=== PATIENT | male | born 1955 | race Caucasian/White ===

== ENCOUNTER 2018-01-17 13:40 | Day surgery (SDC) | payer OTHER, SELFPAY ==
[2018-01-17] VITALS (7 sets, daily range): BP systolic 91–174; BP diastolic 52–101; PULSE 45–64; RESP 14–18; TEMP 35.9–37; O2SAT 98–100
[2018-01-17] MEDS: Lactated Ringers 1,000 ML 80 ML IV (14:21)
[2018-01-17] MEDS: MetroNIDAZOLE 500 MG/100 ML BAG 100 MG IVPB (14:30)
[2018-01-17] MEDS: Bupivacaine 0.5% Pres-Free 30 ML VIAL (15:23)
--- NOTE | 2018-01-17 16:06 | ROE_ITS ---
Date of service: 01/17/18 Operative Note DATE OF PROCEDURE: 01/17/18 PRE-OP DIAGNOSIS: Internal strangulated hermorrhoids and external hemorrhoids POST-OP DIAGNOSIS: same PROCEDURE: Circumferential internal and external hemorrhoidectomy SURGEON: Huong Holcomb ANESTHESIA: GETA (jc Manuel CRNA) and local (Exparel mixed 50/50 with 0.5% marcaine) ESTIMATED BLOOD LOSS: 10 PATHOLOGY: none sent COMPLICATIONS: None Patient was transported to: PACU Patient's condition: stable Indications: Mr. Dumont is a pleasant 62 year old male with a history of Grade 4 internal hemorrhoids who was seen in the office today for increased pain and inability to reduce the hemorrhoids. Risks, benefits and complications of the procedure were reviewed. Complications include but are not limited to bleeding, pain, infection, recurrance and adverse reaction to the medications. Findings: Grade 4 strangulated internal hemorrhoids as well as grade 4 thrombosed external hemorrhoids. Procedure Description: After informed consent was obtained the patient was taken to the operating room and placed in a supine position on the gurney. Monitors were applied and he was then placed under general anesthesia and intubated. Once the tube was secured the patient was placed in a prone position on the operating room table making sure that he had padding under his arms hips and knees. A timeout was then done and the patient's name, date of , allergies to medications, antibiotic given, procedure type were all reviewed. Next the patient's buttocks were using tape on either side pulling them laterally. His anal area was then prepped and draped in a sterile surgical fashion using iodine. Next a rectal examination was done with my finger and I could not feel any masses internally. The large grade 4 strangulated internal hemorrhoid on the left side was grasped with a [place] and excised using a LigaSure instrument. And make sure that the thrombosed vessels underneath were cut and coagulated. Next the large grade 4 external hemorrhoid on that same side was grasped with [place] and again resected using a LigaSure instrument. There were a few areas that pulled apart and these were closed using 2-0 chromic suture. The same thing was done on the grade 4 internal hemorrhoids on the right side as well as the external grade 4 hemorrhoids on the right side. Once all the edematous tissue and the underlying vessels were removed and anal scope was gently introduced. No other internal hemorrhoids were identified at this time. Next the Exparel and Marcaine mixture was injected circumferentially around the anus for postoperative pain. Skin was cleaned with normal saline and a pad and panties were placed on the patient. The drapes were removed and the patient was placed back on the [place] in a supine. Patient was then woken up and extubated and taken back to recovery in stable condition. Instrument needle and sponge counts were correct at the end of the case x2. This operative report was dictated with Jay.
--- NOTE | 2018-01-17 16:08 | W.PM.DSUDISC ---
Discharge Plan Disposition Patient Disposition: HOME Condition: Fair Discharge Details Reason For Visit: Strangulated internal and external hemorrhoids Attending Provider: Huong Holcomb Primary Care Provider: Caro Paredes V Home Meds and New Rx's Prescriptions: New hydrocodone-acetaminophen 5-325 mg tablet 1 tab PO Q6H PRN (Reason: pain) Qty: 14 RF: 0 ibuprofen 600 mg tablet 600 mg PO QID PRN (Reason: pain) Qty: 90 RF: 0 metronidazole 500 mg tablet 500 mg PO TID Qty: 6 RF: 0 lidocaine HCl 2 % jelly 1 applic TP TID PRN (Reason: pain) Qty: 50 RF: 0 Continue docusate sodium [Colace] 100 MG capsule 100 mg PO BID Qty: 30 RF: 1 Discontinued ibuprofen 200 MG capsule 400 mg PO PRN PRNRF: 0 Discharge Instructions Instructions: Hemorrhoidectomy (DC) Additional Instructions: Follow up: January 28. Please call my office on Saturday to get a time. Medications: Tylenol 650 mg every 6 hours as needed Ibuprofen 600 mg every 6 hours as needed You may alternate between tylenol and Ibuprofen every 3 hours Hydrocodon/tylenol, 1 tab every 6 hours as needed for severe pain only. Please try to avoid this as it may cause constipation Miralax stool softner as needed daily to avoid constipation Other: Sitz baths at least 4 times a day but may do more often as needed for pain Do not sit for long periods of time Do not strain when going to the bathroom. You may bleed for a while. If it is more then 3-4 tbsp at a time then please call or go to the Emergency department. 1. Because there will be medication in your system for the next 24 hours, you may feel a little sleepy. Your coordination will be affected. Therefore: a. Do not drive or operate dangerous equipment for 24 hours. b. Do not drink alcohol beverages for 24 hours (not even beer). c. Plan to go home and rest for the day. 2. Generally the only restriction on your activity is no lifting, pulling or pushing more then 20 lb for 4 weeks. You may feel fatigued for 2-4 weeks. 3 After you arrive home you may have a light meal and return to a normal diet as you can tolerate it without feeling sick to your stomach. 4. After surgery, you may feel pain or discomfort. Take the medications as prescribed. 5. If there are any questions regarding the findings of your procedure, please feel free to contact your doctor. 6. If you are unable to contact your doctor with a problem, contact the hospital at [phone]. 7. Continue all your regular medications unless directed otherwise. 8. You are being prescribed a Narcotic pain medication. Narcotic pain medications have an addiction potential for everyone. It is important that you take the medication as prescribed There is a limit on how many tablets we can prescribed, this has been decided by the state Please keep the medications in a secure place and do not let anyone know you have them at home If you have medication left over please discard them by crushing them in a little water and mixing in used coffee grounds or cat litter and putting in the trash. I understand the above instructions and have no questions. Signature of Patient or Responsible Adult Escort Date/Time Name of Responsible Adult Escort Signature of Nurse Date/Time Activity:: Activity as Tolerated Diet:: high fiber diet Discharge Orders Discharge Orders: Discharge Order (Routine); Ordered 01/17/18 Ordered By: Huong Holcomb DS: Diagnosis Discharge Diagnosis (1) Strangulated internal hemorrhoids: Status: Acute (2) Strangulated external hemorrhoids: Status: Acute
== END 2018-01-17 17:25 | disposition home or self-care (01) ==
PROVIDERS: PCP Family Medicine; Visit Provider Surgery
PROC: (CPT 46260; principal; 2018-01-17 14:00)
DX: K64.3 Fourth degree hemorrhoids (principal); K64.5 Perianal venous thrombosis; F17.210 Nicotine dependence, cigarettes, uncomplicated
CPT/HCPCS: 46260; J0131; J2250; J2405; J3010

== ENCOUNTER 2018-01-20 10:14 | Emergency (ER) | payer OTHER, SELFPAY ==
[2018-01-20 10:24] VITALS: BP 170/109; PULSE 81; RESP 22; TEMP 36.9; O2SAT 100
--- NOTE | 2018-01-20 10:42 | DI.CT_ITS ---
SYMPTOM/DIAGNOSIS: ABD PAIN AFTER HEMORRHOIDECTOMY, CONSTIPATION ABDOMEN AND PELVIC CT: CT examination of the abdomen and pelvis was performed without contrast administration. There is a bi-lobed right middle lobe intrapulmonary nodule measuring between 6 and 7 mm. in diameter. This appears stable in comparison with previous chest CT of 12/13/16. No additional findings in the lung bases. Liver, spleen and pancreas appear unremarkable by noncontrast criteria. Gallbladder and bile ducts are CT normal. Adrenals and kidneys appear normal. No urinary tract calcification or obstruction. Abdominal aorta is of normal diameter. No abdominal or pelvic adenopathy. No significant abdominal wall hernia. Colonic diverticulosis noted without diverticulitis. Normal appearance of the appendix. Moderate quantity of fecal material throughout the colon consistent with mild constipation. CONCLUSION: No evidence of acute intra-abdominal process. Stable bi-lobed right middle lobe, well circumscribed intrapulmonary nodule, low dose chest CT recommended for follow up in 12 months.
--- NOTE | 2018-01-20 10:44 | W.ED.GENAD ---
Discharge Plan Disposition Patient Disposition: HOME Condition: Improving Discharge Details Chief Complaint: Abd Prob Clinical Impression: Constipation Primary Care Provider: Caro Paredes V ED Provider: Joe Parisi Home Meds and New Rx's Prescriptions: Continue docusate sodium [Colace] 100 MG capsule 100 mg PO BID Qty: 30 RF: 1 hydrocodone-acetaminophen 5-325 mg tablet 1 tab PO Q6H PRN (Reason: pain) Qty: 14 RF: 0 metronidazole 500 mg tablet 500 mg PO TID Qty: 6 RF: 0 Discharge Instructions Instructions: Constipation (ED) Additional Instructions: Home to rest today. Continue your medications as prescribed including lidocaine ointment topically on rectum Begin MiraLAX as prescribed by . Return to the emergency department for any acute concerns Medical Decision Making 62-year-old male who presents with abdominal pain postop day #3 status post hemorrhoidectomy. He is mildly tender in his abdomen but does not of the fever and his vital signs are stable. He is describing constipation. Differential diagnosis would include ileus, bowel obstruction, perforation. Patient was given small aliquots of analgesic. He is referred for CT scan and laboratory testing. The patient's diagnostic studies are reassuring without evidence of infection, perforation, obstruction. Does have a moderate fecal load. Patient's pain is improved. He did not been taking his prescribed MiraLAX which I have him initiate. He is stable for outpatient management and will return to the ER for any acute concerns. Lab Data Lab results reviewed: Yes I reviewed the patient's lab results. Laboratory Tests Range/Units 01/20/18 01/20/18 10:20 10:20 WBC (4.4-10.8) k/cumm 5.72 RBC (4.50-6.00) m/cumm 4.88 Hgb (13.5-17.5) g/dL 15.2 Hct (40.0-50.0) % 43.6 MCV (80-95) fL 89.3 MCH (27.0-33.0) pg 31.1 MCHC (32.0-36.0) g/dL 34.9 RDW (11.8-14.1) % 13.7 Plt Count (130-400) x1000/uL 174 MPV (8.0-11.0) fL 10.4 Immature Gran % 0.2 Neutrophils % 72.7 Lymphocytes % 18.9 Monocytes % 7.2 Eosinophils % 0.5 Basophils % 0.5 Absolute Neutrophils (1.2-6.7) k/cumm 4.16 Absolute Lymphocytes (1.2-3.4) k/cumm 1.08 L Absolute Monocytes (0.11-0.7) k/cumm 0.41 Absolute Eosinophils (0.0-0.7) k/cumm 0.03 Absolute Basophils (0.0-0.2) k/cumm 0.03 Sodium (136-145) mmol/L 140 Potassium (3.5-5.1) mmol/L 4.0 Chloride (98-107) mmol/L 103 Carbon Dioxide (21.0-32.0) mmol/L 19.7 L Anion Gap (3-11) mmol/L 17.3 H BUN (7-18) mg/dL 21 H Creatinine (0.70-1.30) mg/dL 0.95 Estimated GFR/1.73 m2 (mL/min/1.73m2) >= 60.00 Glucose (70-100) mg/dL 82 Calcium (8.5-10.1) mg/dL 9.0 Total Bilirubin (0.2-1.0) mg/dL 0.8 AST (15-37) U/L 18 ALT (12-78) U/L 21 Alkaline Phosphatase (46-116) U/L 71 Total Protein (6.4-8.2) g/dL 7.8 Albumin (3.4-5.0) g/dL 3.8 HPI General Mode of arrival: ambulatory. Date/Time Provider Initiated Documentation: 01/20/18 10:32. Limitations to Documentation: no limitations. Information obtained by: patient. History of Present Illness 62 year old M presents to the emergency department with the chief complaint of Abdominal pain, described as moderate, Quality is described as aching, and is localized to the abdomen. Patient started experiencing this day(s) and it has been constant. No relieving factors improve symptom(s), No exacerbating factors reported . Patient notes headaches, loss of appetite, malaise and nausea/vomiting. HPI Narrative: Abdominal pain: 62-year-old male who underwent successful hemorrhoidectomy on Saturday. Now presents postop day #3 with 3 days of constant lower abdominal pain, nausea, mild bloating, associated constipation. He had subjective fevers. Minimal exacerbating or ameliorating factors. Related Data Home Medications Medication Instructions Recorded Confirmed docusate sodium [Colace] 100 mg PO BID #30 cap 04/01/13 01/20/18 hydrocodone-acetaminophen 1 tab PO Q6H PRN #14 tab 01/17/18 01/20/18 metronidazole 500 mg PO TID #6 tab 01/17/18 01/20/18 Previous Rx's Medication Instructions Recorded docusate sodium [Colace] 100 mg PO BID #30 cap 04/01/13 hydrocodone-acetaminophen 1 tab PO Q6H PRN #14 tab 01/17/18 metronidazole 500 mg PO TID #6 tab 01/17/18 Allergies Allergy/AdvReac Type Severity Reaction Status Date / Time ct scan dye Allergy Mild Hives Uncoded 03/19/17 08:10 General Stated Complaint: Abd Prob PURA: 3 Review of Systems Review of Systems 8 systems reviewed and otherwise negative [facility] Medical History Internal hemorrhoids with complication (Acute) Smoker TIA (transient ischemic attack) Social History Smoking/Tobacco Use Status: Current every day Surgical History Colonoscopy - MAC (03/19/17) Hemorrhoidectomy Exam Narrative Exam Narrative: GEN: awake, alert, oriented 3. Pleasant, well groomed, interactive. HEAD: Normocephalic, atraumatic ENT: Mucous membranes moist, oropharynx unremarkable, External ear exam unremarkable EYES: PERRL, EOMI NECK: Full ROM, no FRITZ, no menigismus CHEST/RESP: Nontender, clear to auscultation bilateral, no wheeze/rhonchi/rales CARDIOVASCULAR: RRR, no murmur, rub arcelia. 2+ Rad pulse bilateral ABDOMEN: Soft, tender in the left lower quadrant without rebound or guard, no mass. +Bowel sounds. He has perirectal ecchymosis and tenderness. Digital rectal exam deferred EXT: Full ROM, no edema, no rash Neuro: Grossly normal neurologic exam, conversant, interactive. Psych: Speech fluent, thoughts congruent, affect normal Course Vital Signs Temperature 36.9 C 01/20/18 10:24 Pulse 81 01/20/18 10:24 Respiratory Rate 22 01/20/18 10:24 Blood Pressure 170/109 H 01/20/18 10:24 Pulse Oximetry 100 01/20/18 10:24 Temperature 36.9 C 01/20/18 10:24 Temperature Source Temporal Artery Scan 01/20/18 10:24 Pulse 81 01/20/18 10:24 Respiratory Rate 22 01/20/18 10:24 Respiratory Effort 01/20/18 10:28 Blood Pressure 170/109 H 01/20/18 10:24 Pulse Oximetry 100 01/20/18 10:24 Oxygen Delivery Method Room Air 01/20/18 10:24 Oxygen Flow Rate 0 01/20/18 10:24 Pain Level 4 01/20/18 10:24
--- NOTE | 2018-01-20 10:47 | ED.GENADUL_ITS ---
Discharge Plan Disposition Patient Disposition: HOME Condition: Improving Discharge Details Chief Complaint: Abd Prob Clinical Impression: Constipation Primary Care Provider: Caro Paredes V ED Provider: Joe Parisi Home Meds and New Rx's Prescriptions: Continue docusate sodium [Colace] 100 MG capsule 100 mg PO BID Qty: 30 RF: 1 hydrocodone-acetaminophen 5-325 mg tablet 1 tab PO Q6H PRN (Reason: pain) Qty: 14 RF: 0 metronidazole 500 mg tablet 500 mg PO TID Qty: 6 RF: 0 Discharge Instructions Instructions: Constipation (ED) Additional Instructions: Home to rest today. Continue your medications as prescribed including lidocaine ointment topically on rectum Begin MiraLAX as prescribed by . Return to the emergency department for any acute concerns Medical Decision Making 62-year-old male who presents with abdominal pain postop day #3 status post hemorrhoidectomy. He is mildly tender in his abdomen but does not of the fever and his vital signs are stable. He is describing constipation. Differential diagnosis would include ileus, bowel obstruction, perforation. Patient was given small aliquots of analgesic. He is referred for CT scan and laboratory testing. The patient's diagnostic studies are reassuring without evidence of infection, perforation, obstruction. Does have a moderate fecal load. Patient's pain is improved. He did not been taking his prescribed MiraLAX which I have him initiate. He is stable for outpatient management and will return to the ER for any acute concerns. Lab Data Lab results reviewed: Yes I reviewed the patient's lab results. Laboratory Tests Range/Units 01/20/18 01/20/18 10:20 10:20 WBC (4.4-10.8) k/cumm 5.72 RBC (4.50-6.00) m/cumm 4.88 Hgb (13.5-17.5) g/dL 15.2 Hct (40.0-50.0) % 43.6 MCV (80-95) fL 89.3 MCH (27.0-33.0) pg 31.1 MCHC (32.0-36.0) g/dL 34.9 RDW (11.8-14.1) % 13.7 Plt Count (130-400) x1000/uL 174 MPV (8.0-11.0) fL 10.4 Immature Gran % 0.2 Neutrophils % 72.7 Lymphocytes % 18.9 Monocytes % 7.2 Eosinophils % 0.5 Basophils % 0.5 Absolute Neutrophils (1.2-6.7) k/cumm 4.16 Absolute Lymphocytes (1.2-3.4) k/cumm 1.08 L Absolute Monocytes (0.11-0.7) k/cumm 0.41 Absolute Eosinophils (0.0-0.7) k/cumm 0.03 Absolute Basophils (0.0-0.2) k/cumm 0.03 Sodium (136-145) mmol/L 140 Potassium (3.5-5.1) mmol/L 4.0 Chloride (98-107) mmol/L 103 Carbon Dioxide (21.0-32.0) mmol/L 19.7 L Anion Gap (3-11) mmol/L 17.3 H BUN (7-18) mg/dL 21 H Creatinine (0.70-1.30) mg/dL 0.95 Estimated GFR/1.73 m2 (mL/min/1.73m2) >= 60.00 Glucose (70-100) mg/dL 82 Calcium (8.5-10.1) mg/dL 9.0 Total Bilirubin (0.2-1.0) mg/dL 0.8 AST (15-37) U/L 18 ALT (12-78) U/L 21 Alkaline Phosphatase (46-116) U/L 71 Total Protein (6.4-8.2) g/dL 7.8 Albumin (3.4-5.0) g/dL 3.8 HPI General Mode of arrival: ambulatory . Date/Time Provider Initiated Documentation: 01/20/18 10:32 . Limitations to Documentation: no limitations . Information obtained by: patient . History of Present Illness 62 year old M presents to the emergency department with the chief complaint of Abdominal pain, described as moderate, Quality is described as aching, and is localized to the abdomen. Patient started experiencing this day(s) and it has been constant. No relieving factors improve symptom(s), No exacerbating factors reported . Patient notes headaches, loss of appetite, malaise and nausea/vomiting. HPI Narrative: Abdominal pain: 62-year-old male who underwent successful hemorrhoidectomy on Saturday. Now presents postop day #3 with 3 days of constant lower abdominal pain, nausea, mild bloating, associated constipation. He had subjective fevers. Minimal exacerbating or ameliorating factors. Related Data Home Medications Medication Instructions Recorded Confirmed docusate sodium [Colace] 100 mg PO BID #30 cap 04/01/13 01/20/18 hydrocodone-acetaminophen 1 tab PO Q6H PRN #14 tab 01/17/18 01/20/18 metronidazole 500 mg PO TID #6 tab 01/17/18 01/20/18 Previous Rx's Medication Instructions Recorded docusate sodium [Colace] 100 mg PO BID #30 cap 04/01/13 hydrocodone-acetaminophen 1 tab PO Q6H PRN #14 tab 01/17/18 metronidazole 500 mg PO TID #6 tab 01/17/18 Allergies Allergy/AdvReac Type Severity Reaction Status Date / Time ct scan dye Allergy Mild Hives Uncoded 03/19/17 08:10 General Stated Complaint: Abd Prob PURA: 3 Review of Systems Review of Systems 8 systems reviewed and otherwise negative [facility] Medical History Internal hemorrhoids with complication (Acute) Smoker TIA (transient ischemic attack) Social History Smoking/Tobacco Use Status: Current every day Surgical History Colonoscopy - MAC (03/19/17) Hemorrhoidectomy Exam Narrative Exam Narrative: GEN: awake, alert, oriented 3. Pleasant, well groomed, interactive. HEAD: Normocephalic, atraumatic ENT: Mucous membranes moist, oropharynx unremarkable, External ear exam unremarkable EYES: PERRL, EOMI NECK: Full ROM, no FRITZ, no menigismus CHEST/RESP: Nontender, clear to auscultation bilateral, no wheeze/rhonchi/rales CARDIOVASCULAR: RRR, no murmur, rub arcelia. 2+ Rad pulse bilateral ABDOMEN: Soft, tender in the left lower quadrant without rebound or guard, no mass. +Bowel sounds. He has perirectal ecchymosis and tenderness. Digital rectal exam deferred EXT: Full ROM, no edema, no rash Neuro: Grossly normal neurologic exam, conversant, interactive. Psych: Speech fluent, thoughts congruent, affect normal Course Vital Signs Temperature 36.9 C 01/20/18 10:24 Pulse 81 01/20/18 10:24 Respiratory Rate 22 01/20/18 10:24 Blood Pressure 170/109 H 01/20/18 10:24 Pulse Oximetry 100 01/20/18 10:24 Temperature 36.9 C 01/20/18 10:24 Temperature Source Temporal Artery Scan 01/20/18 10:24 Pulse 81 01/20/18 10:24 Respiratory Rate 22 01/20/18 10:24 Respiratory Effort 01/20/18 10:28 Blood Pressure 170/109 H 01/20/18 10:24 Pulse Oximetry 100 01/20/18 10:24 Oxygen Delivery Method Room Air 01/20/18 10:24 Oxygen Flow Rate 0 01/20/18 10:24 Pain Level 4 01/20/18 10:24
[2018-01-20] MEDS: HYDROmorphone 2 MG/ML VIAL 0.5 MG IVP (10:50)
[2018-01-20] MEDS: Lactated Ringers 1,000 ML 1000 ML IV (10:50)
[2018-01-20] MEDS: Ondansetron 4 MG/2 ML VIAL IVP (10:51)
[2018-01-20 10:52] LABS: Abs Immature Grans 0.01 k/cumm (0.0-0.09); Absolute Basophil Count 0.03 k/cumm (0.0-0.2); Absolute Eosinophil Count 0.03 k/cumm (0.0-0.7); Absolute Lymphocyte Count 1.08 k/cumm (1.2-3.4); Absolute Monocyte Count 0.41 k/cumm (0.11-0.7); Absolute Neutrophil Count 4.16 k/cumm (1.2-6.7); Basophils % 0.5; Eosinophils % 0.5; HCT 43.6 % (40.0-50.0); HGB 15.2 g/dL (13.5-17.5); Immature Grans % 0.2; Lymphocytes % 18.9; Mean Corp. HGB Concentration 34.9 g/dL (32.0-36.0); Mean Corpuscular Hemoglobin 31.1 pg (27.0-33.0); Mean Corpuscular Volume 89.3 fL (80-95); Mean Platelet Volume 10.4 fL (8.0-11.0); Monocytes % 7.2; Neutrophils % 72.7; Platelet Count 174 x1000/uL (130-400); RBC 4.88 m/cumm (4.50-6.00); RBC Distribution Width 13.7 % (11.8-14.1); White Blood Cell Count 5.72 k/cumm (4.4-10.8)
[2018-01-20 11:04] LABS: ALT 21 U/L (12-78); AST 18 U/L (15-37); Albumin 3.8 g/dL (3.4-5.0); Alkaline Phosphatase 71 U/L (46-116); Anion Gap 17.3 mmol/L (3-11); BUN 21 mg/dL (7-18); Bilirubin, Total 0.8 mg/dL (0.2-1.0); CO2 19.7 mmol/L (21.0-32.0); CREATININE 0.95 mg/dL (0.70-1.30); Chloride 103 mmol/L (98-107); Glucose 82 mg/dL (70-100); Sodium 140 mmol/L (136-145); Total Protein 7.8 g/dL (6.4-8.2)
[2018-01-20 12:01] VITALS: BP 147/98; PULSE 65; RESP 17; TEMP 37.1; O2SAT 99
== END 2018-01-20 13:25 | disposition home or self-care (01) ==
PROVIDERS: Emergency Provider Emergency Medicine; PCP Family Medicine
DX: K59.00 Constipation, unspecified (principal); R10.30 Lower abdominal pain, unspecified; G89.18 Other acute postprocedural pain
CPT/HCPCS: 36415; 80053; 96361; 96374; 96375; 99284; 74176; 85025; J2405

== ENCOUNTER 2019-11-06 19:13 | Outpatient (REF) | payer MEDICARE, SELFPAY | END 2019-11-06 19:33 | LOC: NCHCN 19:13 | PROVIDERS: PCP Family Medicine; Visit Provider Physician Assistant Medical | DX: L02.91 Cutaneous abscess, unspecified (principal) | CPT/HCPCS: 87070; 87205 ==

== ENCOUNTER 2019-11-23 17:32 | Emergency (ER) | payer MEDICARE, SELFPAY ==
[2019-11-23 17:34] VITALS: BP 166/87; PULSE 75; TEMP 36.6; O2SAT 100
--- NOTE | 2019-11-23 17:38 | ED.GENADUL_ITS ---
Discharge Plan Disposition Patient Disposition: HOME Condition: Good Discharge Details Chief Complaint: Cellulitis Clinical Impression: Cellulitis, neck Primary Care Provider: Caro Paredes V ED Provider: Misty Lopez Home Meds and New Rx's Prescriptions: New amoxicillin 875 mg tablet 875 mg PO BID Qty: 10 RF: 0 doxycycline hyclate 100 mg capsule 100 mg PO BID Qty: 10 RF: 0 Continued mineral oil oil 15 ml PO DAILY RF: 0 docusate sodium [Colace] 100 MG capsule 100 mg PO BID Qty: 30 RF: 1 Discharge Instructions Instructions: Cellulitis (ED) Additional Instructions: Encourage water intake. Use Tylenol and/or ibuprofen as needed for discomfort. Please take antibiotics as prescribed. Even if symptoms improve, please take the entire course. I would like you to be reevaluated by primary care this week. They may choose to extend the antibiotics further. If you develop fever/chills, increased pain or other new/worsening symptoms please seek care urgently once again. Referrals: Caro Paredes MD [Primary Care Provider] - Discharge Data Discharge Date/Time-TO BE ENTERED AT DEPARTURE: 11/23/19 23:50 Medical Decision Making Patient is a pleasant 64-year-old gentleman presenting today with chief complaint of cellulitis. He reports that he was diagnosed with cellulitis of his upper back 2 weeks ago. At that time, he was treated with oral Keflex and seemed to recover well from this. States that he began having symptoms 2 weeks ago after he saw a pimple that he tried to open. He reports that pain began to recur. However, he felt that this was more of back pain this time rather than skin pain was seen by his chiropractor. I evaluated him today and noted it to be erythematous and exam concerning for cellulitis. For this reason, patient is not adjusted but rather sought care in the emergency department. He denies any fevers or chills. He has no pain with range of motion of his neck neck, particularly with extension. He denies any new neurologic deficits. On exam, patient is resting comfortably. He does have a well-circumscribed area of erythema that is tender to palpation over his upper back in the right side of his neck. He is point tender near C5, C6. Do not appreciate any swelling or step-off. He does have full range of motion he does worsen discomfort with extension but otherwise is pain-free with movement. His neurologic exam is intact. Lungs are clear, normal cardiac exam. Patient discussed concerns. Primarily concerned for potential osteomyelitis. However, his discomfort may be associated slowly with cellulitis. He does have a known allergy to CT scan dye but states that he is done well with preventative medications followed by CT scan historically. We will complete this as I would like to evaluate for underlying potential osteomyelitis of the cervical vertebra. Otherwise, we will begin patient prophylactically on antibiotics. Labs reviewed. Patient's ESR is elevated at 32. CMP is largely unremarkable. CRP is elevated at 0.55. Lactate within normal limits. Reviewed protocol for premedication of iodinated contrast media allergy. Patient will be given Solu- Medrol 40 mg. We will then give diphenhydramine 50 mg [address] prior to [address]. Patient given 50mg IV benadryl 3 hours after steroids, will image in one hour FINDINGS: Nasopharynx: Unremarkable. Oropharynx: Calcifications are seen within the bilateral palatine tonsils, consistent with tonsillitis. Hypopharynx: Unremarkable. Larynx: Mild mucosal thickening within the aryepiglottic folds. Retropharyngeal space: Unremarkable. Submandibular/Parotid glands: Normal. Glands are normal in size. Thyroid: Normal. No enlarged or calcified nodules. Lymph nodes: Unremarkable. No lymphadenopathy. Trachea: Visualized trachea is unremarkable. Lungs: Moderate centrilobular emphysema is seen within the lung apices. Bones/joints: Postoperative changes of an ACDF at C4-C5. No evidence for hardware loosening or osteomyelitis. Soft tissues: Unremarkable. No significant soft tissue swelling. IMPRESSION: 1. No evidence for an abscess or osteomyelitis within the neck. 2. Mild mucosal thickening within the area of the glottic folds suggesting laryngitis 3. Moderate centrilobular emphysema within the lung apices. The findings noted in the larynx and tonsils are inconsistent with physical exam and history. I did question the patient once again and he denies any sore throat. We did discuss the findings noted above. Patient be treated for cellulitis. I will give him a dose of antibiotics to go home for tomorrow m charo. Encourage close follow-up with primary care. Patient was given strict return precautions. He continues to feel improved. All his questions and concerns were addressed and he is in agreement this plan. HPI General Mode of arrival: ambulatory . Date/Time Provider Initiated Documentation: 11/23/19 17:38 . Limitations to Documentation: no limitations . Information obtained by: patient and RN notes reviewed . History of Present Illness 64 year old M presents to the emergency department with the chief complaint of cellulitis of upper back and neck, described as moderate and similar to prior episodes (similar ), with intensity rated at 6. Quality is described as aching, and is localized to the back. Patient reports no radiation. Patient started experiencing this day(s) and it has been constant. Immobilization improves symptom(s), Movement worsens symptoms (extension of neck) . Patient notes no other symptoms. and rash; denies chest pain, cough, fever/chills, loss of appetite, nausea/vomiting and shortness of breath. Patient did receive the following treatments prior to arrival, none Related Data Home Medications Medication Instructions Recorded Confirmed docusate sodium [Colace] 100 mg PO BID #30 cap 04/01/13 01/28/18 mineral oil 15 ml PO DAILY 01/28/18 01/28/18 amoxicillin 875 mg PO BID #10 tab 11/23/19 doxycycline hyclate 100 mg PO BID #10 cap 11/23/19 Previous Rx's Medication Instructions Recorded docusate sodium [Colace] 100 mg PO BID #30 cap 04/01/13 amoxicillin 875 mg PO BID #10 tab 11/23/19 doxycycline hyclate 100 mg PO BID #10 cap 11/23/19 Allergies Allergy/AdvReac Type Severity Reaction Status Date / Time Iodinated Contrast Media Allergy Mild Hives Unverified 11/23/19 23:12 General Stated Complaint: Cellulitis PURA: 3 Review of Systems Constitutional Constitutional: Reports as per HPI, Denies chills, Denies fatigue, Denies fever(s), Denies frequent falls and Denies headache(s) Eyes Eyes: Denies change in vision ENT Ears, Nose, Mouth, and Throat: Denies headache(s) Cardiovascular Cardiovascular: Denies chest pain, Denies dyspnea and Denies dyspnea on exertion Respiratory Respiratory: Denies cough, Denies dyspnea and Denies dyspnea on exertion Gastrointestinal Gastrointestinal: Denies abdominal pain, Denies change in bowel habits and Denies fecal incontinence Genitourinary Genitourinary: Reports as per HPI, Denies urinary hesitancy and Denies urinary incontinence Musculoskeletal Musculoskeletal: Reports as per HPI, Reports back pain, Denies muscle weakness, Denies numbness, Denies radiating pain into limb, Reports stiffness and Denies tingling Integumentary/Breasts Skin/Breast: Reports as per HPI, Reports erythema and Reports skin pain Neurologic Neurologic: Reports as per HPI, Denies frequent falls, Denies headache(s), Denies localized weakness, Denies numbness, Denies radicular pain, Denies sensory deficit, Denies tingling and Denies paresthesias Endocrine Endocrine: Denies fatigue [facility] Medical History Internal hemorrhoids with complication (Acute) Smoker TIA (transient ischemic attack) Surgical History Colonoscopy - MAC (03/19/17) Hemorrhoidectomy (~01/17/18) Social History Smoking/Tobacco Use Status: Current every day Tobacco Type: cigarettes Alcohol Intake: never Drug use: Daily Substance use type: marijuana Do you feel safe at home: Yes Do you feel safe in your relationship?: Yes Exam Const General: cooperative, healthy appearing, comfortable, no acute distress, well developed and well groomed Nutritional Appearance: average body habitus and well nourished Orientation: alert and awake Eyes General: appearance normal, both eyes and all related structures Neck Neck: normal visual inspection, full ROM, no lymphadenopathy and no meningeal signs Resp Effort & Inspection: normal respiratory effort and able to speak in complete sentences Auscultation: clear to auscultation bilaterally, no rales, no rhonchi and no wheezes Cardio Rate: regular rate Rhythm: regular rhythm Heart Sounds: S1 normal and S2 normal Back/Spine/Pelvis Back/spine/pelvis image: 1. Area of erythema. This is tender palpation. Maximal tenderness with palpation over C5-C6. No induration, fluctuance. Well defined area of erytema. This does wrap around to the superior right chest wall. He has full ROM of his neck, pain elicited over C5-C6 with flexion. No limitation of ROM. Skin General skin exam: no rashes or lesions noted Neuro General: patient alert and patient awake Cognition: normal cognition Speech: speech normal Gait: normal gait Motor: muscle tone normal throughout, strength 5/5 throughout, no movement abnormalities noted and no fasciculations Sensory Exam: no sensory deficits noted (no saddle paresthesias, normal sensation BUE) DTR's: Rt Brachioradialis: 2+ and Lt Brachioradialis: 2+ Coordination: [id number] test normal Extrem General: normal to inspection, full ROM, capillary refill normal, no joint enlargement, no pedal edema, no calf tenderness and normal gait Right upper extremity: normal to inspection, full ROM and normal capillary refill Left upper extremity: normal to inspection, full ROM and normal capillary refill Psych Appearance: grossly normal and well kempt Mental Status: mental status grossly normal Speech and Movement: speech and movement normal Course Vital Signs Vital signs: Vital Signs Temperature 36.6 C 11/23/19 17:34 Pulse 75 11/23/19 17:34 Pulse Oximetry 100 11/23/19 17:34 Temperature 36.6 C 11/23/19 17:34 Temperature Source Temporal Artery Scan 11/23/19 17:34 Pulse 75 11/23/19 17:34 Blood Pressure Position Sitting 11/23/19 17:34 Pulse Oximetry 100 11/23/19 17:34 Oxygen Delivery Method Room Air 11/23/19 17:34 Oxygen Flow Rate 0 11/23/19 17:34 Pain Level 6 11/23/19 17:34
[2019-11-23] MEDS: Normal Saline 1,000 ML 1000 ML IV (18:14)
[2019-11-23 18:17] LABS: Abs Immature Grans 0.01 10^3/uL (0.0-0.06); Absolute Basophil Count 0.02 10^3/uL (0.0-0.2); Absolute Eosinophil Count 0.07 10^3/uL (0.0-0.7); Absolute Lymphocyte Count 1.28 10^3/uL (1.2-3.4); Absolute Monocyte Count 0.41 10^3/uL (0.1-0.8); Absolute Neutrophil Count 2.66 10^3/uL (1.2-6.7); Basophils % 0.4; Eosinophils % 1.6; HCT 40.2 % (40.0-50.0); HGB 13.4 g/dL (13.5-17.5); Immature Grans % 0.2; Lactate 0.8 mmol/L (0.6-1.4); Lymphocytes % 28.8; MCH 30.2 pg (27.0-33.0); MCHC 33.3 % (32.0-36.0); MCV 90.5 fL (80-95); MPV 10.1 fL (8.0-11.0); Monocytes % 9.2; Neutrophils % 59.8; Nucleated RBC 0 %; Platelet Count 190 10^3/uL (130-400); RBC 4.44 10^6/uL (4.36-5.78); RDW 13.2 % (11.8-14.1); RDW-SD 44.2 fL; WBC 4.45 10^3/uL (4.4-10.8)
[2019-11-23] MEDS: cefTRIAXone 2 GM/50 ML BAG IVPB (18:34)
[2019-11-23 18:35] LABS: ALT 33 U/L (16-63); AST 27 U/L (15-37); Albumin 3.7 g/dL (3.4-5.0); Alkaline Phosphatase 89 U/L (46-116); Anion Gap 11.9 mmol/L (3-11); BUN 18 mg/dL (7-18); Bilirubin, Total 0.6 mg/dL (0.2-1.0); C-Reactive Protein 0.55 mg/dL (0.0-0.3); CO2 24.1 mmol/L (21.0-32.0); CREATININE 1.02 mg/dL (0.70-1.30); Calcium 8.9 mg/dL (8.5-10.1); Chloride 105 mmol/L (98-107); Glucose 94 mg/dL (74-106); Potassium 3.9 mmol/L (3.5-5.1); Sodium 141 mmol/L (136-145); Total Protein 7.6 g/dL (6.4-8.2)
[2019-11-23] MEDS: methylPREDNISolone SUCC 40 MG VIAL IVP (18:51)
[2019-11-23 18:54] LABS: ESR 32 mm/hr (1-20)
[2019-11-23] MEDS: VANCOMYCIN 1,000 MG in Normal Saline 250 ML 166.6666 MG IVPB (19:11)
--- NOTE | 2019-11-23 19:41 | NUR.NOTE ---
Ambulated to BR with steady gait. Plan for benadryl at 2134, CT at 2234. Pt reports hx of hives with CT contrast in past.
--- NOTE | 2019-11-23 21:35 | DI.CT_ITS ---
EXAM: CT NECK W CLINICAL HISTORY: cellulitis, concerned for osteomyelitis. TECHNIQUE: Imaging Protocol: Axial computed tomography images with coronal and sagittal reformatted images were created and reviewed CONTRAST MATERIAL: Intravenous: Omnipaque 350 Contrast volume:structured data in ml Contrast route:I V - Oral: yes / no COMPARISON: No exams were available for comparison FINDINGS: Parotids/submandibular/thyroid gland: Normal. Lymphadenopathy: There is scattered lymph nodes seen along the level one to level three all measurin g less than 8 mm in short axis diameter which are physiologic in nature. Carotids/Jugular: Mild plaque at the common carotid bulbs. No significant stenosis. Soft tissues: There is no evidence of abscess. The floor the mouth is unremarkable. The epiglottis a nd vocal cords are within normal limits. There are punctate calcifications in the palatine tonsils, consistent with previous tonsillitis. The upper lobes show emphysematous changes. Bones: There has been previous anterior cervical disc fusion at C4-5. No bony destruction is seen. There are degenerative disc changes at C3-4 and C5-6. IMPRESSION: No evidence of abscess or osteomyelitis. RADIATION DOSE DELIVERED: 375.42mGy.cm Total DLP DATA REPOSITORY: All CT scans at this facility are submitted to the National Radiology Data Registry (NRDR) Dose Index Registry (DIR) with the [employer] (ACR). RADIATION OPTIMIZATION: All CT scans at this facility use at least one of these dose optimization te chniques: automated exposure control; mA and/or kV adjustment per patient size (includes targeted exa ms where dose is matched to clinical indication); or iterative reconstruction.
[2019-11-23] MEDS: diphenhydrAMINE 50 MG/ML VIAL IVP (21:44)
[2019-11-23] MEDS: Normal Saline Flush 10 ML SYR IVP (21:44)
[2019-11-23 21:58] VITALS: BP 172/100; PULSE 55; RESP 16; TEMP 36.5; O2SAT 99
[2019-11-23 22:52] VITALS: BP 133/88; PULSE 48; RESP 18; O2SAT 99
[2019-11-23] MEDS: Omnipaque 350 MG/ML 100 ML BTL IJ (22:52)
[2019-11-23] MEDS: Normal Saline - Diluent 50 ML VIAL IV (22:53)
--- NOTE | 2019-11-23 23:26 | DI.VRAD_ITS ---
PROCEDURE INFORMATION: Exam: CT Neck With Contrast Exam date and time: 11/23/2019 10:35 PM Age: 64 years old Clinical indication: Cellulitis of neck; Prior surgery; Patient HX: Cellulitis, concerned for osteomyelitis TECHNIQUE: Imaging protocol: Computed tomography images of the neck with intravenous contrast. COMPARISON: No relevant prior studies available. FINDINGS: Nasopharynx: Unremarkable. Oropharynx: Calcifications are seen within the bilateral palatine tonsils, consistent with tonsillitis. Hypopharynx: Unremarkable. Larynx: Mild mucosal thickening within the aryepiglottic folds. Retropharyngeal space: Unremarkable. Submandibular/Parotid glands: Normal. Glands are normal in size. Thyroid: Normal. No enlarged or calcified nodules. Lymph nodes: Unremarkable. No lymphadenopathy. Trachea: Visualized trachea is unremarkable. Lungs: Moderate centrilobular emphysema is seen within the lung apices. Bones/joints: Postoperative changes of an ACDF at C4-C5. No evidence for hardware loosening or osteomyelitis. Soft tissues: Unremarkable. No significant soft tissue swelling. IMPRESSION: 1. No evidence for an abscess or osteomyelitis within the neck. 2. Mild mucosal thickening within the area of the glottic folds suggesting laryngitis. 3. Moderate centrilobular emphysema within the lung apices. Dictated and Authenticated by: Shamika Mata MD. Ordering:BEBE Jay MD
[2019-11-24] MEDS: Amoxicillin 875 MG TAB PO (00:01)
[2019-11-24] MEDS: Doxycycline Hyclate 100 MG CAP PO (00:01)
[2019-11-24 00:02] VITALS: BP 160/88; PULSE 66; RESP 16; TEMP 36.5; O2SAT 98
== END 2019-11-23 23:50 | disposition home or self-care (01) ==
PROVIDERS: Emergency Provider Physician Assistant; PCP Family Medicine
DX: L03.221 Cellulitis of neck (principal); Z91.041 Radiographic dye allergy status
CPT/HCPCS: 36415; 70491; 80053; 85652; 87040; 96361; 96365; 96366; 96367; 96375; 99284; 83605; 85025; 86140; J1200; J3490

== ENCOUNTER 2020-08-25 01:52 | Outpatient (CLI) | payer MEDICARE, SELFPAY ==
--- NOTE | 2020-08-25 | DI.CTLCSR_ITS ---
Exam(s) CT CHEST LUNG CANCER SCREEN EXAM: CT CHEST LUNG CANCER SCREEN CLINICAL HISTORY: SMOKER, F17.210. TECHNIQUE: Imaging Protocol: Low Dose Technique CONTRAST MATERIAL: None COMPARISON: CT CHEST - LUNG CANCER SCREENING from 12/13/2016 FINDINGS: CHEST: LUNGS: There is some pleural based small infiltrate in the posterior aspect of the left upper lobe, m ore evident than previous.. Also increased pleural base markings in the posterior basal segment of t he left lower lobe, also somewhat benign appearance. No pleural effusion. In the opposite-right mila g there is also small subpleural nodular infiltrate over the posterior aspect of the right upper lobe . There is subpleural nodule in the anterior aspect of the right middle lobe which is unchanged from the previous study. Also benign-appearing increased markings in the posterior basal segment of the right lower lobe. No pleural effusions on either side. There are no significant focal findings in t he trachea and mainstem bronchi. MEDIASTINUM: Density in the anterior mediastinal fat is unchanged and probably thymus remnant more so than actual adenopathy. No obvious new hilar nor mediastinal adenopathy. No axillary adenopathy. No supraclavicular adenopathy. CARDIAC: Heart size is normal. There is no pericardial effusion.Caliber of the thoracic aorta is wit hin normal limits. OTHER: No obvious adrenal masses. OSSEOUS: No significant osseous lesions.. IMPRESSION: 1. Compared to the prior screening CT scan of 2016 there is increase in subpleural markings bilateral ly as described above. These presently exhibit somewhat benign characteristics but were not previous ly present and therefore recommend repeat CT scan in 6 months. 2. Small nodule in the right middle lobe is unchanged from 2017 and therefore benign. 3. Lung RADS Cat 3 - Probably Benign: Probably benign finding(s) - short term follow-up suggested; in clude nodules with a low likelihood of becoming a clinically active cancer. Recommend repeat CT scan in 6 months. Lung-RADS 1.0 CATEGORIES: Category 0 - Prior chest CT exam(s) being located for comparison. Category 1 - Annual screening in 12 months. No nodules or definitely benign nodules. Category 2 - Annual screening in 12 months. Benign appearance. Nodules with low likelihood of becomin g active cancer. Category 3 - 6-month follow-up. Probably benign. Short-term follow-up suggested. Nodules with low lik elihood of becoming active cancer. Category 4A - 3-month follow-up and CT/PET if >8 mm in size. Suspicious finding. Findings which requi re additional testing. Category 4B - Findings which require additional testing and tissue sampling. Modifier S- Potentially clinically significant findings (non lung cancer) RADIATION DOSE DELIVERED: 82.98mGy.cm Total DLP 1.84mGy CTDIvol DATA REPOSITORY: All CT scans at this facility are submitted to the National Radiology Data Registry (NRDR) Dose Index Registry (DIR) with the [employer] (ACR). RADIATION OPTIMIZATION: All CT scans at this facility use at least one of these dose optimization te chniques: automated exposure control; mA and/or kV adjustment per patient size (includes targeted exa ms where dose is matched to clinical indication); or iterative reconstruction.
== END 2020-08-25 02:12 ==
PROVIDERS: PCP Family Medicine; Visit Provider Family Medicine
DX: F17.210 Nicotine dependence, cigarettes, uncomplicated (principal)
CPT/HCPCS: 71271

== ENCOUNTER 2020-09-25 13:39 | Emergency (ER) | payer MEDICARE, SELFPAY ==
--- NOTE | 2020-09-25 13:45 | DI.RAD_ITS ---
Exam(s) XR SACRUM COCCYX EXAM: XR SACRUM COCCYX CLINICAL HISTORY: fall/pain. TECHNIQUE: 2D digital imaging was performed. COMPARISON: No exams were available for comparison FINDINGS: No evidence of sacral fracture nor diastasis of the sacroiliac joints and symphysis pubis. Chronic d isc space narrowing noted in the lower lumbar spine. IMPRESSION: DATA REPOSITORY: RADIATION DOSE DELIVERED:
[2020-09-25 13:49] VITALS: BP 137/101; PULSE 63; TEMP 37.1; O2SAT 99
--- NOTE | 2020-09-25 15:43 | DI.VRAD_ITS ---
PROCEDURE INFORMATION: Exam: XR Sacrum and Coccyx, 2 or More Views Exam date and time: 09/25/2020 1:59 PM Age: 65 years old Clinical indication: Pain in coccyx area; Patient HX: PT fell today, PT passed out. Pain in tailbone area TECHNIQUE: Imaging protocol: XR of the sacrum and coccyx, 2 or more views. COMPARISON: CT ABDOMEN PELVIS WO 01/20/2018 10:50 AM FINDINGS: Bones/joints: The sacrum and coccyx appear intact. Lumbosacral spondylosis is noted. The SI joints appear unremarkable. Soft tissues: Normal. Vasculature: Vascular calcifications are present. IMPRESSION: No acute fracture or dislocation. Chronic degenerative changes of the lumbosacral spine are noted. Dictated and Authenticated by: Abdiel Luna MD. Ordering:CAROL Archuleta MD
== END 2020-09-25 18:38 ==
PROVIDERS: PCP Family Medicine
DX: Z53.21 Procedure and treatment not carried out due to patient leaving prior to being seen by health care provider (principal)
CPT/HCPCS: 72220

== ENCOUNTER 2021-03-14 19:47 | Outpatient (REF) | payer MEDICARE, SELFPAY ==
[2021-03-14 20:18] LABS: Calculated LDL 194 mg/dL (<100); Cholesterol 252 mg/dL (<200); HDL Cholesterol 37 mg/dL (40-60); Triglyceride 106 mg/dL (<150)
[2021-03-15 18:01] LABS: PSA, Screening 1.7 ng/mL (0.0-4.5)
== END 2021-03-14 19:48 | disposition home or self-care (01) ==
LOC: NCHCN 19:47
PROVIDERS: PCP Family Medicine; Visit Provider Family Medicine
DX: Z00.00 Encounter for general adult medical examination without abnormal findings (principal); Z12.5 Encounter for screening for malignant neoplasm of prostate
CPT/HCPCS: 80061; 84153

== ENCOUNTER 2021-04-10 00:36 | Outpatient (CLI) | payer MEDICARE, SELFPAY ==
--- NOTE | 2021-04-10 15:00 | DI.CTLCSR_ITS ---
Exam(s) CT CHEST LUNG CANCER SCREEN EXAM: CT CHEST LUNG CANCER SCREEN CLINICAL HISTORY: [employer] SMOKER, F17.210 TECHNIQUE: Imaging Protocol: Axial computed tomography images with coronal and sagittal reformatted images were created and reviewed COMPARISON: CT CT CHEST LUNG CANCER SCREEN from 08/25/2020 FINDINGS: Tracheobronchial tree: Patent where visualized. Mediastinum and Marily: No dominant adenopathy or fluid collection. Pulmonary parenchyma: No consolidation or dominant measurable mass. Changes of paraseptal and centril obular emphysema greatest in the upper lobes. Minimal scattered areas of scarring. Lung Nodules: Stable right middle lobe nodule. Pleura: No effusion or pneumothorax. Heart: The heart is not dilated. coronary artery calcifications are seen. Aorta: Thoracic aorta non-dilated. Upper abdomen: Unremarkable. Bones: Within normal limits for age. Soft Tissues: Unremarkable. IMPRESSION: Stable right middle lobe nodule. Emphysematous changes. Lung RADS Cat 2 - Benign Appearance / Behavior: Nodules with a very low likelihood of becoming a clin ically active cancer due to size or lack of growth Lung-RADS 1.0 CATEGORIES: Category 0 - Prior chest CT exam(s) being located for comparison. Category 1 - Annual screening in 12 months. No nodules or definitely benign nodules. Category 2 - Annual screening in 12 months. Benign appearance. Nodules with low likelihood of becomin g active cancer. Category 3 - 6-month follow-up. Probably benign. Short-term follow-up suggested. Nodules with low lik elihood of becoming active cancer. Category 4A - 3-month follow-up and CT/PET if >8 mm in size. Suspicious finding. Findings which requi re additional testing. Category 4B - Findings which require additional testing and tissue sampling. Modifier S- Potentially clinically significant findings (non lung cancer) RADIATION DOSE DELIVERED: 89.06mGy.cm Total DLP 1.84mGy CTDIvol DATA REPOSITORY: All CT scans at this facility are submitted to the National Radiology Data Registry (NRDR) Dose Index Registry (DIR) with the [employer] (ACR). RADIATION OPTIMIZATION: All CT scans at this facility use at least one of these dose optimization te chniques: automated exposure control; mA and/or kV adjustment per patient size (includes targeted exa ms where dose is matched to clinical indication); or iterative reconstruction.
== END 2021-04-10 00:56 ==
PROVIDERS: PCP Family Medicine; Visit Provider Family Medicine
DX: Z12.2 Encounter for screening for malignant neoplasm of respiratory organs (principal); F17.210 Nicotine dependence, cigarettes, uncomplicated; R91.1 Solitary pulmonary nodule; J43.2 Centrilobular emphysema
CPT/HCPCS: 71271

== ENCOUNTER → 2021-09-01 15:12 | Outpatient (CLI) | payer MEDICARE, SELFPAY ==
--- NOTE | 2021-09-01 14:20 | DI.RAD_ITS ---
Exam(s) XR KNEE LT 3V AP,LAT,HERBERTH EXAM: XR KNEE LT 3V AP,LAT,HERBERTH CLINICAL HISTORY: LEFT KNEE PAIN--M25.562. TECHNIQUE: 2D digital imaging was performed. Three views. COMPARISON: No exams were available for comparison FINDINGS: BONES: No acute fracture is present. No bony destructive lesion is seen. JOINTS: Joint spaces are well maintained. No significant degenerative changes. The knee is normally aligned. A joint effusion is seen. SOFT TISSUE: Normal. IMPRESSION: Joint effusion. No bony abnormality is visible. DATA REPOSITORY: RADIATION DOSE DELIVERED:
== END ==
PROVIDERS: PCP Family Medicine; Visit Provider Nurse Practitioner Family
DX: M25.562 Pain in left knee (principal); M25.462 Effusion, left knee
CPT/HCPCS: 73562

== ENCOUNTER 2021-09-25 16:47 | Emergency (ER) | payer MEDICARE, SELFPAY ==
[2021-09-25 16:50] VITALS: BP 119/74; PULSE 70; RESP 16; TEMP 36.8; O2SAT 99
[2021-09-25 17:42] LABS: Abs Immature Grans 0.01 10^3/uL (0.0-0.06); Absolute Basophil Count 0.05 10^3/uL (0.0-0.2); Absolute Eosinophil Count 0.15 10^3/uL (0.0-0.7); Absolute Lymphocyte Count 1.52 10^3/uL (1.2-3.4); Absolute Monocyte Count 0.38 10^3/uL (0.1-0.8); Absolute Neutrophil Count 2.06 10^3/uL (1.2-6.7); Basophils % 1.2; Eosinophils % 3.6; HCT 39.9 % (40.0-50.0); HGB 13.7 g/dL (13.5-17.5); Immature Grans % 0.2; Lymphocytes % 36.5; MCH 30.6 pg (27.0-33.0); MCHC 34.3 % (32.0-36.0); MCV 89 fL (80-95); MPV 10.2 fL (8.0-11.0); Monocytes % 9.1; Neutrophils % 49.4; Platelet Count 178 10^3/uL (130-400); RBC 4.48 10^6/uL (4.36-5.78); RDW 13.5 % (11.8-14.1); RDW-SD 44.5 fL; WBC 4.17 10^3/uL (4.4-10.8)
[2021-09-25 17:57] LABS: ALT 25 U/L (16-63); AST 16 U/L (15-37); Albumin 3.7 g/dL (3.4-5.0); Alkaline Phosphatase 71 U/L (46-116); BUN 20 mg/dL (7-18); Bilirubin, Total 0.5 mg/dL (0.2-1.0); Calcium 8.9 mg/dL (8.5-10.1); Chloride 104 mmol/L (98-107); Glucose 97 mg/dL (74-106); Potassium 3.7 mmol/L (3.5-5.1); Sodium 139 mmol/L (136-145); Total Protein 7.2 g/dL (6.4-8.2)
[2021-09-25 18:11] LABS: D-Dimer 467 ng/mlFEU (<500)
[2021-09-25 18:17] VITALS: RESP 18
[2021-09-25 18:23] VITALS: BP 133/89; PULSE 55; RESP 14; TEMP 36; O2SAT 99
--- NOTE | 2021-09-25 18:32 | ED.GENADUL_ITS ---
Discharge Plan Disposition Patient Disposition: HOME Condition: Stable Discharge Details Clinical Impression: Effusion of knee, Leg swelling Primary Care Provider: Caro Paredes V ED Provider: Jami Lopez Home Meds and New Rx's Prescriptions: Continued ibuprofen 200 mg Tablet 600 mg PO Q6H PRN Discharge Instructions Additional Instructions: elevate your leg Wear knee as tolerated Follow-up for your MRI Follow-up for your ultrasound of your leg, call first thing in the morning to make sure it scheduled Please return with fever, chills, or should you have new or worsening complaints Referrals: Caro Paredes MD [Primary Care Provider] - Medical Decision Making Patient appears well Given hinged knee brace for symptomatic improvement Will follow up for ultrasound of his left lower extremity tomorrow D-dimer negative, not initiate anticoagulation Also scheduled for MRI, encouraged to follow-up with this Will use compression stockings Return precautions discussed and patient understanding Medical Records Medical records reviewed: Yes I reviewed the patient's medical records. Lab Data Lab results reviewed: Yes I reviewed the patient's lab results. HPI General Date/Time Provider Initiated Documentation: 09/25/21 17:05 . HPI Narrative: This 66-year-old gentleman presents for swelling in his left knee and having terrible leg. States has had ongoing pain in his left knee is actually scheduled for an MRI on . He denies any injuries. He denies history of coagulopathy. He denies any chest pain or shortness of breath. He denies any dizziness or weakness. He denies worsening pain in his left knee. He Related Data Home Medications Medication Instructions Recorded Confirmed ibuprofen 200 mg tablet 600 mg PO Q6H PRN 09/25/20 09/25/21 Allergies Allergy/AdvReac Type Severity Reaction Status Date / Time Iodinated Contrast Media Allergy Mild Hives Unverified 09/25/21 16:56 General Stated Complaint: Vascular PURA: 3 Review of Systems All systems reviewed & are unremarkable except as noted in HPI and below PFSH All Active Problems Effusion of knee (Acute) Leg swelling (Acute) Strangulated external hemorrhoids (Acute) Strangulated internal hemorrhoids (Acute) Internal thrombosed hemorrhoids (Acute 03/31/13) Excised. Smoker (Acute) Medical History (Updated 09/25/21 @ 18:34 by EUGENIO Young) Internal hemorrhoids with complication Smoker TIA (transient ischemic attack) Surgical History Colonoscopy - MAC (03/19/17) Hemorrhoidectomy (~01/17/18) Social History Smoking/Tobacco Use Status: Current every day Tobacco Type: cigarettes Smoking risk assessment performed?: Yes Alcohol Intake: former Drug use: Daily Substance use type: marijuana Details: no alcohol for 33 years Do you feel safe at home: Yes Do you feel safe in your relationship?: Yes Exam Const General: cooperative, comfortable and no acute distress Resp Effort & Inspection: normal respiratory effort Cardio Rate: regular rate Rhythm: regular rhythm Skin General skin exam: no rashes or lesions noted Neuro General: patient alert and patient oriented x3 Extrem Upper/lower leg/hip images: 1. Swelling and tenderness without erythema 1+Bilateral lower extremities 2. Course Vital Signs Vital signs: Vital Signs Temperature 36.8 C 09/25/21 16:50 Pulse 70 09/25/21 16:50 Respiratory Rate 16 09/25/21 16:50 Blood Pressure 119/74 09/25/21 16:50 Pulse Oximetry 99 09/25/21 16:50 Temperature 36.0 C L 09/25/21 18:23 Temperature Source Temporal Artery Scan 09/25/21 18:23 Pulse 55 L 09/25/21 18:23 Respiratory Rate 14 09/25/21 18:23 Respiratory Effort Non-Labored 09/25/21 18:17 Respiratory Depth Normal 09/25/21 18:17 Respiratory Pattern Normal 09/25/21 18:17 Blood Pressure 133/89 09/25/21 18:23 Blood Pressure Position Sitting 09/25/21 16:50 Pulse Oximetry 99 09/25/21 18:23 Oxygen Delivery Method Room Air 09/25/21 18:23 Oxygen Flow Rate 0 09/25/21 18:23 Pain Level 2 09/25/21 18:23 Comment 09/25/21 16:50 Lab/Test Results Lab/Test Results: Laboratory Tests Range/Units 09/25/21 09/25/21 09/25/21 17:29 17:29 17:29 WBC (4.4-10.8) 10^3/uL 4.17 L RBC (4.36-5.78) 10^6/uL 4.48 Hgb (13.5-17.5) g/dL 13.7 Hct (40.0-50.0) % 39.9 L MCV (80-95) fL 89 MCH (27.0-33.0) pg 30.6 MCHC (32.0-36.0) % 34.3 RDW (11.8-14.1) % 13.5 Plt Count (130-400) 10^3/uL 178 MPV (8.0-11.0) fL 10.2 Immature Gran % 0.2 Neutrophils % 49.4 Lymphocytes % 36.5 Monocytes % 9.1 Eosinophils % 3.6 Basophils % 1.2 Nucleated RBC % (0.0-0.3) % 0.0 Absolute Neutrophils (1.2-6.7) 10^3/uL 2.06 Absolute Lymphocytes (1.2-3.4) 10^3/uL 1.52 Absolute Monocytes (0.1-0.8) 10^3/uL 0.38 Absolute Eosinophils (0.0-0.7) 10^3/uL 0.15 Absolute Basophils (0.0-0.2) 10^3/uL 0.05 D-Dimer (<500) ng/mlFEU 467 Sodium (136-145) mmol/L 139 Potassium (3.5-5.1) mmol/L 3.7 Chloride (98-107) mmol/L 104 Carbon Dioxide (21.0-32.0) mmol/L 26.0 Anion Gap (3-11) mmol/L 9.0 BUN (7-18) mg/dL 20 H Creatinine (0.70-1.30) mg/dL 1.0 Estimated GFR/1.73 m2 (mL/min/1.73m2) >= 60.00 Glucose (74-106) mg/dL 97 Calcium (8.5-10.1) mg/dL 8.9 Total Bilirubin (0.2-1.0) mg/dL 0.5 AST (15-37) U/L 16 ALT (16-63) U/L 25 Alkaline Phosphatase (46-116) U/L 71 Total Protein (6.4-8.2) g/dL 7.2 Albumin (3.4-5.0) g/dL 3.7
--- NOTE | 2021-09-25 18:39 | NUR.NOTE ---
Nursing Note: Faxed to DI request for DVT LLE US swelling left leg for tomorrow and follow up in ED.
[2021-09-25 18:45] VITALS: BP 133/89; PULSE 55; RESP 14; TEMP 36; O2SAT 99
== END 2021-09-25 18:56 | disposition home or self-care (01) ==
PROVIDERS: Emergency Provider Physician Assistant; PCP Family Medicine
DX: M25.462 Effusion, left knee (principal)
CPT/HCPCS: 29505; 36415; 80053; 99283; 85025; 85379

== ENCOUNTER → 2021-09-26 09:30 | Outpatient (CLI) | payer MEDICARE, SELFPAY ==
--- NOTE | 2021-09-26 | DI.US_ITS ---
Exam(s) US LOWER EXTREMITY VENOUS LT EXAM: US LOWER EXTREMITY VENOUS LT CLINICAL HISTORY: SWELLING LEFT LEG R22.42, R/O DVT. TECHNIQUE: Lower extremity venous ultrasound performed using grayscale, color-flow, and spectral Do ppler analysis. COMPARISON: No exams were available for comparison FINDINGS: The common femoral, femoral and popliteal veins demonstrate normal compressibility, augmentation, and color Doppler. The posterior tibial veins are patent. No saphenous vein thrombosis or other superfi cial venous thrombosis is seen. No hematoma or Hunter's cyst is seen. IMPRESSION: Negative lower extremity ultrasound. No evidence of DVT. DATA REPOSITORY:
== END ==
PROVIDERS: PCP Family Medicine; Visit Provider Physician Assistant
DX: R22.42 Localized swelling, mass and lump, left lower limb (principal)
CPT/HCPCS: 93971

== ENCOUNTER → 2021-09-28 02:15 | Outpatient (CLI) | payer MEDICARE, SELFPAY ==
--- NOTE | 2021-09-28 13:45 | DI.MRI_ITS ---
Exam(s) MR LOWER JOINT LT WO EXAM: MR LOWER JOINT LT WO CLINICAL HISTORY: LT KNEE PAIN, M25.562, MCL TEAR. TECHNIQUE: Multiplanar multisequence MRI was performed. COMPARISON: CR XR KNEE LT 3V AP,LAT,HERBERTH from 09/01/2021 FINDINGS: BONES: Mild edema medial femoral condyle medial tibial plateau could represent mild bone contusions. Small degenerative cyst near the tibial spines. JOINTS: Articular cartilage is unremarkable. A moderate-sized joint effusion is present. TENDONS: Extensor mechanism: Unremarkable. Medial retinaculum: Unremarkable. Lateral retinaculum: Unremarkable. Popliteus: Unremarkable. MUSCLES: Unremarkable. MENISCI: The medial meniscus shows abnormal signal in the posterior horn and body extending to the in ferior articular surface.. The lateral meniscus shows mild intrasubstance degenerative change.. SOFT TISSUES: Unremarkable. LIGAMENTS: Anterior Cruciate: Edema near the tibial attachment but no visible focal tear. Posterior Cruciate: Unremarkable. Medial Collateral:Mild surrounding edema but no focal tear. Lateral Collateral: Unremarkable. IMPRESSION: Inferior surfacing tear of the posterior horn and body of the medial meniscus. Mild contusions of th e medial femoral condyle medial tibial plateau. Joint effusion. Edema around the anterior cruciate ligament and medial collateral ligament without visible focal tear. DATA REPOSITORY:
== END ==
PROVIDERS: PCP Family Medicine; Visit Provider Nurse Practitioner Family
DX: S83.242A Other tear of medial meniscus, current injury, left knee, initial encounter (principal); S80.02XA Contusion of left knee, initial encounter; R60.0 Localized edema; M25.462 Effusion, left knee; X58.XXXA Exposure to other specified factors, initial encounter
CPT/HCPCS: 73721

== ENCOUNTER → 2021-11-30 08:53 | Outpatient (BNVA) | payer MEDICARE, SELFPAY | PROVIDERS: PCP Family Medicine; Referring Provider Family Medicine; Visit Provider Student in an Organized Health Care Education/Training Program | DX: S83.242A Other tear of medial meniscus, current injury, left knee, initial encounter (principal); X58.XXXA Exposure to other specified factors, initial encounter; M23.92 Unspecified internal derangement of left knee | CPT/HCPCS: 20610; 99213; J1040 ==

== ENCOUNTER → 2022-01-11 09:57 | Outpatient (BNVA) | payer MEDICARE, SELFPAY | PROVIDERS: PCP Family Medicine; Referring Provider Family Medicine; Visit Provider Physician Assistant Surgical | DX: Z01.818 Encounter for other preprocedural examination (principal); X58.XXXA Exposure to other specified factors, initial encounter; S83.242A Other tear of medial meniscus, current injury, left knee, initial encounter ==

== ENCOUNTER 2022-01-17 08:58 | Day surgery (SDC) | payer MEDICARE, SELFPAY ==
[2022-01-17] VITALS (8 sets, daily range): BP systolic 89–163; BP diastolic 52–103; PULSE 47–61; RESP 9–16; TEMP 36–36.7; O2SAT 97–100; BMI 20.7
--- NOTE | 2022-01-17 08:11 | PDOC.DSDIS_ITS ---
Discharge Plan Disposition Patient Disposition: HOME Condition: Good Discharge Details Reason For Visit: Left knee - medial meniscus tear Attending Provider: Brendan Leal Primary Care Provider: Caro Paredes V Home Meds and New Rx's Prescriptions: New tramadol 50 mg tablet 50 mg PO Q6H PRN PRN (Reason: severe postoperative pain) Qty: 4 0RF Rx Instructions: Take one tablet up to every 4 hours as needed for severe pain acetaminophen 500 mg tablet 500 mg PO Q6H PRN (Reason: pain) Qty: 60 2RF ibuprofen 600 mg tablet 600 mg PO TID PRN (Reason: pain) Qty: 60 0RF Discontinued ibuprofen 200 mg Tablet 600 mg PO Q6H PRN Discharge Instructions Stand Alone Forms: [facility] Knee Arthroscopy Referrals: Brendan Leal MD [ [facility] STAFF PHYSICIAN] - Equipment/Supplies: Partial Weight Bearing Crutches Activity:: Elevate Remove Dressings/Wound Care:: 72 hours Shower/Bathe:: 72 hours Diet:: As Tolerated Discharge Orders Discharge Orders: Discharge Order (Routine); Ordered 01/17/22 Ordered By: Barbara Kiser
[2022-01-17] MEDS: Lactated Ringers 1,000 ML 80 ML IV (09:51)
--- NOTE | 2022-01-17 10:05 | W.ANESPRE ---
General Info Date of Service Date Performed: 01/17/22 Height: 5 ft 10.5 in Weight: 66.678 kg Body Mass Index (BMI): 20.7 Surgical Procedure: Operation Date: 01/17/22 11:10 Proposed Procedure Side Surgeon p Knee Arthroscopy Partial Medial Menisectomy Left Brendan Leal MD Meds Allergies and Home Medications Allergies Allergy/AdvReac Type Severity Reaction Status Date / Time Iodinated Contrast Media Allergy Mild Hives Verified 01/17/22 09:35 Home Medication Medication Instructions Recorded acetaminophen 500 mg tablet 500 mg PO Q6H PRN pain #60 tabs 01/17/22 ibuprofen 600 mg tablet 600 mg PO TID PRN pain #60 tabs 01/17/22 tramadol 50 mg tablet 50 mg PO Q6H PRN PRN severe 01/17/22 postoperative pain #4 tabs Current Visit Medications: Current Medications Generic Name Dose Route Start Last Admin Trade Name Freq PRN Reason Stop Dose Admin Acetaminophen 650 mg 01/17/22 08:09 Acetaminophen 325 Mg Tab PO Q4H PRN PRN Ringer's Solution 1,000 mls @ 80 mls/hr 01/17/22 06:00 01/17/22 09:51 IV 02/15/22 23:59 80 mls/hr INFUSION BRODERICK Administration Cefazolin Sodium/Dextrose 2 gm in 50 mls @ 100 mls/hr 01/17/22 06:00 Ancef Duplex IVPB 02/15/22 23:59 PREOP BRODERICK IV Miscellaneous Supplies 1 each 01/17/22 06:00 Iv Access IV 02/15/22 23:59 DIRECTED BRODERICK Sodium Chloride 0 ml 01/17/22 06:00 Normal Saline Flush 10 Ml Syr IV 02/15/22 23:59 PRN PRN Sodium Chloride 0 ml 01/17/22 06:00 Normal Saline 10 Ml Vial IJ 02/15/22 23:59 DIRECTED PRN Sterile Water 0 ml 01/17/22 06:00 Water,Injection,Sterile 10 Ml Vial IJ 02/15/22 23:59 DIRECTED PRN Tramadol HCl 50 mg 01/17/22 08:09 Tramadol 50 Mg Tab PO Q6H PRN PRN PFSH Active Problems Active Problems: Problem Status Onset Code Internal thrombosed hemorrhoids 03/31/13 K64.5 Smoker F17.200 Strangulated internal hemorrhoids K64.8 Strangulated external hemorrhoids K64.4 Hyperlipidemia E78.5 Tear of medial meniscus of left knee S83.242A Medical History Medical History Internal hemorrhoids with complication Smoker TIA (transient ischemic attack) 2007-Per pt. no residual effects. Per pt. did not have to f/u with neurology Medical History Comments:: 01/17/22 : pt smoked a cigarette 08:00. Smokers cough, 01/16/22 smoked marijuana Surgical History Surgical History Colonoscopy - MAC (03/19/17) Hemorrhoidectomy (~01/17/18) History of cervical discectomy ANTERIOR CERVICAL DISCECTOMY AND FUSION Tobacco Smoking/Tobacco Use Status: Current every day Tobacco Type: cigarettes Alcohol Alcohol Intake: former Substance Use Substance use: Daily Substance use type: marijuana Details: no alcohol for 33 years Vital Signs and Lab Results Vital Signs Most Recent Vital Signs in EMR: Most Recent Vital Signs Temp Pulse Resp BP Pulse Ox 36.7 C 61 16 147/90 H 100 01/17/22 09:25 01/17/22 09:25 01/17/22 09:25 01/17/22 09:25 01/17/22 09:25 Lab Results Blood Type / Crossmatch: No Data to Display Complete Blood Count: No Data to Display Complete Metabolic Panel: No Data to Display Liver Function Panel: No Data to Display Coagulation Panel: No Data to Display Cardiac Panel: No Data to Display Arterial Blood Gas: No Data to Display Venous Blood Gas: No Data to Display Pancreas Panel: No Data to Display Thyroid Panel: No Data to Display Infectious Disease: No Data to Display Blood Cultures: No Data to Display Toxicology Panel: No Data to Display Anesthesia Assessment and Plan Anesthesia History Personal History: No History of Anesthesia Complications Family History: No Family History of Anesthesia Complications Exercise Tolerance Exercise Tolerance: Metabolic Equivalents>4 Pertinent Negatives Pertinent Negatives: No Symptoms of GERD, No Major Cardiovascular Symptoms or Complaints and No Major Pulmonary Symptoms or Complaints Cardiac & Pulmonary Exam Cardiac Exam: Normal S1/S2 Heart Sounds Pulmonary Exam: Clear Bilateral Breath Sounds Implantable Cardiac Device Does patient have a Pacemaker or an ICD?: No Airway Exam Known Difficult Airway: No Mallampati Class: 2 Mouth Opening: Normal (> 3cm) Thyromental Distance: Greater than 3 cm Neck Range of Motion: Full ROM Neck Circumference: Normal Teeth Condition: Normal Dentition ASA Classification ASA Score: ASA 2 Emergency Case?: No NPO Status NPO Status: NPO Clears >2 hours, Solids >8 hours Anesthesia Plan Resuscitation Status: Full Code Anesthesia Technique: General Anesthesia Airway Planned: LMA Monitors Used: Standard Monitors
[2022-01-17] MEDS: ceFAZolin 2 GM/50 ML BAG IVPB (10:53)
[2022-01-17] MEDS: Bupivacaine 0.5% Pres-Free 30 ML VIAL (11:37)
--- NOTE | 2022-01-17 12:34 | W.ANESPOSTOP ---
Postoperative Evaluation Date, Time and Location Date Performed: 01/17/22 Time Performed: 12:34 Patient Location: Day Surgery Unit Vital Signs Most Recent Imported Vital Signs: Most Recent Vital Signs Temp Pulse Resp BP Pulse Ox 36.5 C 57 L 15 138/74 97 01/17/22 12:23 01/17/22 12:23 01/17/22 12:23 01/17/22 12:23 01/17/22 12:23 Pain Score Most Recent Pain Score: Most Recent Pain Score Pain Level 0 01/17/22 12:23 Assessment Mental Status: Awake (Alert & Oriented to Patient Baseline) Airway and Respiratory Function: Patent airway with normal (patient baseline) respiratory exam Cardiovascular Function: Hemodynamically Stable Hydration Status: Adequately Hydrated Nausea & Vomiting: No Nausea or Vomiting Pain: Pt. Denies Any Pain Peripheral Nerve Block: Patient did not receive a nerve block
--- NOTE | 2022-01-18 06:53 | ROE_ITS ---
Date of service: 01/17/22 Time of Service: 12:30 Operative Note Operative Note DATE OF PROCEDURE: 01/17/22 PRE-OP DIAGNOSIS: Left Knee Medial Meniscus Tear POST-OP DIAGNOSIS: same PROCEDURE: Left Knee Arthroscopic Partial Medial Menisectomy, Lateral Tibial Chondroplasty SURGEON: Brendan Leal ANESTHESIA TYPE: General LMA/ETT Refer to Anesthesia Record ESTIMATED BLOOD LOSS: 0 PATHOLOGY: none sent COMPLICATIONS: None Patient was transported to: PACU Patient's condition: stable Indications: I have seen Krish in clinic for symptoms of a meniscus tear. This was confirmed based on MRI and exam findings. Nonoperative measures were exhausted but disability and pain persisted. I discussed knee arthroscopy with meniscal intervention with the patient. I reviewed the risks of the procedure to include, but not limited to, bleeding, infection, pain, stiffness, damage to nerves or vessels, recurrence, blood clot. Despite these risks, the patient elected to proceed. Findings: A diagnostic arthroscopy was performed with the following findings: Suprapatellar Pouch: Moderate inflammation, No loose bodies Medial Compartment: Complex medial meniscal tear, Intact meniscal root, Some diffuse Grade I chondromalacia and a few areas of Grade II, No loose bodies Notch: ACL and PCL were intact Lateral Compartment: No meniscal tear, Intact meniscal root, Deep fissuring of the central tibia - Grade III, No loose bodies Patellofemoral Compartment: No significant chondromalacia, No apparent patellar maltracking Procedure Description: Krish was greeted in the preoperative holding area where the correct side was identified and marked. The consent was reviewed with the patient and signed. The history and physical was updated. All questions were answered. He was taken back to the operating room. The patient was placed into the supine position on the operating room table. A nonsterile tourniquet was placed high onto the leg but not used. All bony prominences were well padded. Prophylactic antibiotics in the form of Cefazolin were administered. The left leg was then prepped with Chloraprep and draped in a standard fashion with stockinette and extremity drape. A timeout to confirm correct identity, side and site, procedure, allergies, anesthesia, and medical concerns was performed. The leg was placed into a pneumatic leg sexton, [id number]. A standard lateral portal was made at the lateral border of the patella tendon in line with the inferior pole of the patella, soft spot. The skin and deep tissue was incised sharply and the blunt trochar was inserted atraumatically. A diagnostic arthroscopy was performed and the findings are listed above. The suprapatellar pouch had moderate inflammatory change. The patellofemoral articulation showed no articular damage as well as good tracking. The lateral gutter had no loose bodies and the medial gutter had no loose bodies. The knee was brought into some valgus stress in extension to open the medial compartment. A medial portal was made, localized by a spinal needle. The portal was created with an #11 blade through skin and capsule under direct visualization avoiding any meniscal injury. A probe was then inserted into the medial compartment. The medial comp artment was fully inspected. The chondral surface of the tibia showed some diffuse Grade I chondromalacia and the surface of the femur showed the same with some small, focal areas of more significant thinning, Grade II. The medial meniscus had a complex tear with two loose fragments - one displaced into the notch and one into the medial gutter. There was also a horizontal component with the remnant posterior meniscus. After evaluation, the meniscus was debrided down to a stable base using a series of biters and arthroscopic la. It was probed afterwards to confirm that the tear had been removed and the meniscus was stable. The notch was then inspected which showed an intact ACL and an intact PCL. The leg was then brought into a figure of 4 position. The lateral compartment was fully inspected with the arthroscope and a probe. The chondral surface of the lateral femur showed no significant chondromalacia. The chondral surface of the lateral tibia showed deep fissuring within the central portion of the lateral tibia. The lateral meniscus had no meniscal tear. Cartilage surface of the tibia was debrided of any flaps and loose portions of the fissures. The arthroscope was brought back into the suprapatellar pouch and the leg was in full extension. The knee was thoroughly irrigated with the arthroscopic fluid on high flow and pressure. Inflow was stopped and excess fluid was removed. The wounds were closed with 4-0 Nylon. They were dressed with Xeroform, 4x4 gauze, ABD pad, Kerlix and an KELLY wrap. A cryo-cuff was applied. The patient tolerated the procedure well and was returned to the Same Day Surgery area in a stable condition suffering no known complication.
== END 2022-01-17 13:48 | disposition home or self-care (01) ==
PROVIDERS: PCP Family Medicine; Visit Provider Student in an Organized Health Care Education/Training Program
PROC: (CPT 29870; principal; 2022-01-17 11:00)
DX: M23.232 Derangement of other medial meniscus due to old tear or injury, left knee (principal); M94.262 Chondromalacia, left knee; F17.210 Nicotine dependence, cigarettes, uncomplicated
CPT/HCPCS: 29881; J0131; J0690; J1100; J1885; J2405; J3010

== ENCOUNTER → 2022-01-29 09:48 | Outpatient (BNVA) | payer MEDICARE, SELFPAY | PROVIDERS: PCP Family Medicine; Referring Provider Family Medicine; Visit Provider Student in an Organized Health Care Education/Training Program | DX: S83.242D Other tear of medial meniscus, current injury, left knee, subsequent encounter (principal); X58.XXXD Exposure to other specified factors, subsequent encounter ==

== ENCOUNTER → 2022-02-26 10:41 | Outpatient (BNVA) | payer MEDICARE, SELFPAY | PROVIDERS: PCP Family Medicine; Referring Provider Family Medicine; Visit Provider Student in an Organized Health Care Education/Training Program | DX: S83.242D Other tear of medial meniscus, current injury, left knee, subsequent encounter (principal); X58.XXXD Exposure to other specified factors, subsequent encounter ==

== ENCOUNTER → 2022-03-19 10:40 | Outpatient (BNVA) | payer MEDICARE, SELFPAY | PROVIDERS: PCP Family Medicine; Referring Provider Family Medicine; Visit Provider Physician Assistant | DX: S83.242D Other tear of medial meniscus, current injury, left knee, subsequent encounter (principal); X58.XXXD Exposure to other specified factors, subsequent encounter ==

== ENCOUNTER 2022-05-30 09:41 | Outpatient (REF) | payer MEDICARE, SELFPAY ==
[2022-05-30 16:18] LABS: ALT 35 U/L (16-63); AST 25 U/L (15-37); Alkaline Phosphatase 99 U/L (46-116); Bilirubin, Direct 0.1 mg/dL (0.0-0.2); Bilirubin, Total 0.7 mg/dL (0.2-1.0); Cholesterol 147 mg/dL (<200); Total Protein 7.9 g/dL (6.4-8.2); Triglyceride 55 mg/dL (<150)
[2022-05-30 16:41] LABS: Calculated LDL 97 mg/dL (<100); HDL Cholesterol 39 mg/dL (40-60)
[2022-05-30 16:55] LABS: Creatine Kinase 91 U/L (39-308)
== END 2022-05-30 09:42 | disposition home or self-care (01) ==
LOC: NCHCN 09:41
PROVIDERS: PCP Family Medicine; Visit Provider Family Medicine
DX: E78.5 Hyperlipidemia, unspecified (principal)
CPT/HCPCS: 80061; 80076; 82550

== ENCOUNTER → 2023-04-11 01:30 | Outpatient (CLI) | payer MEDICARE, SELFPAY ==
--- NOTE | 2023-04-11 | DI.CTLCSR_ITS ---
Exam(s) CT CHEST LUNG CANCER SCREEN EXAM: CT CHEST LUNG CANCER SCREEN CLINICAL HISTORY: SCREENING FOR LUNG CA,CURRENT SMOKER, F17.210 TECHNIQUE: Imaging Protocol: Axial computed tomography images with coronal and sagittal reformatted images were created and reviewed COMPARISON: CT CT CHEST LUNG CANCER SCREEN from 08/25/[address] CHEST LUNG CANCER SCREEN from 04/10/2021 FINDINGS: Tracheobronchial tree: Patent where visualized. Pulmonary parenchyma: Moderately severe centrilobular pulmonary emphysema. No architectural distorti on. Lung Nodules: There is a stable 6 mm nodule in the anterior aspect of the right middle lobe (series 3 , image 519). There are no new pulmonary nodules. Mediastinum and Marily: No dominant adenopathy or fluid collection. The esophagus is unremarkable. Thyroid gland: Unremarkable. Lymph nodes: Unremarkable. Pleura: No effusion or pneumothorax. Heart: The heart is not dilated. There are coronary artery calcifications and/or stents present. No pericardial effusion. Aorta: Thoracic aorta non-dilated.Atherosclerosis is present. Upper abdomen: Unremarkable. Soft Tissues: Unremarkable. Bones: Within normal limits for the patient's age. IMPRESSION: Stable right middle lobe pulmonary nodule. Lung RADS Cat 2 - Benign Appearance / Behavior: Nodules with a very low likelihood of becoming a clin ically active cancer due to size or lack of growth Lung-RADS 1.0 CATEGORIES: Category 0 - Prior chest CT exam(s) being located for comparison. Category 1 - Annual screening in 12 months. No nodules or definitely benign nodules. Category 2 - Annual screening in 12 months. Benign appearance. Nodules with low likelihood of becomin g active cancer. Category 3 - 6-month follow-up. Probably benign. Short-term follow-up suggested. Nodules with low lik elihood of becoming active cancer. Category 4A - 3-month follow-up and CT/PET if >8 mm in size. Suspicious finding. Findings which requi re additional testing. Category 4B - Findings which require additional testing and tissue sampling. Suspicious finding. Category 4X - Category 3 or 4 nodules with additional features or imaging findings that increases the suspicion of malignancy. Modifier S- Potentially clinically significant finding. (Non lung cancer) RADIATION DOSE DELIVERED: Total DLP Total DLP DATA REPOSITORY: All CT scans at this facility are submitted to the National Radiology Data Registry (NRDR) Dose Index Registry (DIR) with the [employer] ([employer]). RADIATION OPTIMIZATION: All CT scans at this facility use at least one of these dose optimization te chniques: automated exposure control; mA and/or kV adjustment per patient size (includes targeted exa ms where dose is matched to clinical indication); or iterative reconstruction.
== END ==
PROVIDERS: PCP Family Medicine; Visit Provider Family Medicine
DX: F17.210 Nicotine dependence, cigarettes, uncomplicated (principal); Z12.2 Encounter for screening for malignant neoplasm of respiratory organs; R91.1 Solitary pulmonary nodule
CPT/HCPCS: 71271

== ENCOUNTER 2023-08-16 11:33 | Outpatient (REF) | payer MEDICARE, SELFPAY ==
[2023-08-16 14:28] LABS: AST 26 U/L (15-37); Calculated LDL 84 mg/dL (<100); Cholesterol 139 mg/dL (<200); HDL Cholesterol 44 mg/dL (40-60); Triglyceride 56 mg/dL (<150)
[2023-08-16 22:53] LABS: PSA, Screening 3.1 ng/mL (<=6.5)
== END 2023-08-16 11:34 | disposition home or self-care (01) ==
LOC: NCHCN 11:33
PROVIDERS: PCP Family Medicine; Visit Provider Family Medicine
DX: E78.5 Hyperlipidemia, unspecified (principal); Z00.00 Encounter for general adult medical examination without abnormal findings
CPT/HCPCS: 80061; 84153; 84450

== ENCOUNTER 2024-04-14 16:23 | Outpatient (REF) | payer MEDICARE, SELFPAY ==
[2024-04-14 16:59] LABS: Abs Immature Grans 0.01 10^3/uL (0.0-0.06); Absolute Basophil Count 0.06 10^3/uL (0.0-0.2); Absolute Eosinophil Count 0.04 10^3/uL (0.0-0.7); Absolute Lymphocyte Count 1.14 10^3/uL (1.2-3.4); Absolute Monocyte Count 0.41 10^3/uL (0.1-0.8); Absolute Neutrophil Count 2.04 10^3/uL (1.2-6.7); Basophils % 1.6 %; Eosinophils % 1.1 %; HCT 42.8 % (40.0-50.0); HGB 14.4 g/dL (13.5-17.5); Immature Grans % 0.3 %; Lymphocytes % 30.8 %; MCH 30.6 pg (27.0-33.0); MCHC 33.6 % (32.0-36.0); MCV 91 fL (80-95); MPV 10.8 fL (8.0-11.0); Monocytes % 11.1 %; Neutrophils % 55.1 %; Platelet Count 171 10^3/uL (130-400); RDW 13.8 % (11.8-14.1); RDW-SD 46.7 fL
[2024-04-14 17:05] LABS: ALT 30 U/L (16-63); AST 22 U/L (15-37); Alkaline Phosphatase 90 U/L (46-116); Anion Gap 9.2 mmol/L (3-11); BUN 20 mg/dL (7-18); Bilirubin, Total 0.65 mg/dL (0.2-1.0); CO2 26.8 mmol/L (21.0-32.0); Calcium 9.3 mg/dL (8.5-10.1); Chloride 108 mmol/L (98-107); Estimated GFR 80.97 (mL/min/1.73m2); Glucose 84 mg/dL (74-106); Potassium 4.2 mmol/L (3.5-5.1); Sodium 144 mmol/L (136-145); Total Protein 7.5 g/dL (6.4-8.2)
[2024-04-14 17:07] LABS: C-Reactive Protein < 0.50 mg/dL (<or=0.5); ESR 14 mm/hr (0-20)
[2024-04-16 10:44] LABS: IgA 286 mg/dL (85-499); Interpretation (See Note); Tissue Transglutaminase IgA <4.0 CU (<20.0)
== END 2024-04-14 16:24 | disposition home or self-care (01) ==
LOC: NCHCN 16:23
PROVIDERS: PCP Family Medicine; Visit Provider Family Medicine
DX: R19.7 Diarrhea, unspecified (principal)
CPT/HCPCS: 80053; 82784; 83516; 85652; 85025; 86140

== ENCOUNTER 2024-04-20 13:56 | Outpatient (REF) | payer MEDICARE, SELFPAY ==
[2024-04-21 12:06] LABS: Campylobacter PCR Negative (Negative); Salmonella PCR Negative (Negative); Shiga Toxin PCR Negative (Negative); Shigella/Enteroinvasive Ecoli Negative (Negative)
[2024-04-26 01:28] LABS: Lactoferrin, Qt, Stool 23.98 mcg/mL (<7.25)
== END 2024-04-20 13:57 | disposition home or self-care (01) ==
LOC: NCHCN 13:56
PROVIDERS: PCP Family Medicine; Visit Provider Family Medicine
DX: R10.9 Unspecified abdominal pain (principal)
CPT/HCPCS: 83631; 87505; 87177

== ENCOUNTER 2024-04-29 15:21 | Outpatient (REF) | payer MEDICARE, SELFPAY ==
--- OUTSIDE RECORDS SUMMARY | 2024-04-29 15:24 | XMS_ITS | Encounter Summary ---
[place] [address] Care Team Providers Care Bait Man Name Role Phone Caro Paredes MD Primary Care Provider [phone] Reason for Referral * Occupational Therapy (Routine) - Closed Specialty Diagnoses / Procedures Referred By Contsusanna t Referred To Contact Physical Therapy / Occupational Therapy Diagnoses Encounter for work capability assessment Gerardo Gutierrez MD [facility] [place] [address] [place] [address] [facility] [place] [address] Referral ID Status Reason Start Date Expiration Date V isits Requested Visits Authorized [id number] Closed Other 09/21/2015 09/20/2016 1 1 Reason for Visit * Reason Onset Date Comments Employment Physical 09/21/2015 discussion/p david re conditioning for work reintegration Encounter Details Date Type Department Care Team (Late st Contact Info) Description 09/21/2015 Tele[place] [phone] Subha Ortiz, RN Employment Physical (discussion/planning re conditioning for work reintegration) Social History Tobacco Use Types Packs/Day Years Used Date Smoking Tobacco: Every Day Smokeless Tobacco: Never Alcohol Use Standard Drinks/Week Comments No 0 (1 standard drink = 0.6 oz pur e alcohol) Sex and Gender Information Value Date Recorded Sex Assigned at Not on file Gender Identity Not on file Sexual Orientation Not on file documented as of this encounter Miscellaneous Notes * Telephone Encounter - Subha Ortiz RN - 09/21/2015 10:59 AM EDT Received call from pt reporting that he had had his postop Xray yesterday at [facility] as requested. Advised pt that I had received report that I was awaiting the e-transfer of the imaging and then I would review it with Dr Franklin and return call so we could facilitate the conditioning plans. Reviewed Xray with Dr Franklin in Dr Gutierrez's immediate absence; Post op Xrays looked good. Dr Isabelsauthorized work conditioning to mod-heavy work capsisty, progressing as tolerated by Pt. Work conditioning order placed; faxed to [facility] requesting conditioning 1-3 X per wk as able by Pt and repeat WRAP 10/04 or 10/04 With report faxed to [facility] to facilitate review with Dr Gutierrez upon his return and or at appt 10/10. Requested pt and Max[facility] Leo[facility] scheduling staff to call [facility] nursing office if they would be unable to perofrm the wrap so we could do one here 10/[address] Bunch appt[address] tenatively have arraged WRAP with Cherie 10/10 immediately following pt's appt with Dr Gutierrez; will cancel if able to get it locally the previousl week. Pt advised of the above plan. Pt understands to reach out to schedule conditioning. Pt advised to keep us in the loop as to how he is doing and his preparedness to RTW. If pt work capasity is such that he cld be cleared by 10/04; ad vised pt that we could connect with Dr Gutierrez to secure the clearancebetween 10/02- 10/04. If that is ot the case advised pt that we Would need to extend his OOW status from 10/04 until after evaluated 10/10. Will await communication form pt and/or local PT at the end of this month. documented in this encounter Plan of Treatment Scheduled Referrals Name Type Priority Associated Diagnoses Order Schedule Referral to Occupational Therapy Outpatient Referral Routine Encounter for work capability assessment Ordered: 09/21/2015 documented as of this encounter Visit Diagnoses Diagnosis Encounter for work capability assessment documented in this encounter Care Teams Bait Man Relationship Specialty Start Date End Date Caro Paredes MD [address] [place] [address] PCP - General 02/28/10 documented as of this encounter
--- OUTSIDE RECORDS SUMMARY | 2024-04-29 15:24 | XMS_ITS | Encounter Summary ---
Author Organization [facility] Address [facility] [place] [address] Care Team Providers Care Automatic Machine Attendant Name Role Phone Becky Paredes MD Primary Care Provider [phone] Reason for Visit * Auth/Cert Specialty Diagnoses / Procedures Referred By Contac t Referred To Contact Diagnoses CERVICAL SPONDYLOSIS Procedures PRO ARTHRODESIS, ANT INTERBODY,DECOMPRESSION; CERVICAL BELOW C2 PRO CERV SPINE FUSN, ANTER, BELOW C2 PRO ALLOGRAFT FOR SPINE SURGERY ONLY STRUCTURAL PRO AUTOGRAFT SPINE SURGERY BICORT/TRICORT SEP INCISION ARTHRODESIS, ANT INTERBODY,DECOMPRESSION; CERVICAL BELOW C2 ANT. CX. FUSION INCLUD. MIN. DISCECTOMY; BELOW C2 ALLOGRAFT FOR SPINE SURGERY ONLY; STRUCTUAL AUTOGRAFT FOR SPINE SURGERY ONLY; STRUCTUAL, BI\TRICORTICAL MODIFIER GLOBUS PROVIDENCE MODIFIER, GLOBUS FORGE Referral ID Status Reason Start Date Expiration Date Visits Re quested Visits Authorized [id number] 1 1 Encounter Details Date Type Department Care Team (Late st Contact Info) Description 08/02/2015 7:30 AM EDT - 08/02/2015 10:58 AM EDT Surgery [place] [address] Gerardo Gutierrez MD [facility] [place] [address] [place] [address] ARTHRODESIS, ANT INTERBODY,DECOMPRESSIO N; CERVICAL BELOW C2 (WRVU 25) Social History Tobacco Use Types Packs/Day Years Used Date Smoking Tobacco: Every Day Smokeless Tobacco: Never Alcohol Use Standard Drinks/Week Comments No 0 (1 standard drink = 0.6 oz pur e alcohol) Sex and Gender Information Value Date Recorded Sex Assigned at Not on file Gender Identity Not on file Sexual Orientation Not on file documented as of this encounter Last Filed Vital Signs Vital Sign Reading Time Taken Comments Blood Pressure 161/96 08/02/2015 10:45 AM EDT Pulse 55 08/02/2015 10:45 AM EDT Temperature 36.8 ??C (98.2 ??F) 08/02/2015 9:37 AM ED T Respiratory Rate 14 08/02/2015 10:45 AM EDT Oxygen Saturation 96% 08/02/2015 10:45 AM EDT Inhaled Oxygen Concentration - - Weight 61.2 kg (135 lb) 08/02/2015 6:23 AM EDT Height - - Body Mass Index 19.37 08/02/2015 6:23 AM EDT documented in this encounter Discharge Summaries * Edu Romero PA - 08/03/2015 8:58 AM EDT Inpatient - Discharge Summary Patient Name: Krish Dumont Patient Age: 60 y.o. Birthdate: 1955 Admit date: 08/02/2015 Discharge date and time: 08/03/2015 Attending Physician: Gerardo Gutierrez MD Discharge Diagnoses (Hospital Problems): Active Hospital Problems Diagnosis ??? Spinal stenosis Resolved Hospital Problems Diagnosis Date Resolved No resolved problems to display. Operations/Major Procedures: 08/02/15 s/p C4-5 ACDF, Dr Gutierrez History of Presentation: Krish Dumont is a 59-year-old ambidextrous man who three years ago was swimming and had an episode of neck extension.?? This resulted in sudden paresthesias into both arms; the thumb, index, and middle finger of both hands; and those paresthesias have persisted since that time, neither improvingnor worsening.?? The pain and tingling is constant.?? His walking is without difficulty.?? He has no bowel or bladder dysfunction.?? Hospital Course: Patient was admitted 08/02/15 and was brought to the OR for uncomplicated C4-[address] Gutierrez. Post-op course was uncomplicated. She is now being d/c'd to home in stable condition. Important Studies and Lab Data: Lab Results Component Value Date/Time WBC 6.7 08/03/2015 05:50 AM HEMOGLOBIN 14.7 08/03/2015 05:50 AM HEMATOCRIT 43.2 08/03/2015 05:50 AM PLATELETS 159 08/03/2015 05:50 AM SODIUM 139 08/03/2015 05:50 AM POTASSIUM 4.4 08/03/2015 05:50 AM CHLORIDE 105 08/03/2015 05:50 AM CO2 25 08/03/2015 05:50 AM BUN 15 08/03/2015 05:50 AM CREATININE 0.82 08/03/2015 05:50 AM Pending Studies and Lab Data: None Discharge Conditions/Prognosis: Stable Discharge to: Home Discharge Medications: Your Medications New Medications Dose Details acetaminophen 325 mg Tab Commonly known as: TYLENOL Take 2 tablets by mouth every 4 hours as needed for Pain (mild pain). 650 mg Quantity: 30 tablet Refills: 1 cyclobenzaprine 10 mg Tab Commonly known as: FLEXERIL Take 1 tablet by mouth 3 times daily as needed for Muscle spasms. 10 mg Quantity: 20 tablet Refills: 0 nicotine 14 mg/24 hr Pt24 Commonly known as: NICODERM CQ Place 1 patch onto the skin daily. 1 patch Quantity: 28 patch Refills: 0 oxyCODONE 5 mg Tab Commonly known as: ROXICODONE Take 1 tablet by mouth every 4 hours as needed for Pain. 5 mg Quantity: 30 tablet Refills: 0 senna-docusate 8.6-50 mg Tab Commonly known as: PERICOLACE Take 2 tablets by mouth 2 times daily as needed for Constipation. 2 tablet Quantity: 60 tablet Refills: 11 STOPPED Medications naproxen sodium 220 mg Tab Commonly known as: ANAPROX Updated Allergies/ADRs: Allergies Allergen Reactions ??? Iodine And Iodide Containing Products CIS - Rash Follow-up Recommendations for Providers: See Below Instructions Given to Patient at Discharge: Patient Instructions Primary Reason for Hospitalization: s/p ACDF Condition at Discharge: Stable Discharge Instructions for Spinal Surgery CALL YOUR PHYSICIAN IF: 1. You have a fever greater than 101 degrees Farenheit within one month of your surgery. 2. You have worsening back/neck pain, not controlled with your pain medication. 3. You begin having new trouble moving your arms or legs. 4. You develop pain, burning, urgency/frequency with urination. 5. You develop redness, swelling, or milky or watery drainage from your wound. 6. You have increasing trouble swallowing or breathing after anterior neck surgery. Prescriptions*: The following have been prescribed to control your discomfort after surgery: (X) Narcotic pain medications, such as Percocet, Vicodin, oxycodone or Dilaudid 1. DO NOT use alcohol, drive, or operate heavy or complex machinery while taking these medications. ??? Narcotic pain medications may cause constipation. ??? Stool softeners, such as Colace; mild laxatives, such as Milk of Magnesia, Sennakot, or Ducolaxtabs; or enemas may be used if needed and are bdfy-ksu-beczgiy (OTC) medications available at most local pharmacies. Prunes or prune juice, taken daily, can also be helpful for constipation treatmentor prevention and are available at most [email or web address]. Driving Restrictions*: - [X] No driving for the first two weeks after surgery. Activities: ??? Discuss return to work or school with your surgeon. ? No heavy lifting. You may lift what is comfortable to lift with one arm. Nothing greater than 3-5pounds until re-evaluated by your physician. ? Avoid pushing and/or pulling objects. No washing garzon, windows, or floors, and no vacuuming or lifting heavy laundry or grocery bags. ? No shoveling, mowing lawns, climbing onto roofs or up ladders and no painting. ? Avoid prolonged periods of straight-back sitting (e.g., no more than 20 minutes at a time), without changing your position. ? No bending, twisting, or lifting. It is better to bend at the knees. ??? You will be advised at your follow-up appointment when you may resume these activities. Diet: ??? Eat a well-balanced diet. Fresh fruits, vegetables and fiber-containing foods are recommended. This will assist in wound healing. Recommendations: ??? Take it easy for two weeks. Remember, If it hurts, don't do it. ??? Take several slow, short walks each day for the first two weeks, and gradually increase your distance. We recommend at least 4 times a day. ??? You can go up and down stairs, but take your time and make sure your feet are securely placed on each step. ??? You can resume sexual activity over the next several weeks. You should be positioned on your back or side. ??? Ankle pump exercises (like pressing and releasing the gas pedal) should be done several times each day until you are back to your normal activities. Wound Care: ??? After 4 days, you can shower per usual routine and wash the incision area gently. Pat incision dry with a clean, dry towel. ? Do not submerge the wound under water (avoid spas, pools and bathtubs) until it is fully healed. ? Do not use creams, oils, or ointments on the wound. ??? Keep the wound open to air if it is not draining. ??? See follow-up appointments below for removal of sutures/michelle. Comfort: ??? Some incision soreness can be expected. ??? Take your pain medication as needed and prescribed. ??? Taper use of pain medication as pain lessens. ??? After neck surgery, your throat may be a little sore for the first 2-3 days. This is normal. ??? You may have some voice hoarseness after neck surgery. This should improve over several days. Follow-up Appointments: (X) Please follow-up in Neurosurgery Clinic with: (X)Dr. Gutierrez in 4-6 weeks. (X) Radiology with f/u appointment: (X)xray: (X)cervical (X)AP/LAT Please call the Neurosurgery Clinic if you have not received a scheduled appointment in the mail within 2-3 weeks. (X)You have absorbable sutures. They will absorb on their own. Steri strips will flake-off gradually. IMPORTANT PHONE NUMBERS: Saturday - Saturday (8AM to 5PM): ?? Outpatient nurse - Tiffanie Franco RN: ?? Outpatient nurse practitioner - Keyla Sawyer, HAND THERMAL CUTTER: ?? Inpatient associate providers - Edu Romero PA-C, Edu Dahl PA-C, Becky Payton HAND THERMAL CUTTER: ?? Neurosurgeons - Dr. Gutierrez, Dr. Williamson, Dr. Swan, Dr. Franklin, and Dr. Trimble: ?? Pediatric Neurosurgeon - Dr. Willard After office hours (5PM to 8AM) and on weekends you can reach neurosurgery by calling the hospital belt back operator at and ask for the Neurosurgery resident on-call Neurology/Neurosugery (5W) and Neuro Special Care Unit (NSCU): CC: BECKY PAREDES MD Future Appointments and Orders Future Appointments Provider Department Dept Phone 09/19/2015 11:30 AM Gerardo Gutierrez MD [facility] [phone] Future Orders Complete By Expires XR Cervical Spine 2 Or 3 Views (NR GENERIC) [11339 Custom] 08/03/2015 08/02/2016 Process Instructions: Scheduling Instructions: Questions: Where will study be performed?: [facility] Portable exam?: Reason for exam and clinical history: s/p ACDF Other pertinent information: Stat read required?: Date of injury if applicable: Requested Time: Electronically Signed By: EUGENIO JIMENEZ 08/03/2015 documented in this encounter Discharge Instructions * Patient Instructions* Edu Romero PA - 08/03/2015 8:54 AM EDT Primary Reason for Hospitalization: s/p ACDF Condition at Discharge: Stable Discharge Instructions for Spinal Surgery CALL YOUR PHYSICIAN IF: 1. You have a fever greater than 101 degrees Farenheit within one month of your surgery. 2. You have worsening back/neck pain, not controlled with your pain medication. 3. You begin having new trouble moving your arms or legs. 4. You develop pain, burning, urgency/frequency with urination. 5. You develop redness, swelling, or milky or watery drainage from your wound. 6. You have increasing trouble swallowing or breathing after anterior neck surgery. Prescriptions*: The following have been prescribed to control your discomfort after surgery: (X) Narcotic pain medications, such as Percocet, Vicodin, oxycodone or Dilaudid 1. DO NOT use alcohol, drive, or operate heavy or complex machinery while taking these medications. ??? Narcotic pain medications may cause constipation. ??? Stool softeners, such as Colace; mild laxatives, such as Milk of Magnesia, Sennakot, or Ducolaxtabs; or enemas may be used if needed and are hiqq-yei-nxgdiuy (OTC) medications available at most local pharmacies. Prunes or prune juice, taken daily, can also be helpful for constipation treatmentor prevention and are available at most [email or web address]. Driving Restrictions*: - [X] No driving for the first two weeks after surgery. Activities: ??? Discuss return to work or school with your surgeon. ? No heavy lifting. You may lift what is comfortable to lift with one arm. Nothing greater than 3-5pounds until re-evaluated by your physician. ? Avoid pushing and/or pulling objects. No washing garzon, windows, or floors, and no vacuuming or lifting heavy laundry or grocery bags. ? No shoveling, mowing lawns, climbing onto roofs or up ladders and no painting. ? Avoid prolonged periods of straight-back sitting (e.g., no more than 20 minutes at a time), without changing your position. ? No bending, twisting, or lifting. It is better to bend at the knees. ??? You will be advised at your follow-up appointment when you may resume these activities. Diet: ??? Eat a well-balanced diet. Fresh fruits, vegetables and fiber-containing foods are recommended. This will assist in wound healing. Recommendations: ??? Take it easy for two weeks. Remember, If it hurts, don't do it. ??? Take several slow, short walks each day for the first two weeks, and gradually increase your distance. We recommend at least 4 times a day. ??? You can go up and down stairs, but take your time and make sure your feet are securely placed on each step. ??? You can resume sexual activity over the next several weeks. You should be positioned on your back or side. ??? Ankle pump exercises (like pressing and releasing the gas pedal) should be done several times each day until you are back to your normal activities. Wound Care: ??? After 4 days, you can shower per usual routine and wash the incision area gently. Pat incision dry with a clean, dry towel. ? Do not submerge the wound under water (avoid spas, pools and bathtubs) until it is fully healed. ? Do not use creams, oils, or ointments on the wound. ??? Keep the wound open to air if it is not draining. ??? See follow-up appointments below for removal of sutures/michelle. Comfort: ??? Some incision soreness can be expected. ??? Take your pain medication as needed and prescribed. ??? Taper use of pain medication as pain lessens. ??? After neck surgery, your throat may be a little sore for the first 2-3 days. This is normal. ??? You may have some voice hoarseness after neck surgery. This should improve over several days. Follow-up Appointments: (X) Please follow-up in Neurosurgery Clinic with: (X)Dr. Gutierrez in 4-6 weeks. (X) Radiology with f/u appointment: (X)xray: (X)cervical (X)AP/LAT Please call the Neurosurgery Clinic if you have not received a scheduled appointment in the mail within 2-3 weeks. (X)You have absorbable sutures. They will absorb on their own. Steri strips will flake-off gradually. IMPORTANT PHONE NUMBERS: Saturday - Saturday (8AM to 5PM): ?? Outpatient nurse - Tiffanie Franco RN: ?? Outpatient nurse practitioner - Keyla Sawyer, HAND THERMAL CUTTER: ?? Inpatient associate providers - Edu Romero PA-C, Edu Dahl PA-C, Becky Payton, HAND THERMAL CUTTER: ?? Neurosurgeons - Dr. Gutierrez, Dr. Williamson, Dr. Swan, Dr. Franklin, and Dr. Trimble: ?? Pediatric Neurosurgeon - Dr. Willard After office hours (5PM to 8AM) and on weekends you can reach neurosurgery by calling the hospital belt back operator at and ask for the Neurosurgery resident on-call Neurology/Neurosugery (5W) and Neuro Special Care Unit (NSCU): CC: BECKY PAREDES MD documented in this encounter Medications at Time of Discharge Medication Sig Dispensed Refills Start Date End Date acetaminophen (TYLENOL) 325 mg Tablet Take 2 tablets by mouth every 4 hours as needed for Pain (mild pain). 30 tablet 1 08/03/2015 cyclobenzaprine (FLEXERIL) 10 mg Tablet Take 1 tablet by mouth 3 times daily as needed for Muscle spasms. 20 tablet 0 08/03/2015 documented as of this encounter Progress Notes * Stephanie Morales RN - 08/03/2015 8:28 AM EDT Office of Care Management (OCM) / Component Assembler Supervisor(CM)/ Initial Assessment Discussed patient with Provider Team and in multidisciplinary discharge-planning rounds. Reviewed record and interviewed patient. Introduced/reviewed CM role and services accepted. Discharge Plan: Record reviewed and patient discussed with multidisciplinary team. No discharge needs identified atthis time. Component Assembler Supervisor remains available as needed for coordination of care and discharge planning. REASON for HOSPITALIZATION: CERVICAL SPONDYLOSIS; s/p C4-5 ACDF PMH :See H&P PREVIOUS FUNCTIONAL STATUS: Cognitively and physically independent CURRENT FUNCTIONAL STATUS:Cognitively and physically independent SOCIAL / FAMILY SUPPORTS: Pt lives in a home with parents. ADVANCE DIRECTIVES: None HEALTH /PRESCRIPTION COVERAGE:[employer] [place] CURRENT HOME/COMMUNITY SERVICES/EQUIPMENT: None DME: Home Health Agency: Other: [facility] REFERRAL: not needed at this time: PRIMARY CARE PHYSICIAN: BECKY PAREDES MD [address] / [place] [address] POTENTIAL DISCHARGE NEEDS: None ANTICIPATED BARRIERS TO DISCHARGE:None TRANSPORTATION @ D/C: family car PLAN: CM will continue to monitor progress, follow for continuity of care and assist with dischargeplanning while hospitalized . * Shamika Ortega - 08/03/2015 7:13 AM EDT NEUROSURGERY PROGRESS NOTE Krish Dumont [id number] 1955 ID: 60 y.o. irina s/p C4-5 ACDF, POD 1 INTERVAL Hx: - No acute events - Continues with hand parasthesias MEDICATIONS: Scheduled Meds: ??? sodium chloride 0.9 % 5 mL Intravenous BID ??? senna-docusate 2 tablet Oral BID ??? pantoprazole 40 mg Oral Daily Or ??? pantoprazole 40 mg Intravenous Daily Continuous Infusions: ??? sodium chloride 0.9% with potassium chloride 20 mEq 1,000 mL (08/02/152102) EXAM: Temp: [36.4 ??C (97.5 ??F)-37.1 ??C (98.8 ??F)] Heart Rate: [50-69] Resp: [11-25] BP: (138-182)/(73-96) SpO2: [94 %-99 %] I/O last 3 completed shifts: In: 2405 [P.O.:1100; I.V.:1305] Out: 2024 [Urine:2024] GEN:NAD NEURO:AA+Ox3 Speech fluent and appropriate. PERRL. EOMI. No facial asymmetry Tongue midline MOTOR: RUE:5/5 LUE:5/5 RLE: 5/5 LLE: 5/5 No pronator drift LT sensation intact x 4 Recent Labs 08/03/15 0550 WBC 6.7 HGB 14.7 PLATELET 159 Recent Labs 08/03/15 0550 NA 139 K 4.4 CL 105 CO2 25 BUN 15 CREATININE 0.82 No results for input(s): PT, INR in the last 72 hours. A/P: 60 y.o. irina s/p C4-5 ACDF, POD 1. Neurologically intact. Doing well post-op. 1. Neuro: Close monitoring. Q4 neuro checks. 2. CVS: BP control, keep SBP<160 3. Resp: IS 4. GI: ADAT, nexium 5. Hem: Hold off anticoagulation. SCDs. 6. ID: Cefazolin delia-op 7. : No issues 8. FEK: IVF until good PO. Monitor lytes. Shamika Ortega [id number] * Brendan Ray RN - 08/02/2015 11:34 AM EDT 1135 Report from Maite Collins RN. VSS, patient alert and oriented. Rates PI 3-4/10 at present. Denies need for pain meds at this time. documented in this encounter H&P Notes * Holly Chapa MD - 08/02/2015 6:40 AM EDT No change from prior Heart: normal S1 and S2. No M/R/G Lungs: ctab anteriorly documented in this encounter Miscellaneous Notes * Op Note - Holly Chapa MD - 08/05/2015 12:05 PM EDT Surgical Staff and Assistants: Gerardo Gutierrez M.D.; Holly Chapa M.D. Procedure Performed: C4-C5 ACDF. Indication for the Procedure: Mr. Dumont is a 58-year-old male patient who presented to us with symptomatic spinal stenosis, and he requested anterior cervical decompression and fusion, and arrangements for that have been made. Anesthesia: General endotracheal anesthesia. EBL: 50 mL. Drains: None. Complications: None apparent. Description of the Procedure: After appropriate patient identification, the patient was brought back to the operating room and was placed in the supine position. After administration of general endotracheal anesthesia, the appropriate levels were localized with the use of intraoperative fluoroscopy. A horizontally oriented incision paralleling a prior neck crease was designed on the right side medial to the sternocleidomastoid muscle. Subsequently, the patient was prepped and draped in the usual sterile fashion. The incision was brought down to the platysma muscle with the use of a #10 blade, and a self-retaining retractor was deployed. Metzenbaum scissors were used to dissect the neck tissue all the way to the prevertebral fascia, which was sharply dissected and opened. A spinal needle was used for appropriate localization of the appropriate disk level, which was confirmed with intraoperative fluoroscopy. Subsequently, the Boss retractor was used to retract the wound laterally. Bovie electrocautery was used to elevate the longus colli muscles from the vertebral bodies. Distraction posts were placed on the vertebral body above and below the decompression and were distracted. Subsequently, the operating microscope was brought into the field. A #15 blade was used to dissect the annulus, and curettes and pituitary forceps were used to remove the disk. Subsequently, an M8 drill of the [place] drill was used to drill the posterior and anterior osteophytes and smooth the endplates at the levels above and below. Subsequently, the PLL was identified and opened with the use of a microhook and a #1 Kerrison. #2 Kerrisons were used to complete the removal of the PLL and any disk fragments and osteophytes. Subsequently, a regular right-angle hook was used to assure that adequate decompression had been achieved. Subsequently, the wound was copiously irrigated, and hemostasis was achieved with the use of Surgiflo. Subsequently, the defect was sized and the appropriate lordotic cadaveric bone implant was tapped into place. An appropriate size plate with four 14-mm variable-angle, self-drilling, self-tapping screws were used. The screws were locked in position. Subsequently, the wound was copiously irrigated and was closed in layers. A confirmatory x-ray was performed to ensure that the construct was in the correct position. Subsequently, the platysma muscle was closed with 3-0 Vicryls in interrupted sutures, and the skin was closed with 4-0 Monocryl running subcuticular suture. Mastisol and Steri-Strips were applied onto the skin. At the end of the procedure, all needle, instruments, and sponge counts were correct. Dr. Gutierrez was present for the entire procedure. At the end of the procedure, the patient was extubated and was transferred to the perioperative anesthesia care unit in stable condition. * Plan of Care - Yesy Tuttle RN - 08/03/2015 11:38 AM EDT Problem: General Plan of Care Goal: Plan of Care Review Outcome: Outcome (s) achieved Date Met: 08/03/15 08/03/15 1132 Plan of Care Review Plan of Care Outcome Status outcome achieved Progress progress toward functional goals as expected Coping/Psychosocial Response Interventions Plan of Care Reviewed with patient;family OUTCOME EVALUATION NOTE: OUTCOME SUMMARY: 60 year old male admitted 08/02/15 for ACDF procedure now being d/c'd home via personal vehicle driven by mother. At time of d/c patient neurologically intact, IV d/c'd, strengths intact. Patient ambulating well with steady gait to bathroom, stand by assist. Using bathroom in adequate amounts spontaneously. Patient cooperative and pleasant. C/o pain at neck incision site, treated well with oxycodone and flexeril. Tolerating regular diet well. D/c summary and AVS given to patient and mother, all questions answered. Follow-up appointments and suture treatments discussed. Prescriptions given to patient. PLAN MOVING FORWARD: D/c home INDIVIDUALIZED FALL PREVENTION INTERVENTIONS: Patient-specific fall risk factors per assessment: [current deficits]: Patient had ACDF, at risk tofall due to surgery and pain medications Assistance [level of assistance required for transfers and ambulation]: Stand by assist Supervision [direct monitoring required during toileting and ADLs]: GOLF [employer]UB WEIGHTER/RN Surveillance [continuous indirect monitoring]: Call best within reach, purposeful hourly rounding, bed alarm Patient-specific fall prevention interventions for sensory deficits provided, if applicable: N/A CPG GOAL OUTCOME EVALUATION: Goal: Individualization and Mutuality Outcome: Outcome (s) achieved Date Met: 08/03/15 08/02/15 2100 Mutuality/Individual Preferences What anxieties, fears or concerns do you have about your health or care? no What questions do you have about your health or care? no What information would help us give you more personalized care? no Goal: Fall Prevention-Safe Patient Handling Outcome: Outcome (s) achieved Date Met: 08/03/15 08/03/15 0800 08/03/15 0942 Musculoskeletal Interventions Activity/Level of Assistance -- with stand by assist Positioning -- independent Muscle Strengthening activity/mobility promoted;mobility in bed promoted;personal routines for BADL/IADL promoted;sitting on edge of bed encouraged;strengthening exercises performed;up in chair encouraged for meals and activities -- Self-Care Promotion assistance provided to decrease frustration;independence encouraged while providing assistance -- Teo Fall Risk History of Falling 0 -- Secondary Diagnosis 15 -- Ambulatory Aids 0 -- Intravenous Therapy/Heparin/Saline Lock 20 -- Gait/Transferring 10 -- Mental Status 0 -- Score 45 -- Activity and Safety Assistive Device None -- OTHER Bruce Fall Risk High -- Safety Interventions Safety Precautions/Fall Reduction -- bed alarm Goal: Infection Control Outcome: Outcome (s) achieved Date Met: 08/03/15 08/03/15 0800 Coping/Psychosocial Response Interventions Counseling calming techniques promoted;emotional support provided;goal setting facilitated Safety Interventions Isolation Precautions standard precautions maintained Infection Prevention bronchial hygiene promoted;environmental surveillance;hydration promoted;rest/sleep promoted;nutrition promoted;promote handwashing Goal: Discharge Needs Assessment Outcome: Outcome (s) achieved Date Met: 08/03/15 08/02/15 2100 08/03/15 013 Discharge Needs Assessment Concerns to be Addressed -- no discharge needs identified Readmission Within the Last 30 Days -- no previous admission in last 30 days Equipment Needed After Discharge -- none Current Health Anticipated Changes Related to Illness -- none Self-Care Equipment Currently Used at Home -- none Living Environment Transportation Available family or friend will provide -- Problem: Fall/Trauma/Injury Risk (Adult, Obstetrics) Goal: Identify Signs and Symptoms and Related Risk Factors Signs and symptoms and related risk factors are identified upon initiation of Human Response Clinical Practice Guideline (CPG) Outcome: Outcome (s) achieved Date Met: 08/03/15 08/03/15 013 Fall/Trauma/Injury Risk Personal Related Risk Factors (Fall/Trauma/Injury Risk) gait/mobility problems/weakness Environmental Related Risk Factors (Fall/Trauma/Injury Risk) environment unfamiliar Signs and Symptoms (Fall/Trauma/Injury Risk) decreased knowledge of safety/environmental hazards;nonalliance with safety precautions;presence of risk factors Goal: Absence of Trauma/Injury/Falls Patient will demonstrate the desired outcomes. Outcome: Outcome (s) achieved Date Met: 08/03/15 08/03/15 1132 Fall/Trauma/Injury Risk (Adult, Obstetrics) Absence of Trauma/Injury/Falls achieves outcome * Plan of Care - Leisa Sagastume RN - 08/03/2015 1:39 AM EDT Problem: General Plan of Care Goal: Plan of Care Review 08/03/15136 Plan of Care Review Plan of Care Outcome Status ongoing (interventions implemented as appropriate) Progress no change Goal: Fall Prevention-Safe Patient Handling 08/02/15221908/03/15 0100 08/03/15136 Musculoskeletal Interventions Activity/Level of Assistance -- with stand by assist;up in room -- Positioning -- independent -- Muscle Strengthening -- -- activity/mobility promoted;sitting on edge of bed encouraged;up in chairencouraged for meals and activities Self-Care Promotion -- -- independence encouraged while providing assistance Bruce Fall Risk History of Falling 0 -- -- Secondary Diagnosis 15 -- -- Ambulatory Aids 0 -- -- Intravenous Therapy/Heparin/Saline Lock 20 -- -- Gait/Transferring 10 -- -- Mental Status 15 -- -- Score 60 -- -- Activity and Safety Assistive Device None -- -- OTHER Bruce Fall Risk High -- -- Safety Interventions Safety Precautions/Fall Reduction -- bed alarm;commode/urinal/bedpan at bedside;environmental modification;fall reduction program maintained;lighting adjusted for task/safety;room near unit station;nonskid shoes/slippers when out of bed -- Goal: Infection Control 08/02/15221908/02/152299 Safety Interventions Isolation Precautions standard precautions maintained -- Infection Prevention environmental surveillance;hydration promoted;nutrition promoted;promote handwashing;rest/sleep promoted -- Coping/Psychosocial Response Interventions Counseling -- calming techniques promoted;relaxation techniques promoted;reassurance provided Goal: Discharge Needs Assessment 08/02/15 2100 08/03/15136 Discharge Needs Assessment Concerns to be Addressed -- no discharge needs identified Readmission Within the Last 30 Days -- no previous admission in last 30 days Equipment Needed After Discharge -- none Current Health Anticipated Changes Related to Illness -- none Self-Care Equipment Currently Used at Home -- none Living Environment Transportation Available family or friend will provide -- Problem: Fall/Trauma/Injury Risk (Adult, Obstetrics) Goal: Identify Signs and Symptoms and Related Risk Factors Signs and symptoms and related risk factors are identified upon initiation of Human Response Clinical Practice Guideline (CPG) 08/03/15136 Fall/Trauma/Injury Risk Personal Related Risk Factors (Fall/Trauma/Injury Risk) gait/mobility problems/weakness Environmental Related Risk Factors (Fall/Trauma/Injury Risk) environment unfamiliar Signs and Symptoms (Fall/Trauma/Injury Risk) decreased knowledge of safety/environmental hazards;nonalliance with safety precautions;presence of risk factors Goal: Absence of Trauma/Injury/Falls Patient will demonstrate the desired outcomes. 08/03/15 0137 Fall/Trauma/Injury Risk (Adult, Obstetrics) Absence of Trauma/Injury/Falls making progress toward outcome Comments: OUTCOME EVALUATION NOTE: OUTCOME SUMMARY: Pt arrived on the floor shortly after shift started. Pt's neck dressing upon arrival had dried drainage marked on it. At this point no new drainage has appeared. Pt became agitated with staff once heset off the bed alarm. Pt started yelling at staff and telling them to turn it off. He stated he wont fall and doesn't require it. RN and [employer] educated the need for it and that it is a hospital policy. Pt continues to appear upset and frustrated. Pt was assessed and admit documentation was completed. Pt continues to have NS with 20K running at 100ml/hr. Pt verbalized pain in his neck and was givenPO pain medication. Pt appeared to have relief because upon pain reassessment pt appeared asleep. Pt refused to wear Masimo. Every vitals check pt was sating high 90's. Pt is A&Ox4 and VSS. Will continue to monitor and notify MD of any changes. PLAN MOVING FORWARD: Pt stated he will be leaving 08/02 whether MD wants him to or not. RN passed info on to healthcare network consultant. INDIVIDUALIZED FALL PREVENTION INTERVENTIONS: Bed alarm Patient-specific fall risk factors per assessment: [current deficits]: Unfamiliar place, dark room,today's procedure Assistance [level of assistance required for transfers and ambulation]: None Supervision [direct monitoring required during toileting and ADLs]: SBA Surveillance [continuous indirect monitoring]: Pt refused masimo. Hourly rounding CPG GOAL OUTCOME EVALUATION: * Brief Op Note - Gerardo Gutierrez MD - 08/02/2015 9:22 AM EDT Brief Operative Note Patient Name: Krish Dumont : [id number] MR#: [id number] Case Date: 08/02/2015 Surgeon: Surgeon(s) and Role: * Gerardo Gutierrez MD - Primary * Holly Chapa MD - Resident-Surgeon Chief Preoperative diagnosis: CERVICAL SPONDYLOSIS Postoperative diagnosis: CERVICAL SPONDYLOSIS Procedure(s): ARTHRODESIS, ANT INTERBODY,DECOMPRESSION; CERVICAL BELOW C2 ANT. CX. FUSION INCLUD. MIN. DISCECTOMY; BELOW C2 ALLOGRAFT FOR SPINE SURGERY ONLY; STRUCTUAL AUTOGRAFT FOR SPINE SURGERY ONLY; STRUCTUAL, BI\TRICORTICAL MODIFIER GLOBUS PROVIDENCE MODIFIER, GLOBUS FORGE MICROSCOPE USE Anesthesia: GET Fluids: 800cc Estimated Blood Loss: 10cc Attestation: Case Date: 08/02/2015 I was present and I participated during the entire procedure (does not need to include opening and closing). (Please see the Surgical Encounter Summary for any Implant and Specimen details pertinent to this patient.) documented in this encounter Plan of Treatment Pending Results Name Type Priority Associated Diagnoses Date /Time FILM LIBRARY-FLUORO OR [id number] ONL Imaging Routine 08/02/2015 10: 01 AM EDT Scheduled Orders Name Type Priority Associated Diagnoses Orde r Schedule FILM LIBRARY-FLUORO OR [id number] ONL Imaging Routine Once PRN (f or Radiant use) for 1 Occurrences starting 08/02/2015 until 08/02/2015 documented as of this encounter Procedures Procedure Name Priority Date/Time Associated Diagnosis Comments IMPLANTABLE DEVICES SCAN 08/04/2015 12:00 AM EDT IMPLANTABLE DEVICES SCAN 08/04/2015 12:00 AM EDT INSURANCE VERIFICATION REPRESENTATIVE SCAN 08/04/2015 12:00 AM EDT HEMOGRAM Routine 08/03/2015 5:50 AM EDT DIFFERENTIAL, AUTOMATED Routine 08/03/2015 5:50 AM EDT CBC (WITH DIFF) Routine 08/03/2015 5:50 AM EDT BASIC METABOLIC PANEL Routine 08/03/2015 5:50 AM EDT XR CERVICAL SPINE 2 OR 3 VIEWS Routine 08/02/2015 7:16 PM EDT MICROSCOPE USE (WRVU 3.46) 08/02/2015 7:29 AM EDT CERVICAL SPONDYLOSIS MODIFIER, GLOBUS FORGE 08/02/2015 7:29 AM EDT CERVICAL SPONDYLOSIS MODIFIER GLOBUS PROVIDENCE 08/02/2015 7:29 AM EDT CERVICAL SPONDYLOSIS AUTOGRAFT FOR SPINE SURGERY ONLY; STRUCTUAL, BI\TRICORTICAL (WRVU 3.02) 08/02/2015 7:29 AM EDT CERVICAL SPONDYLOSIS ALLOGRAFT FOR SPINE SURGERY ONLY; STRUCTUAL (WRVU 1.81) 08/02/2015 7:29 AM EDT CERVICAL SPONDYLOSIS ANT. CX. FUSION INCLUD. MIN. DISCECTOMY; BELOW C2 (WRVU 17.69) 08/02/2015 7:29 AM EDT CERVICAL SPONDYLOSIS ARTHRODESIS, ANT INTERBODY,DECOMPRESS ION; CERVICAL BELOW C2 (WRVU 25) 08/02/2015 7:29 AM EDT CERVICAL SPONDYLOSIS TYPE AND SCREEN, SDP (FUTURE SURGERY, [facility] SAME DAY PROGRAM ONLY) STAT 08/02/2015 6:09 AM EDT ABO/RH TYPING STAT 08/02/2015 6:09 AM EDT ANTIBODY SCREEN STAT 08/02/2015 6:09 AM EDT documented in this encounter Results * SCAN DOC: IMPLANTABLE DEVICES (08/04/2015 12:00 AM EDT) Scanning Provider MEDIA MGR SCAN EXT O RDR/RSLT * SCAN DOC: IMPLANTABLE DEVICES (08/04/2015 12:00 AM EDT) Scanning Provider MEDIA MGR SCAN EXT O RDR/RSLT * SCAN DOC: INSURANCE VERIFICATION REPRESENTATIVE (08/04/2015 12:00 AM EDT) Anatomical Region Laterality Modality Other Scanning Provider MEDIA MGR SCAN EXT O RDR/RSLT * Differential, Automated (08/03/2015 5:50 AM EDT) Neutrophil % 73.4 % [facility] Neutrophil Absolute 4.94 1.50 - 6.30 x10(3)/mcL [facility] Lymph % 17.1 % [facility] Lymphocytes Abs 1.2 1.0 - 3.6 x10(3)/[facility] Monocyte % 9.4 % [facility] Monocyte Abs 0.6 0.2 - 1.0 x10(3)/[facility] Eos % 0.0 % [facility] Eosinophils Abs 0.0 0.0 - 0.5 x10(3)/[facility] Basophil % 0.0 % [facility] Baso Absolute 0.0 0.0 - 0.2 x10(3)/[facility] Immature Gran % 0.10 % [facility] Comment: Immature granulocytes(IG's)percentage and absolute count will include metamyelocytes, myelocytes, and promyelocytes. Blood smears from CBCs yielding IG's will be scanned manually for concordance. If this scan disagrees with the automated IG or if promyelocytes are noted, a manual differential will be performed. Immature Gran Absolute 0.01 0.00 - 0.05 x10(3)/[facility] Blood specimen (specimen) 08/03/2015 5:50 AM EDT 08/03/2015 6:08 AM EDT Narrative Resulting Agency Comment Spec In Lab Gerardo Gutierrez MD HEMATOLOGY ORDERABLE S [facility] [place] [address] * Hemogram (08/03/2015 5:50 AM EDT) White Blood Cell 6.7 4.0 - 10.0 x10(3)/[facility] Red Blood Cell 4.83 4.63 - 6.08 x10(6)/[facility] Hemoglobin 14.7 13.7 - 17.5 gm/dL [facility] Hematocrit 43.2 40.0 - 51.0 % [facility] Mean Cell Volume 89.4 79.0 - 92.0 fL [facility] Mean Cell Hemoglobin 30.4 25.6 - 32.2 pg [facility] Mean Cell Hemoglobin Concentration 34.0 32.0 - 36.5 gm/dL [facility] Platelet 159 145 - 370 x10(3)/mcL [facility] RDW Standard Deviation 44.6 35.0 - 46.0 fL [facility] RDW coefficient of variation 13.6 10.9 - 14.4 % [facility] Mean Platelet Volume 10.7 9.0 - 12.0 fL [facility] Blood specimen (specimen) 08/03/2015 5:50 AM EDT 08/03/2015 6:08 AM EDT Narrative Resulting Agency Comment Spec In Lab Gerardo Gutierrez MD HEMATOLOGY ORDERABLE S [facility] [place] [address] * Basic Metabolic Panel (non-fasting) (08/03/2015 5:50 AM EDT) Glucose 109 65 - 199 mg/dL [facility] Comment:Diabetes: >=200 mg/d L plus symptoms Blood Urea Nitrogen 15 10 - 20 mg/dL [facility] Creatinine 0.82 0.80 - 1.50 mg/dL [facility] Comment: Please note that the pediatric reference intervals supplied above were not validated at [facility]. Results from pediatric patients should be interpreted in conjunction to the patient's age, height and muscle mass. Sodium 139 135 - 145 mmol/L [facility] Potassium 4.4 3.5 - 5.0 mmol/L [facility] Comment: Please note: ??Patients with WBC >100,000 may have falsely elevated Potassium levels. ??For accurate Potassium quantification in these patients send serum separator tube (gold top) for subsequent determinations. ??Contact the Clinical Chemistry Laboratory if there are any questions. Chloride 105 98 - 107 mmol/L [facility] Carbon Dioxide 25 22 - 31 mmol/L [facility] Anion Gap 9 5 - 15 mmol/L [facility] Calcium 8.6 8.5 - 10.5 mg/dL [facility] Est Glomerular Filtration Rate >60 >=60 [facility] Comment: This estimated GFR (eGFR) value was calculated using the MDRD equation which has been validated on patients between the ages of 18 and 70. The MDRD should not be used to assess kidney function in patients < 18 years of age or in patients with extremes of body mass, or in patients with acute kidney failure. This value should be multiplied by 1.2 for patients. For further information please copy and paste the following links into your internet browser. [email or web address]://[email or web address] [email or web address] Blood specimen (specimen) 08/03/2015 5:50 AM EDT 08/03/2015 6:08 AM EDT Narrative Resulting Agency Comment Spec In Lab Gerardo Gutierrez MD CHEMISTRY ORDERABLES [facility] [place] [id number] * XR Cervical Spine 2 Or 3 Views (NR GENERIC) (08/02/2015 7:16 PM EDT) Anatomical Region Laterality Modality C-spine N/A Digital Radiogra phy Impressions 08/02/2015 8:06 PM EDT IMPRESSION: Post ACDF changes of C4-C5, with no immediate postoperative complication identified. Narrative 08/02/2015 8:06 PM EDT EXAMINATION: XR CERVICAL SPINE 2 OR 3 VIEWS CLINICAL HISTORY: postop, on the way to patient's room TECHNIQUE: AP and lateral views of the cervical spine. COMPARISON: Intraoperative spot views from earlier today. FINDINGS: Anterior C4-C5 fixation plate and screws, with interbody graft, as on the intraoperative spot views. No change in cervical spine alignment. No immediate postoperative hardware complication seen. Expected prevertebral postoperative soft tissue changes. Procedure Note Bethanie Williamson MD - 08/02/2015 EXAMINATION: XR CERVICAL SPINE 2 OR 3 VIEWS CLINICAL HISTORY: postop, on the way to patient's room TECHNIQUE: AP and lateral views of the cervical spine. COMPARISON: Intraoperative spot views from earlier today. FINDINGS: Anterior C4-C5 fixation plate and screws, with interbody graft,as on the intraoperative spot views. No change in cervical spine alignment. No immediate postoperative hardware complication seen. Expectedprevertebral postoperative soft tissue changes. IMPRESSION IMPRESSION: Post ACDF changes of C4-C5, with no immediate postoperative complication identified. Gerardo Gutierrez MD IMG DX ORDERABLES * Antibody screen (08/02/2015 6:09 AM EDT) Ab Screen Interp Negative [facility] Expires at 2359 on: 08/05/2015 [facility] Blood specimen (specimen) 08/02/2015 6:09 AM EDT 08/02/2015 6:09 AM EDT Narrative Resulting Agency Comment Spec In Lab Gerardo Gutierrez MD BLOOD BANK LAB ORDER EM Performing Organization Address City/[facility]/ZIP Co de Phone Number [facility] [place] [address] * ABO/Rh Typing (08/02/2015 6:09 AM EDT) ABORH Type O Pos [facility] Blood specimen (specimen) 08/02/2015 6:09 AM EDT 08/02/2015 6:09 AM EDT Narrative Resulting Agency Comment Spec In Lab Gerardo Gutierrez MD BLOOD BANK LAB ORDER EM Performing Organization Address [facility]/ZIP Co de Phone Number [facility] [place] [address] documented in this encounter Visit Diagnoses Not on filedocumented in this encounter Admitting Diagnoses Diagnosis Spinal stenosis Spinal stenosis, unspecified region other than cervical documented in this encounter Administered Medications Inactive Administered Medications - up to 3 most recent administrations Medication Order MAR Action Action Date Dose Rate Site acetaminophen (TYLENOL) tablet 650 mg 650 mg, Oral, EVERY 4 HOURS PRN, Starting on Sat08/02/15 at 0951, Until Sat08/03/15 at 1334, Pain, mild pain, May repeat once in 30 minutes if desired effect not achieved. Do not exceed 4000 mg acetaminophen per day. Mild pain (1-3)., Routine Given 08/02/2015 11:05 AM EDT 650 mg bacitracin injection ONCE PRN, Starting on Sat08/02/15 at 0820, Until Sat08/02/15 at 0955, Intra-Operative (Intra-Procedure), Routine Given 08/02/2015 8:20 AM EDT 50,000 Units 19- Surgical Site bisacodyl (DULCOLAX) EC tablet 10 mg 10 mg, Oral, 2 TIMES DAILY PRN, Starting on Sat08/02/15 at 0950, Until Sat08/03/15 at 1334, Constipation, DO NOT CRUSH OR OPEN Administer if needed per patient's routine or if no bowel movement within 48 hours to achieve: 1) One bowel movement at least every 48 hours, AND 2) Without straining. If multiple bowel medications ordered, consider adding bisacodyl if polyethylene glycol (MIRALAX) and lactulose not sufficient., Routine Given 08/03/2015 10:05 AM EDT 10 mg ceFAZolin (ANCEF) 1g in dextrose 5% 50mL 1,000 mg (1 g), Intravenous, EVERY 8 HOURS, 3 doses, First dose on Sat08/02/15 at 1015, Last dose on Sat08/03/15 at 0215, Administer over 30 Minutes, Indication for (Active or Suspected): Prophylaxis Given 08/03/2015 5:24 AM EDT 1,000 mg 100 mL/hr Given 08/02/2015 8:57 PM EDT 1,000 mg 100 mL/hr Given 08/02/2015 2:41 PM EDT 1,000 mg 100 mL/hr cyclobenzaprine (FLEXERIL) tablet 10 mg 10 mg, Oral, 3 TIMES DAILY PRN, Starting on Sat08/03/15 at 0832, Until Sat08/03/15 at 1334, Muscle spasms, Routine Given 08/03/2015 10:45 AM EDT 10 mg gelatin adsorbable (GELFOAM) sponge ONCE PRN, Starting on Sat08/02/15 at 0850, Until Sat08/02/15 at 0955, Intra-Operative (Intra-Procedure) Given 08/02/2015 8:50 AM EDT 1 each 19- Surgical Site HYDROmorphone (DILAUDID) syringe 0.2-0.4 mg 0.2-0.4 mg, Intravenous, EVERY 5 MIN PRN, Pain, Starting on Sat08/02/15 at 0906, Until Sat08/02/15 at 1645, For moderate pain (4-6) give: 0.2 mg every 5 minute prn For severe pain (7-10) give: 0.4 mg every 5 minutes prn Maximum dose: 4 mg per hour Hold for respiratory rate less than 10 per minute., PACU Recovery Given 08/02/2015 9:54 AM EDT 0.4 mg Given 08/02/2015 9:44 AM EDT 0.4 mg lactated ringers infusion 1,000 mL 1,000 mL, at 100 mL/hr, Intravenous, CONTINUOUS, Starting on Sat08/02/15 at 0645, Until Sat08/02/15 at 0955, Day of Surgery (Day of Procedure) New Bag 08/02/2015 6:45 AM EDT 1,000 mLs 100 mL/hr lidocaine-EPINEPHrine 1 %-1:200,000 injection ONCE PRN, Starting on Sat08/02/15 at 0808, Until Sat08/02/15 at 0955, Intra-Operative (Intra-Procedure), Routine Given 08/02/2015 8:08 AM EDT 3 mLs 19- Surgical Site nicotine (NICODERM CQ) 14 mg/24 hr patch 14 mg 14 mg, Transdermal, Administer over 24 Hours, DAILY, First dose on Sat08/03/15 at 1000, Until Discontinued, Routine Given 08/03/2015 10:45 AM EDT 14 mg 03- Shoulder (Left) oxyCODONE (ROXICODONE) immediate release tablet 10 mg 10 mg, Oral, EVERY 4 HOURS PRN, Starting on Sat08/02/15 at 0951, Until Sat08/03/15 at 1334, Pain, severe pain (7-10), May give an additional 5 mg in 30 minutes once if pain not relieved. Severe pain (7-10), Routine Given 08/03/2015 8:47 AM EDT 10 mg Given 08/02/2015 11:38 PM EDT 10 mg Given 08/02/2015 2:42 PM EDT 10 mg pantoprazole (PROTONIX) tablet 40 mg 40 mg, Oral, DAILY, First dose on Sat08/02/15 at 2000, Until Discontinued, DO NOT CRUSH OR OPEN If unable to take PO, may give IV Given 08/03/2015 8:48 AM EDT 40 mg Given 08/02/2015 8:58 PM EDT 40 mg senna-docusate (PERICOLACE) 8.6-50 mg per tablet 2 tablet 2 tablet, Oral, 2 TIMES DAILY, First dose on Sat08/02/15 at 2100, Until Discontinued, Routine Given 08/03/2015 8:48 AM EDT 2 tablets Given 08/02/2015 8:58 PM EDT 2 tablets sodium chloride 0.9 % flush 5 mL 5 mL, Intravenous, 2 TIMES DAILY, First dose on Sat08/02/15 at 1015, Until Discontinued, Recovery (Recovery-Hospital Unit), Routine Given 08/02/2015 8:58 PM EDT 5 mLs sodium chloride 0.9% with potassium chloride 20 mEq infusion 1,000 mL, at 100 mL/hr, Intravenous, CONTINUOUS, Starting on Sat08/02/15 at 1015, Until Sat08/03/15 at 0833, Recovery (Recovery-Hospital Unit) New Bag 08/03/2015 7:50 AM EDT 1,000 mLs 100 mL/hr New Bag 08/02/2015 9:03 PM EDT 1,000 mLs 100 mL/hr New Bag 08/02/2015 9:57 AM EDT 1,000 mLs 100 mL/hr thrombin (bovine) (THROMBIN-JMI) solution ONCE PRN, Starting on Sat08/02/15 at 0850, Until Sat08/02/15 at 0955, Intra-Operative (Intra-Procedure) Given 08/02/2015 8:50 AM EDT 5,000 Units 19- Surgical Site documented in this encounter Active and Recently Administered Medications Times are shown in EDT. Scheduled Medication Order 08/01/2015 08/02/2015 08/03/2015 ceFAZolin (ANCEF) 1g in dextrose 5% 50mL (COMPLETED) 1,000 mg (1 g), Intravenous, ONCE, 1 dose, On Sat08/02/15 at 0645, Administer over 30 Minutes, To be administered upon arrival to the OR within one hour prior to incision., Day of Surgery (Day of Procedure), Indication for (Active or Suspected): Prophylaxis 0748 (Given - Provider: Yordan Perez DO) ceFAZolin (ANCEF) 1g in dextrose 5% 50mL (COMPLETED) 1,000 mg (1 g), Intravenous, EVERY 8 HOURS, 3 doses, First dose on Sat08/02/15 at 1015, Last dose on Sat08/03/15 at 0215, Administer over 30 Minutes, Indication for (Active or Suspected): Prophylaxis 1441 (Given - Provider: Emily Collins RN)1600 (Not Given - Provider: Emily Collins RN - Reason: See comment - Comment: given earlier)2056 (Given - Provider: Leisa Sagastume RN) 0524 (Given - Provider: Leisa Sagastume RN) nicotine (NICODERM CQ) 14 mg/24 hr patch 14 mg(Linked Group 1) 14 mg, Transdermal, Administer over 24 Hours, DAILY, First dose on Sat08/03/15 at 1000, Until Discontinued, Routine 1045 (Given - Provid er: Yesy Tuttle RN) pantoprazole (PROTONIX) tablet 40 mg (CANCELED)(Linked Group 2) 40 mg, Oral, DAILY, First dose on Sat08/02/15 at 2000, Until Discontinued, DO NOT CRUSH OR OPEN If unable to take PO, may give IV 2057 (Given - Provider: Leisa Sagastume RN) 0848 (Given - Provider: Yesy Tuttle, YIN) senna-docusate (PERICOLACE) 8.6-50 mg per tablet 2 tablet 2 tablet, Oral, 2 TIMES DAILY, First dose on Sat08/02/15 at 2100, Until Discontinued, Routine 2057 (Given - Provider: Leisa Sagastume RN) 0848 (Given - Provider: Yesy Tuttle RN) sodium chloride 0.9 % flush 5 mL (CANCELED) 5 mL, Intravenous, 2 TIMES DAILY, First dose on Sat08/02/15 at 1015, Until Discontinued, Recovery (Recovery-Hospital Unit), Routine 1015 (Not Given - Provider: Emily Collins RN - Reason: Contraindicated)2057 (Given - Provider: Leisa Sagastume, YIN) Continuous Medication Order 08/01/2015 08/02/2015 08/03/2015 lactated ringers infusion 1,000 mL (CANCELED) 1,000 mL, at 100 mL/hr, Intravenous, CONTINUOUS, Starting on Sat08/02/15 at 0645, Until Sat08/02/15 at 0955, Day of Surgery (Day of Procedure) 0645 (New Bag - Provider: Bibi Sena RN) sodium chloride 0.9% with potassium chloride 20 mEq infusion (CANCELED) 1,000 mL, at 100 mL/hr, Intravenous, CONTINUOUS, Starting on Sat08/02/15 at 1015, Until Sat08/03/15 at 0833, Recovery (Recovery-Hospital Unit) 0957 (New Bag - Provider: Emily Collins RN)2103 (New Bag - Provider: Leisa Sagastume RN) 0750 (New Bag - Provider: Yesy Tuttle, YIN)0843 (Stopped - Provider: Yesy Tuttle RN) PRN Medication Order 08/01/2015 08/02/2015 08/03/2015 acetaminophen (TYLENOL) tablet 650 mg(Linked Group 3) 650 mg, Oral, EVERY 4 HOURS PRN, Starting on Sat08/02/15 at 0951, Until Sat08/03/15 at 1334, Pain, mild pain, May repeat once in 30 minutes if desired effect not achieved. Do not exceed 4000 mg acetaminophen per day. Mild pain (1-3)., Routine 1105 (Given - Provider: Emily Collins RN) bacitracin injection (CANCELED) ONCE PRN, Starting on Sat08/02/15 at 0820, Until Sat08/02/15 at 0955, Intra-Operative (Intra-Procedure), Routine 0820 (Given - Provider: Gerardo Gutierrez MD - Comment: Bacitracin 10,000 units mixed per 1L Lactated Ringers.) bisacodyl (DULCOLAX) EC tablet 10 mg (CANCELED) 10 mg, Oral, 2 TIMES DAILY PRN, Starting on Sat08/02/15 at 0950, Until Sat08/03/15 at 1334, Constipation, DO NOT CRUSH OR OPEN Administer if needed per patient's routine or if no bowel movement within 48 hours to achieve: 1) One bowel movement at least every 48 hours, AND 2) Without straining. If multiple bowel medications ordered, consider adding bisacodyl if polyethylene glycol (MIRALAX) and lactulose not sufficient., Routine 1005 (Given - Provid er: Yesy Tuttle RN) cyclobenzaprine (FLEXERIL) tablet 10 mg 10 mg, Oral, 3 TIMES DAILY PRN, Starting on Sat08/03/15 at 0832, Until Sat08/03/15 at 1334, Muscle spasms, Routine 1045 (Given - Provid er: Yesy Tuttle RN) gelatin adsorbable (GELFOAM) sponge (CANCELED) ONCE PRN, Starting on Sat08/02/15 at 0850, Until Sat08/02/15 at 0955, Intra-Operative (Intra-Procedure) 0850 (Given - Provider: Gerardo Gutierrez MD - Comment: Small Gelfoam soaked in thrombin 5,000 units and used as needed throughout the case.) HYDROmorphone (DILAUDID) syringe 0.2-0.4 mg (CANCELED) 0.2-0.4 mg, Intravenous, EVERY 5 MIN PRN, Pain, Starting on Sat08/02/15 at 0906, Until Sat08/02/15 at 1645, For moderate pain (4-6) give: 0.2 mg every 5 minute prn For severe pain (7-10) give: 0.4 mg every 5 minutes prn Maximum dose: 4 mg per hour Hold for respiratory rate less than 10 per minute., PACU Recovery 0944 (Given - Provider: Emily Collins RN)0954 (Given - Provider: Emily Collins RN) lidocaine-EPINEPHrine 1 %-1:200,000 injection (CANCELED) ONCE PRN, Starting on Sat08/02/15 at 0808, Until Sat08/02/15 at 0955, Intra-Operative (Intra-Procedure), Routine 0808 (Given - Provider: Gerardo Gutierrez MD - Comment: Routel Local infiltration.) oxyCODONE (ROXICODONE) immediate release tablet 10 mg (CANCELED)(Linked Group 4) 10 mg, Oral, EVERY 4 HOURS PRN, Starting on Sat08/02/15 at 0951, Until Sat08/03/15 at 1334, Pain, severe pain (7-10), May give an additional 5 mg in 30 minutes once if pain not relieved. Severe pain (7-10), Routine 1036 (Given - Provider: Emiyl Collins RN)1442 (Given - Provider: Emily Collins RN)2338 (Given - Provider: Leisa Sagastume RN) 0847 (Given - Provider: Yesy Tuttle RN) oxyCODONE (ROXICODONE) immediate release tablet 5 mg(Linked Group 4) 5 mg, Oral, EVERY 4 HOURS PRN, Starting on Sat08/02/15 at 0951, Until Sat08/03/15 at 1334, Pain, mild to moderate pain (1-6), May give an additional 5 mg in 30 minutes once if pain not relieved. Mild to moderate pain (1-6), Routine 1036 (See Alternative - Provider: Emily Collins RN)1442 (See Alternative - Provider: Emily Collins RN)2338 (See Alternative - Provider: Leisa Sagastume RN) 0847 (See Alternative - Provider: Yesy Tuttle RN) thrombin (bovine) (THROMBIN-JMI) solution (CANCELED) ONCE PRN, Starting on Sat08/02/15 at 0850, Until Sat08/02/15 at 0955, Intra-Operative (Intra-Procedure) 0850 (Given - Provider: Gerardo Gutierrez MD - Comment: Gelfoam soaked in thrombin 5,000 units and used as needed throughout the case.) Linked Groups Order Group 1: nicotine (NICODERM CQ) 14 mg/24 hr patch 14 mgJump to med 14 mg, Transdermal, Administer over 24 Hours, DAILY, First dose on Sat08/03/15 at 1000, Until Discontinued, Routine And nicotine (NICODERM CQ) 14 mg/24 hr patch Patch Verification (CANCELED) Transdermal, 2 TIMES DAILY, First dose on Sat08/03/15 at 2100, Until Discontinued, Verify nicotine 14 mg/24 hr patch. And nicotine (NICODERM CQ) 14 mg/24 hr patch Patch Removal (CANCELED) Transdermal, DAILY, First dose on Sat08/04/15 at 0900, Until Discontinued, Remove nicotine 14 mg/24 hr patch Group 2: pantoprazole (PROTONIX) tablet 40 mg (CANCELED)Jump to med 40 mg, Oral, DAILY, First dose on Sat08/02/15 at 2000, Until Discontinued, DO NOT CRUSH OR OPEN If unable to take PO, may give IV Or pantoprazole (PROTONIX) injection 40 mg (CANCELED) 40 mg, Intravenous, DAILY, First dose on Sat08/02/15 at 2000, Until Discontinued, Reconstitute with 10 mL of normal saline to a concentration of 4 mg/mL and infuse slowly over 2 minutes., Routine Group 3: acetaminophen (TYLENOL) tablet 650 mgJump to med 650 mg, Oral, EVERY 4 HOURS PRN, Starting on Sat08/02/15 at 0951, Until Sat08/03/15 at 1334, Pain, mild pain, May repeat once in 30 minutes if desired effect not achieved. Do not exceed 4000 mg acetaminophen per day. Mild pain (1-3)., Routine Or acetaminophen (TYLENOL) suppository 650 mg (CANCELED) 650 mg, Rectal, EVERY 4 HOURS PRN, Starting on Sat08/02/15 at 0951, Until Sat08/03/15 at 0833, Pain, mild pain, Give per rectum (IN) if unable to take PO. May repeat once in 30 minutes if desired effect not achieved. Do not exceed 4000 mg acetaminophen per day. Mild pain (1-3)., Routine Group 4: oxyCODONE (ROXICODONE) immediate release tablet 5 mgJump to med 5 mg, Oral, EVERY 4 HOURS PRN, Starting on Sat08/02/15 at 0951, Until Sat08/03/15 at 1334, Pain, mild to moderate pain (1-6), May give an additional 5 mg in 30 minutes once if pain not relieved. Mild to moderate pain (1-6), Routine Or oxyCODONE (ROXICODONE) immediate release tablet 10 mg (CANCELED)Jump to med 10 mg, Oral, EVERY 4 HOURS PRN, Starting on Sat08/02/15 at 0951, Until Sat08/03/15 at 1334, Pain, severe pain (7-10), May give an additional 5 mg in 30 minutes once if pain not relieved. Severe pain (7-10), Routine documented in this encounter Care Teams Automatic Machine Attendant Relationship Specialty Start Date End Date Becky Paredes MD [address] [place] [address] PCP - General 02/28/10 documented as of this encounter
--- OUTSIDE RECORDS SUMMARY | 2024-04-29 15:24 | XMS_ITS | Encounter Summary ---
Author Organization [facility] Address [facility] [place] [address] Care Team Providers Care Commander Internal Affairs Name Role Phone Caro Paredes MD Primary Care Provider [phone] Reason for Visit * Reason Onset Date Comments Post Procedure Call 08/08/2015 Encounter Details Date Type Department Care Team (Late st Contact Info) Description 08/08/2015 Telephone [place] [id number] Tiffanie Franco RN Post Procedure Call Social History Tobacco Use Types Packs/Day Years [...] encounter Miscellaneous Notes * Telephone Encounter - Tiffanie Franco RN - 08/08/2015 10:38 AM EDT F/U call s/p C4-5 ACDF on 08/02/[address] Gutierrez Date: 08/08/15 Neuro: alert and oriented: yes Dizzy or lightheaded: denies Numbness/tingling/weakness: tingling in hands Ambulation: steady Incision: looks good Dissolvable sutures Pain: neck pain, taking Oxycodone 1 tablet every 4-5 hours with relief PO: eating and drinking well B&B: working well-taking Miralax, Colace, and Senekot; urinating well Sleep: 3-4 hours at a time Other: cutting down on smoking documented in this encounter Plan of Treatment Not on file documented as of this encounter Visit Diagnoses Not on filedocumented in this encounter Care Teams Commander Internal Affairs Relationship Specialty Start Date End Date Caro Paredes MD [address] [place] [address] PCP - General 02/28/10 documented as of this encounter
--- OUTSIDE RECORDS SUMMARY | 2024-04-29 15:24 | XMS_ITS | Encounter Summary ---
[place] [address] Care Team Providers Care Hat Steamer Name Role Phone Caro Paredes MD Primary Care Provider [phone] Reason for Visit * Reason Onset Date Comments Follow-up 10/07/2015 Encounter Details Date Type Department Care Team (Late st Contact Info) Description 10/07/2015 Telephone [place] [phone] Subha Ortiz, RN Follow-up Social History Tobacco Use Types Packs/Day Years [...] Miscellaneous Notes * Telephone Encounter - Subha Ortiz, RN - 10/07/2015 12:08 PM EDT Call placed to Maxi Moore PT at [place] office [phone], left VM message requesting recent progress note, to include any test/measures r/t updated work readiness assessment, if performed angela faxed, to my attention to present to Dr Small. Call placed to pt's home left VM message to the same effect. Requested pt check in with me via phone re current status so we could initiate plans with re to RTW vs extension of OOW status based on how he's doing. Pt does have a repeat WRAP pending here in the [facility] 10/11/15. Of note: previous OOW slip extended pt's OOW status until 10/05/15 with plans for review with Dr Small on or after 10/03/15 following review of incoming progress notes/testing by Dr Small. Awaiting progress notes and/or call from pt. 10/07/15 Pt returned call; Pt is scheduled to meet with both Dr Small and Ms Brown Tomás, unfortunately the MD appt is just prio rto the WRAP. Informed pt to advise Dr Small that he will need updated documentation following the Testing. Ms Brown has job description and understands her recommendations will need to be communicated to Dr small for required doscumentation. Informed Cherie she could useme as a conduit. Progress not from Maxi Weems's was shared with Mr Brown for review . Patient advised that the timing of his WRAP was critical as Cherie would need the 2pm hr to performthe test and measures, and that she had subsequent pts which would prevent her from doing the testing later were he delayed in [facility] clinic. Pt verbalized understanding and will be mindful of time on . Upon receipt of updated workstatus as approved by Dr small; Will fax document to VARUN Smith at fax # [phone]. documented in this encounter Plan of Treatment Not on file documented as of this encounter Visit Diagnoses Not on filedocumented in this encounter Care Teams Hat Steamer Relationship Specialty Start Date End Date Caro Paredes MD [address] [place] [address] PCP - General 02/28/10 documented as of this encounter
--- OUTSIDE RECORDS SUMMARY | 2024-04-29 15:24 | XMS_ITS | Encounter Summary ---
Author Organization [facility] Address [facility] [place] [address] Care Team Providers Care Finishing Frame Runner Name Role Phone Caro Paredes MD Primary Care Provider Reason for Visit * Reason Comments Follow-up had xrays done 2 wee ks ago ..[facility] Encounter Details Date Type Department Care Team (Latest Contact Info) Description 10/11/2015 1:30 PM EDT Office [place] [phone] Gerardo Gutierrez MD [facility] [place] [address] [place] [address] Other osteoarthritis of spine, cervical region Social History Tobacco Use Types Packs/Day Years Used Date Smoking Tobacco: Every Day Cigarettes Smokeless Tobacco: Never Alcohol Use Standard Drinks/Week Comments No 0 (1 standard drink = 0.6 oz pur e alcohol) Sex and Gender Information Value Date Recorded Sex Assigned at Not on file Gender Identity Not on file Sexual Orientation Not on file documented as of this encounter Last Filed Vital Signs Vital Sign Reading Time Taken Comments Blood Pressure 100/70 10/11/2015 1:04 PM EDT Pulse 72 10/11/2015 1:04 PM EDT Temperature - - Respiratory Rate - - Oxygen Saturation - - Inhaled Oxygen Concentration - - Weight 61.2 kg (135 lb) 10/11/2015 1:04 PM EDT Height 177.8 cm (5' 10) 10/11/2015 1:04 PM EDT Body Mass Index 19.37 10/11/2015 1:04 PM EDT documented in this encounter Progress Notes * Gerardo Gutierrez MD - 10/11/2015 1:51 PM EDT Krish Dumont returns to [facility] to follow up his anterior cervical diskectomy, allograft, fusion and plating. Since being seen last time, he is doing well. He has minimal discomfort and he is happy with his progress. His wound is nicely healed. Motor strength is full in the upper extremities. X-ray from mid September shows a satisfactory graft and instrument position. I think this represents a satisfactory course. I think it would be reasonable for him to have a program for integration back into work, and I will see him back in 3 months' time with another x-ray. All questions were answered. documented in this encounter Plan of Treatment Not on file documented as of this encounter Visit Diagnoses Diagnosis Other osteoarthritis of spine, cervical region documented in this encounter Care Teams Finishing Frame Runner Relationship Specialty Start Date End Date Caro Paredes MD [address] [place] [address] PCP - General 02/28/10 documented as of this encounter
--- OUTSIDE RECORDS SUMMARY | 2024-04-29 15:24 | XMS_ITS | Encounter Summary ---
Author Organization [facility] [place] [address] Care Team Providers Care Acura Sales Consultant Name Role Phone Caro Paredes MD Primary Care Provider [phone] Encounter Details Date Type Department Care Team (Late st Contact Info) Description 03/15/2015 Notes [place] [address] Nubia Gomez LNA Social History Tobacco Use Types Packs/Day Years Used Date Smoking Tobacco: Every Day Smokeless Tobacco: Never Sex and Gender Information Value Date Recorded Sex Assigned at Not on file Gender Identity Not on file Sexual Orientation Not on file documented as of this encounter Progress Notes * Nubia Gomez LNA - 03/15/2015 2:34 PM EST Faxed Request to Medical Records to release us to communicate to Mr. Dumont Chiropractor. Name: Dr. Osorio [facility] Chiropractor [address] [place] [address] He requested that we send all office notes to in [facility], documented in this encounter Plan of Treatment Not on file documented as of this encounter Visit Diagnoses Not on filedocumented in this encounter Care Teams Acura Sales Consultant Relationship Specialty Start Date End Date Caro Paredes MD [address] [place] [address] PCP - General 02/28/10 documented as of this encounter
--- OUTSIDE RECORDS SUMMARY | 2024-04-29 15:24 | XMS_ITS | Encounter Summary ---
Author Organization [facility] Address [facility] [place] [address] Care Team Providers Care Micromatic Hone Operator Name Role Phone Becky Paredes MD Primary Care Provider [phone] Reason for Visit * Auth/Cert Specialty Diagnoses [...] Expiration Date Visits Re quested Visits Authorized [id number] 1 1 Encounter Details Date Type Department Care Team (Latest Contact Info) Description 08/02/2015 6:00 AM EDT - 08/03/2015 11:34 AM EDT Hospital Encounter [address] [place] [address] Gerardo Gutierrez MD [facility] [place] [address] Spinal stenosis of cervical region Discharge Disposition: Home Social History Tobacco Use Types Packs/Day Years [...] Sign Reading Time Taken Comments Blood Pressure 124/68 08/03/2015 9:42 AM EDT Pulse 62 08/03/2015 9:42 AM EDT Temperature 36.7 ??C (98.1 ??F) 08/03/2015 9:42 AM ED T Respiratory Rate 16 08/03/2015 9:42 AM EDT Oxygen Saturation 99% 08/03/2015 9:42 AM EDT Inhaled Oxygen Concentration - - Weight 61.2 kg (135 lb) 08/02/2015 6:23 AM EDT Height 177.8 cm (5' 10) 08/02/2015 9:00 PM EDT Body Mass Index 19.37 08/02/2015 6:23 AM [...] may be used if needed and are kfjv-sih-ielliyy (OTC) medications available at most local pharmacies. Prunes or prune juice, taken daily, can also be helpful for constipation treatmentor prevention and are available at most [employer] [facility]. Driving Restrictions*: - [X] No driving for [...] ?? Outpatient nurse practitioner - Keyla Sawyer, TARGET DEVELOPER: ?? Inpatient associate providers - Edu Romero PA-C, Edu Dahl PA-C, Becky Navarroer, TARGET DEVELOPER: ?? Neurosurgeons - Dr. Gutierrez, Dr. Williamson, Dr. Swan, Dr. Franklin, and Dr. Trimble: ?? Pediatric Neurosurgeon - Dr. Willard After office hours (5PM to 8AM) and on weekends you can reach neurosurgery by calling the hospital selenium plant operator at and ask for the Neurosurgery resident on-call Neurology/Neurosugery (5W) and Neuro Special Care Unit (NSCU): CC: BECKY PAREDES MD Future Appointments and Orders Future Appointments Provider Department Dept Phone 09/19/2015 11:30 AM Gerardo Gutierrez MD [facility] [phone] Future Orders Complete By Expires XR Cervical Spine 2 Or 3 Views (NR GENERIC) [[id number] Custom] 08/03/2015 08/02/2016 Process Instructions: Scheduling Instructions: [...] may be used if needed and are ejue-wzh-ldmwsiy (OTC) medications available at most local pharmacies. Prunes or prune juice, taken daily, can also be helpful for constipation treatmentor prevention and are available at most [employer]. Driving Restrictions*: - [X] No driving for [...] ?? Outpatient nurse practitioner - Keyla Sawyer, TARGET DEVELOPER: ?? Inpatient associate providers - Edu Romero PA-C, Edu Dahl PA-C, Becky Payton, TARGET DEVELOPER: ?? Neurosurgeons - Dr. Gutierrez, Dr. Williamson, Dr. Swan, Dr. Franklin, and Dr. Trimble: ?? Pediatric Neurosurgeon - Dr. Willard After office hours (5PM to 8AM) and on weekends you can reach neurosurgery by calling the hospital selenium plant operator at and ask for the Neurosurgery [...] EDT Office of Care Management (OCM) / Practice Management Consultant(CM)/ Initial Assessment Discussed patient with Provider Team and in multidisciplinary discharge-planning rounds. Reviewed record and interviewed patient. Introduced/reviewed CM role and services accepted. Discharge Plan: Record reviewed and patient discussed with multidisciplinary team. No discharge needs identified atthis time. Practice Management Consultant remains available as needed for coordination of care and discharge planning. REASON for HOSPITALIZATION: CERVICAL SPONDYLOSIS; s/p C4-5 ACDF PMH :See H&P PREVIOUS FUNCTIONAL STATUS: Cognitively and physically independent CURRENT FUNCTIONAL STATUS:Cognitively and physically independent SOCIAL / FAMILY SUPPORTS: Pt lives in a home with parents. ADVANCE DIRECTIVES: None HEALTH /PRESCRIPTION COVERAGE:[employer] CURRENT HOME/COMMUNITY SERVICES/EQUIPMENT: None DME: Home Health Agency: Other: CAR DUMPER REFERRAL: not needed at this time: PRIMARY CARE PHYSICIAN: BECKY PAREDES MD [address] / [place] [address] POTENTIAL DISCHARGE NEEDS: None ANTICIPATED BARRIERS TO DISCHARGE:None TRANSPORTATION @ D/C: family car PLAN: CM will continue to monitor progress, follow for continuity of care and assist with dischargeplanning while hospitalized . * Shamika Ortega - 08/03/2015 7:13 AM EDT NEUROSURGERY PROGRESS NOTE Krish Dumont [id number] ID: [id number] y.o. gentleman s/p C4-5 ACDF, POD 1 INTERVAL Hx: [...] IVF until good PO. Monitor lytes. Shamika Jordan [id number] * Brendan Ray RN - 08/02/2015 [...] disk. Subsequently, an M8 drill of the [employer] drill was used to drill the [...] [direct monitoring required during toileting and ADLs]: MUSIC LIBRARIAN/RN Surveillance [continuous indirect monitoring]: Call best within [...] no change Goal: Fall Prevention-Safe Patient Handling 08/02/15221908/03/150 08/03/15136 Musculoskeletal Interventions Activity/Level of Assistance -- [...] fall and doesn't require it. RN and MUSIC LIBRARIAN educated the need for it and that [...] or not. RN passed info on to cotton puller. INDIVIDUALIZED FALL PREVENTION INTERVENTIONS: Bed alarm Patient-specific [...] Operative Note Patient Name: Krish Dumont : [id number] MR#: [id number] Case Date: 08/02/2015 Surgeon: Surgeon(s) and Role: [...] Associated Diagnoses Date /Time FILM LIBRARY-FLUORO OR [id number] ONL Imaging Routine 08/02/2015 10: 01 AM EDT Scheduled Orders Name Type Priority Associated Diagnoses Orde r Schedule FILM LIBRARY-FLUORO OR [id number] ONL Imaging Routine Once PRN (f or Radiant use) for 1 Occurrences starting 08/02/2015 until 08/02/2015 documented as of this encounter Procedures Procedure Name Priority Date/Time Associated Diagnosis Comments IMPLANTABLE DEVICES SCAN 08/04/2015 12:00 AM EDT IMPLANTABLE DEVICES SCAN 08/04/2015 12:00 AM EDT BRAND COORDINATOR SCAN 08/04/2015 12:00 AM EDT HEMOGRAM Routine [...] SPONDYLOSIS TYPE AND SCREEN, SDP (FUTURE [place]GERY[place] [facility] STAT 08/02/2015 6:09 [...] SCAN EXT O RDR/RSLT * SCAN DOC: BRAND COORDINATOR (08/04/2015 12:00 AM EDT) Anatomical Region Laterality Modality Other Scanning Provider MEDIA MGR SCAN EXT O RDR/RSLT * Differential, Automated (08/03/2015 5:50 AM EDT) Neutrophil % 73.4 % [facility] Neutrophil Absolute 4.94 1.50 - 6.30 x10(3)/mcL [facility] Lymph % 17.1 % [facility] Lymphocytes Abs 1.2 1.0 - 3.6 x10(3)/[facility] Monocyte % 9.4 % [facility] Monocyte Abs 0.6 0.2 - 1.0 x10(3)/[facility] Eos % 0.0 % [facility] Eosinophils Abs 0.0 0.0 - 0.5 x10(3)/[facility] Basophil % 0.0 % [facility] Baso Absolute 0.0 0.0 - 0.2 x10(3)/[facility] Immature Gran % 0.10 % [facility] Comment: Immature granulocytes(IG's)percentage and absolute count will include metamyelocytes, myelocytes, and promyelocytes. Blood smears from CBCs yielding IG's will be scanned manually for concordance. If this scan disagrees with the automated IG or if promyelocytes are noted, a manual differential will be performed. Immature Gran Absolute 0.01 0.00 - 0.05 x10(3)/[facility] Blood specimen (specimen) 08/03/2015 5:50 AM EDT 08/03/2015 6:08 AM EDT Narrative Resulting Agency Comment Spec In Lab Gerardo Gutierrez MD HEMATOLOGY ORDERABLE S [facility] [place] [address] * Hemogram (08/03/2015 5:50 AM EDT) White Blood Cell 6.7 4.0 - 10.0 x10(3)/[facility] Red Blood Cell 4.83 4.63 - 6.08 x10(6)/[facility] Hemoglobin 14.7 13.7 - 17.5 gm/dL [facility] Hematocrit 43.2 40.0 - 51.0 % [facility] Mean Cell Volume 89.4 79.0 - 92.0 fL [facility] Mean Cell Hemoglobin 30.4 25.6 - 32.2 pg [facility] Mean Cell Hemoglobin Concentration 34.0 32.0 - 36.5 gm/dL [facility] Platelet 159 145 - 370 x10(3)/mcL [facility] RDW Standard Deviation 44.6 35.0 - 46.0 fL [facility] RDW coefficient of variation 13.6 10.9 - 14.4 % [facility] Mean Platelet Volume 10.7 9.0 - 12.0 fL [facility] Blood specimen (specimen) 08/03/2015 5:50 AM EDT 08/03/2015 6:08 AM EDT Narrative Resulting Agency Comment Spec In Lab Gerardo Gutierrez MD HEMATOLOGY ORDERABLE S [facility] [address] * Basic Metabolic Panel (non-fasting) (08/03/2015 5:50 AM EDT) Glucose 109 65 - 199 mg/dL [facility] Comment:Diabetes: >=200 mg/d L plus symptoms Blood Urea Nitrogen 15 10 - 20 mg/dL [facility] Creatinine 0.82 0.80 - 1.50 mg/dL [facility] Comment: Please note that the pediatric reference intervals supplied above were not validated at [facility] Results from pediatric patients should be interpreted in conjunction to the patient's age, height and muscle mass. Sodium 139 135 - 145 mmol/L [facility] Potassium 4.4 3.5 - 5.0 mmol/L [facility] Comment: Please note: ??Patients with WBC >100,000 may have falsely elevated Potassium levels. ??For accurate Potassium quantification in these patients send serum separator tube (gold top) for subsequent determinations. ??Contact the Clinical Chemistry Laboratory if there are any questions. Chloride 105 98 - 107 mmol/L [facility] Carbon Dioxide 25 22 - 31 mmol/L [facility] Anion Gap 9 5 - 15 mmol/L [facility] Calcium 8.6 8.5 - 10.5 mg/dL [facility] Est Glomerular Filtration Rate >60 >=60 [facility] Comment: This estimated GFR (eGFR) value [...] the following links into your internet browser. [email or web address] Blood specimen (specimen) 08/03/2015 5:50 AM EDT 08/03/2015 6:08 AM EDT Narrative Resulting Agency Comment Spec In Lab Gerardo Gutierrez MD CHEMISTRY ORDERABLES [facility] [place] [address] * XR Cervical Spine 2 Or 3 [...] 6:09 AM EDT) Ab Screen Interp Negative [facility] Expires at 2359 on: 08/05/2015 [facility] Blood specimen (specimen) 08/02/2015 6:09 AM EDT 08/02/2015 6:09 AM EDT Narrative Resulting Agency Comment Spec In Lab Gerardo Gutierrez MD BLOOD BANK LAB ORDER EM Performing Organization Address City/[facility]/ZIP Co de Phone Number [facility] [place] [address] * ABO/Rh Typing (08/02/2015 6:09 AM EDT) ABORH Type O Pos [facility] Blood specimen (specimen) 08/02/2015 6:09 AM EDT 08/02/2015 6:09 AM EDT Narrative Resulting Agency Comment Spec In Lab Gerardo Gutierrez MD BLOOD BANK LAB ORDER EM Performing Organization Address City/[facility]/ZIP Co de Phone Number [facility] [address] documented in this encounter Visit Diagnoses Diagnosis Spinal stenosis- Primary Spinal stenosis, unspecified region other than cervical Spinal stenosis of cervical region Spinal stenosis in cervical region documented in this encounter Admitting Diagnoses Diagnosis Spinal [...] Given 08/02/2015 11:05 AM EDT 650 mg bisacodyl (DULCOLAX) EC tablet 10 mg 10 [...] Given 08/03/2015 10:45 AM EDT 10 mg HYDROmorphone (DILAUDID) syringe 0.2-0.4 mg 0.2-0.4 mg, [...] 6:45 AM EDT 1,000 mLs 100 mL/hr nicotine (NICODERM CQ) 14 mg/24 hr patch [...] 9:57 AM EDT 1,000 mLs 100 mL/hr documented in this encounter Active and Recently [...] earlier)2056 (Given - Provider: Leisa Sagastume RN) 05 (Given - Provider: Leisa Sagastume RN) nicotine [...] 2057 (Given - Provider: Leisa Sagastume RN) 08 (Given - Provider: Yesy Tuttle RN) senna-docusate (PERICOLACE) 8.6-50 mg per tablet 2 [...] - Reason: Contraindicated)2057 (Given - Provider: Leisa Sagastume RN) Continuous Medication Order 08/01/2015 08/02/2015 08/03/2015 lactated [...] RN) 0750 (New Bag - Provider: Yesy Tuttle RN)0843 (Stopped - Provider: Yesy Tuttle RN) PRN [...] pain (7-10), Routine 1036 (Given - Provider: Emily Collins RN)1442 (Given - Provider: Emily Collins [...] Routine 1036 (See Alternative - Provider: Emily Collins, YIN)1442 (See Alternative - Provider: Emily Collins RN)2338 [...] 0833, Pain, mild pain, Give per rectum (NM) if unable to take PO. May repeat [...] Routine documented in this encounter Care Teams Micromatic Hone Operator Relationship Specialty Start Date End Date Becky Paredes MD [address] [place] [address] PCP - General 02/28/10 documented as of this encounter
--- OUTSIDE RECORDS SUMMARY | 2024-04-29 15:24 | XMS_ITS | Encounter Summary ---
Author Organization [facility] Address [facility] [place] [address] Care Team Providers Care Sheetfed Press Operator Name Role Phone Caro Paredes MD Primary Care Provider [phone] Reason for Referral * Physical Therapy (Routine) - Specialty Diagnoses / Procedures Referred By Edilia andrade Referred To Contact Physical Therapy Diagnoses Encounter for work capability assessment Post-operative state Gerardo Gutierrez MD [facility] [place] [address] Referral ID Status Reason Start Date Expiration Date V isits Requested Visits Authorized [id number] Evaluate and Treat 09/21/2015 03/19/2016 12 12 Scheduling Instructions Conditioning1-3 visits per week to progress condition in effort to return to work. Work Readiness Asmt ~ 10/03- 10/04 * Occupational Therapy (Routine) - Closed Specialty Diagnoses / Procedures Referred By Edilia t Referred To Contact Occupational Therapy Diagnoses Encounter for work capability assessment Gerardo Gutierrez MD [facility] [place] [address] [facility] [place] [address] Referral ID Status Reason Start Date Expiration Date V isits Requested Visits Authorized [id number] Closed Evaluate and Treat 09/19/2015 09/18/2016 1 1 Reason for Visit * Reason Onset Date Comments Questions 09/19/2015 re record/rtw Encounter Details Date Type Department Care Team (Late st Contact Info) Description 09/19/2015 Tele[place] [address] Subha Wright RN Questions (re record/rtw) Social History Tobacco Use Types Packs/Day Years Used Date Smoking Tobacco: Every Day Smokeless Tobacco: Never Alcohol Use Standard Drinks/Week Comments No 0 (1 standard drink = 0.6 oz pur e alcohol) Sex and Gender Information Value Date Recorded Sex Assigned at Not on file Gender Identity Not on file Sexual Orientation Not on file documented as of this encounter Miscellaneous Notes * Addendum Note - Subha Wright RN - 09/21/2015 10:57 AM EDTAddended by: SUBHA WRIGHT on: 09/21/2015 10:57 AM Modules accepted: Orders * Addendum Note - Subha Wright RN - 09/20/2015 9:40 AM EDTAddended by: SUBHA WRIGHT on: 09/20/2015 09:40 AM Modules accepted: Orders * Addendum Note - Subha Wright RN - 09/20/2015 8:57 AM EDTAddended by: SUBHA WRIGHT on: 09/20/2015 08:57 AM Modules accepted: Orders * Telephone Encounter - Subha Wright RN - 09/19/2015 9:16 AM EDT Received call from pt who reports having called last week and is questioning the status of his CD and medical record information being sent out as he had requested last week. Could see no record of communication last week. Did apologize to pt and explain that the inpt records and the CD is not provided through the clinic; that that is a service that is provided through our image library and medical records release of information dept. Provided direct numbers for both depts in the event he needed to call them directly following the transfer today. Transferred pt to the image library to make arrangement for his imaging and radiology reports; Requested that the image library transfer pt to Medical records when they were done. Pt indicated that he was scheduled to see Dr Gutierrez today and that was rescheduled to 10/11/15 after itwas determined he was away. (NS trim mechanic indicated they had found add'l time on 10/10 to accommodatept). Pt indicated at today's appt he was to have discussed and possibly been cleared for work re-integration. 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 Given the overhead work and his recent cervical spine surgey, suggested that a WRAP be performed to allow for objective testing to facilitate an clear sustainable work re-integration plan. Discussed with pt that I would reach out to Yuliya Tirado @ [facility] ([facility]) ph [phone]; to inform her of extension ofoow status, STD. Advised Yuliya that I would suggest that the STD be extended through 10/05 to allow time for the testing and review with Dr Gutierrez (earliest 10/02). OOW letter faxed to Yuliya at fax # noted above; requesting STD be extended through 10/05/15 as discussed. Will review above in detail with Dr Gutierrez 10/03/15 to initiate work re-integration plan.. 09/19/13 Reviewed WRAP performed by Shabnam Berumen yesterday. Called pt to review plan. Pt interested in having conditioning locally as he lives quite a distance from [facility]. Advised pt that I am arranging for his postop Xray to be performed an [facility] as that is his local hospital which has e-transfer capabilities. Requested he have his postop Xray performed locally and request it be e-transferred to [facility] [address] (noted this need on Xray req which was faxed to [facility]). Faxed Radiology req to [facility]. Called pt to advise him that it would be most effiicient for him to call [facility] radiology to setup an appt. Suggested he make an effort to have Xray performed today or tomorrow AM. Upon our receipt of the imaging, explained that I would request one of Dr Gutierrez's surgical colleagues review the imaging to confirm that there are no activity/wt restrictions that will need to be accounted for when arranging the loal conditioning program. Once imaging has been reviewed; advised pt that I would place order and have it faxed to a local PT. documented in this encounter Plan of Treatment Scheduled Referrals Name Type Priority Associated Diagnoses Order Schedule Referral to Occupational Therapy Outpatient Referral Routine Encounter for work capability assessment Ordered: 09/19/2015 Referral to Physical Therapy Outpatient Referral Routine Encounter for work capability assessment Post-operative state Ordered: 09/21/2015 documented as of this encounter Visit Diagnoses Diagnosis Encounter for work capability assessment Post-operative state Other postprocedural status documented in this encounter Care Teams Sheetfed Press Operator Relationship Specialty Start Date End Date Caro Paredes MD [address] [place] [address] PCP - General 02/28/10 documented as of this encounter
--- OUTSIDE RECORDS SUMMARY | 2024-04-29 15:24 | XMS_ITS | Encounter Summary ---
Author Organization [facility] Address [facility] [place] [address] Care Team Providers Care Cruise Guide Name Role Phone Caro Paredes MD Primary Care Provider [phone] Encounter Details Date Type Department Care Team (Latest Contact Info) Description 09/20/2015 - 09/20/2015 11:59 PM EDT Hospital Encounter Radiology Library at [facility] [place] [address] Gerardo Gutierrez MD [facility] [place] [address] Pain Discharge Disposition: Home Social History Tobacco Use Types Packs/Day Years Used Date Smoking Tobacco: Every Day Smokeless Tobacco: Never Alcohol Use Standard Drinks/Week Comments No 0 (1 standard drink = 0.6 oz pur e alcohol) Sex and Gender Information Value Date Recorded Sex Assigned at Not on file Gender Identity Not on file Sexual Orientation Not on file documented as of this encounter Medications at Time of Discharge [...] 0 08/03/2015 documented as of this encounter Plan of Treatment Not on file documented as of this encounter Procedures Procedure Name Priority Date/Time Associated Diagnosis Comments FILM LIBRARY STORAGE ONLY DX SPINE Routine 09/20/2015 12:00 AM EDT Pain documented in this encounter Results * Film Library- Storage only DX Spine (09/20/2015 12:00 AM EDT) Narrative [facility] - 09/21/2015 9:42 AM EDT This exam is for storage only and is auto-finalizing. Gerardo Gutierrez MD IMG FILM LIBRARY ORD ERABLES [place], [place] documented in this encounter Visit Diagnoses Diagnosis Pain Generalized pain documented in this encounter Care Teams Cruise Guide Relationship Specialty Start Date End Date Caro Paredes MD [address] [place] [address] PCP - General 02/28/10 documented as of this encounter
--- OUTSIDE RECORDS SUMMARY | 2024-04-29 15:24 | XMS_ITS | Encounter Summary ---
Author Organization [facility] [place] [address] Care Team Providers Care Early Head Start Director Name Role Phone Caro Paredes MD Primary Care Provider [phone] Reason for Visit * Auth/Cert Specialty Diagnoses [...] Expiration Date Visits Re quested Visits Authorized [id number] 1 1 Encounter Details Date Type Department Care Team (Late st Contact Info) Description 08/02/2015 7:29 AM EDT Anesthesia [place] [address] Noreen Farley MD Chacon, Joshua F, DO Anesthesia Record Procedure Summary Procedure Name Responsible Anesthesiologist Anesthesia Start Time Anesthesia Stop Time ARTHRODESIS, ANT INTERBODY,DECOMPRES JAKE; CERVICAL BELOW C2 (WRVU 25) (Neck) Noreen Farley MD 08/02/15 0729 08/02/15 0940 Events Date Time Event Comment 08/02/2015 0724 0728 AN Verify 0729 Start 0730 An Start Data 0735 An Induction 0737 An Intubation 0740 Anesthesia Ready 0810 Procedure Start 0906 Break/Relief In DONNA CASE, ROOF BOLTER 0920 Break/Relief Out 09 Extubation/LMA Out 09 an stop data 0940 Recovery or ICU Handoff Delia ent care was transferred to the destination unit staff after review of the patient's medical history, current anesthetic/surgical status and plan, according to the Provider Handoff Checklist. 0940 Stop Meds Name Total IV Lidocaine 50 mg Propofol 380 mg Rocuronium 40 mg PHENYLephrine 80 mcg Ondansetron 8 mg Dexamethasone 4 mg Neostigmine 3 mg Glycopyrrolate 0.4 mg ceFAZolin (ANCEF) 1g in dextrose 5% 50mL 1 g HYDROmorphone 1.6 mg PHENYLephrine INF 240 mcg Labetalol 10 mg Lactated Ringers 800 mL * Agents Name O2 Air N2O Sevoflurane (et) * Blood No blood administrations on file. Lines, Drains, and Airways Type Details Placement Removal Incision 08/02/15; neck; 11/07 12/28 (LDA cleanup utility RA#[id number]); 1715 (LDA cleanup utility RA#[id number]) 08/02/15 0000 by Piper Fisher RN 12/04/21 1715 by Mauricio Farmer (RETIRED) Peripheral IV Line - Single Lumen 08/02/15; 0645; 18 gauge; 0; no longer indicated, removed per policy/procedure, catheter intact; 08/03/15; 1125 08/02/15 0645 by Bibi Sena RN 08/03/15 1125 by Yesy Tuttle, RN Arterial Line 08/02/15; 0729; radi al artery; 20 gauge; no longer indicated, removed per policy, removed per policy/procedure, catheter intact; 08/02/15; 1013 08/02/15 0729 by Yordan Perez DO 08/02/15 1013 by Emily Collins RN ETT Mask Ventilation: Adjunct (2); ETT Type: Cuffed, Oral; ETT Size: 7.5 mm; Mac Blade: 3; Notes: Asleep, Pre-O2; Attempts: 1; Laryngoscopy Grade: 1; ETT Placement Verified By: Auscultation, Capnometry, Visual; Secured at Teeth: 22 cm; Removal Date: 08/02/15; Removal Time: 09 04/26/16 0737 by Yordan Perez DO 08/02/15 0938 by Yordan Perez DO documented in this encounter Social History Tobacco Use Types Packs/Day Years Used Date Smoking Tobacco: Every Day Smokeless Tobacco: Never Alcohol Use Standard Drinks/Week Comments No 0 (1 standard drink = 0.6 oz pur e alcohol) Sex and Gender Information Value Date Recorded Sex Assigned at Not on file Gender Identity Not on file Sexual Orientation Not on file documented as of this encounter OR Notes * Anesthesia Postprocedure Evaluation - Yordan Perez DO - 08/02/2015 9:41 AM EDT [facility] Department of Anesthesiology Post-procedure Note Patient: Krish Dumont Procedure Summary Date Anesthesia Start Anesthesia Stop Room / Location 08/02/15 0729 [facility] OR [facility] MAIN OR Procedure Diagnosis Surgeon Responsible Provider ARTHRODESIS, ANT INTERBODY,DECOMPRESSION; CERVICAL BELOW C2 (N/A Neck); ANT. CX. FUSION INCLUD. MIN. DISCECTOMY; BELOW C2 (N/A Neck); ALLOGRAFT FOR SPINE SURGERY ONLY; STRUCTUAL (N/A ); AUTOGRAFT FORSPINE SURGERY ONLY; STRUCTUAL, BI\TRICORTICAL (N/A ); MODIFIER GLOBUS PROVIDENCE (N/A ); MODIFIER, GLOBUS FORGE (N/A ); MICROSCOPE USE (N/A ) (CERVICAL SPONDYLOSIS) Gerardo Gutierrez MD Fillinger, Mary P, MD All Anesthesia Providers: Anesthesiologist: Noreen Farley MD Stylist Assistant: Yordan Perez DO Last (1hr) Vitals: BP Temp Pulse Resp SpO2 Patient Location: PACU/[facility] Level of Consciousness: Awake and Alert Pain Management: Satisfactory Analgesia PONV: None Cardiovascular Status: At Baseline Respiratory Status: At Baseline Postoperative Fluid Status: Intravascular EUvolemia Possible Anesthetic Complications: NONE apparent at time of evaluation Final Primary Anesthesia Type: General (The anesthetic type performed was the same as planned.) Comments: * Anesthesia Preprocedure Evaluation - Yordan Perez DO - 08/02/2015 6:00 AM EDT Pre-Anesthesia Evaluation for: Krish Dumont a 60 y.o. male. Procedure(s): ARTHRODESIS, ANT INTERBODY,DECOMPRESSION; CERVICAL BELOW C2 ANT. CX. FUSION INCLUD. MIN. DISCECTOMY; BELOW C2 ALLOGRAFT FOR SPINE SURGERY ONLY; STRUCTUAL AUTOGRAFT FOR SPINE SURGERY ONLY; STRUCTUAL, BI\TRICORTICAL MODIFIER GLOBUS PROVIDENCE MODIFIER, GLOBUS FORGE There are no active problems to display for this patient. No past medical history on file. No past surgical history on file. History Substance Use Topics ??? Smoking status: Current Every Day Smoker ??? Smokeless tobacco: Never Used ??? Alcohol Use: Not on file History Drug Use Not on file Allergies Allergen Reactions ??? Iodine And Iodide Containing Products CIS - Rash Medications: MAR and/or home medications have been reviewed. Physical Exam: There were no vitals filed for this visit. There is no height or weight on file to calculate BMI. Airway Assessment: Mallampati: II TM distance: >3 FB Neck ROM: full Cardiovascular Assessment: Rhythm: regular Pulmonary Assessment: (+) decreased breath sounds Dental Assessment: (+) upper dentures Misc Assessment: Patient is wearing No contact(s). IV access: Peripheral line Anesthesia Plan: ASA 2 General, with a(n) intravenous induction 60 yr old male with a PM Hx of cervical spondylosis presents for ACDF. Pt. Smokes less than a pack a day for over 30 years. Denies recent URI, denies GERD, denies CP/SOB, reports good functional tolerance (able to ambulate 2 FOS without problems), and is appropriately NPO. Previous anesthetics: None noted. Plan: GETA. ASA monitors. A-line for invasive BP monitoring. Region - Other Informed Consent: Anesthetic plan and risks discussed with patient. Use of blood products discussed with patient whom consented to blood products. Plan discussed with attending. PAT Staff Note documented in this encounter Miscellaneous Notes * Addendum Note - Noreen Farley MD - 08/02/2015 12:43 PM EDT Addendum created 08/02/15 1243 by Noreen Farley MD Modules edited: Anesthesia Attestations documented in this encounter Plan of Treatment Not on file documented as of this encounter Visit Diagnoses Not on filedocumented in this encounter Administered Medications Inactive Administered Medications - up to 3 most recent administrations Medication Order MAR Action Action Date Dose Rate Site ceFAZolin (ANCEF) 1g in dextrose 5% 50mL 1,000 mg (1 g), Intravenous, ONCE, 1 dose, On Sat08/02/15 at 0645, Administer over 30 Minutes, To be administered upon arrival to the OR within one hour prior to incision., Day of Surgery (Day of Procedure), Indication for (Active or Suspected): Prophylaxis Given 08/02/2015 7:48 AM EDT 1 g dexamethasone (DECADRON) injection PRN, Starting on Sat08/02/15 at 0740, Until Sat08/02/15 at 0942, Anesthesia Intra-op, Routine Given 08/02/2015 7:40 AM EDT 4 mg glycopyrrolate (ROBINUL) multi-dose injection PRN, Starting on Sat08/02/15 at 0922, Until Sat08/02/15 at 0942, Anesthesia Intra-op, Routine Given 08/02/2015 9:22 AM EDT 0.4 mg HYDROmorphone (DILAUDID) injection PRN, Starting on Sat08/02/15 at 0732, Until Sat08/02/15 at 0942, Pain, Anesthesia Intra-op, Routine Given 08/02/2015 8:22 AM EDT 0.6 mg Given 08/02/2015 7:32 AM EDT 1 mg labetalol (NORMODYNE,TRANDATE) multi-dose injection PRN, Starting on Sat08/02/15 at 0928, Until Sat08/02/15 at 0942, High Blood Pressure, Anesthesia Intra-op, Routine Given 08/02/2015 9:30 AM EDT 5 mg Given 08/02/2015 9:28 AM EDT 5 mg lactated ringers infusion CONTINUOUS PRN, Starting on Sat08/02/15 at 0728, Until Sat08/02/15 at 0942, Anesthesia Intra-op New Bag 08/02/2015 7:28 AM EDT lidocaine (PF) (XYLOCAINE) 100 mg/5 mL (2 %) injection PRN, Starting on Sat08/02/15 at 0732, Until Sat08/02/15 at 0942, Anesthesia Intra-op, Routine Given 08/02/2015 7:32 AM EDT 50 mg neostigmine (PROSTIGMINE) multi-dose injection PRN, Starting on Sat08/02/15 at 0922, Until Sat08/02/15 at 0942, Anesthesia Intra-op, Routine Given 08/02/2015 9:22 AM EDT 3 mg ondansetron (ZOFRAN) injection PRN, Starting on Sat08/02/15 at 0924, Until Sat08/02/15 at 0942, Nausea, Anesthesia Intra-op, Routine Given 08/02/2015 9:24 AM EDT 8 mg PHENYLephrine (YOEL-SYNEPHRINE) 20 mg in sodium chloride 250 mL (standard ADULT & Ligia greater than 20kg) infusion CONTINUOUS PRN, Starting on Sat08/02/15 at 0845, Until Sat08/02/15 at 0942, Anesthesia Intra-op, Routine Rate/Dose Change 08/02/2015 8:49 AM EDT 20 mcg/min 15 mL/hr New Bag 08/02/2015 8:45 AM EDT 40 mcg/min 30 mL/hr PHENYLephrine HCl in NS (PF) (YOEL-SYNEPHRINE) 0.8 mg/10 mL (80 mcg/mL) multi-dose injection Syrg PRN, Starting on Sat08/02/15 at 0835, Until Sat08/02/15 at 0942, Anesthesia Intra-op, Routine Given 08/02/2015 8:35 AM EDT 80 mcg propofol (DIPRIVAN) 10 mg/mL bolus injection (Anesthesia) PRN, Starting on Sat08/02/15 at 0735, Until Sat08/02/15 at 0942, Anesthesia Intra-op Given 08/02/2015 8:22 AM EDT 30 mg Given 08/02/2015 7:36 AM EDT 150 mg Given 08/02/2015 7:35 AM EDT 200 mg rocuronium (ZEMURON) multi-dose injection PRN, Starting on Sat08/02/15 at 0735, Until Sat08/02/15 at 0942, Anesthesia Intra-op, Routine Given 08/02/2015 7:35 AM EDT 40 mg documented in this encounter Care Teams Early Head Start Director Relationship Specialty Start Date End Date Caro Paredes MD [address] [place] [address] PCP - General 02/28/10 documented as of this encounter
--- OUTSIDE RECORDS SUMMARY | 2024-04-29 15:24 | XMS_ITS | Clinical Summary ---
Author Organization [facility] Address [facility] [place] [address] Care Team Providers Care Mexican Food Cook Name Role Phone Caro Paredes MD Primary Care Provider [phone] Allergies Active Allergy Reactions Criticality Noted Date Comments Iodine And Iodide Containing Products Rash Medium Medications Medication Sig Dispensed Refills Start Date End Date Status acetaminophen (TYLENOL) 325 mg Tablet Take 2 tablets by mouth every 4 hours as needed for Pain (mild pain). 30 tablet 1 08/03/2015 Active Additional Information Patient not taking.Reported on 10/11/2015 cyclobenzaprine (FLEXERIL) 10 mg Tablet Take 1 tablet by mouth 3 times daily as needed for Muscle spasms. 20 tablet 0 08/03/2015 Active ibuprofen (ADVIL;MOTRIN) 200 mg Tablet Take 400 mg by mouth nightly as needed for Pain. Active Active Problems Problem Noted Date Diagnosed Date Cervical spondylitis 09/19/2015 Spinal stenosis 08/02/2015 Social History Tobacco Use Types Packs/Day Years Used Date Smoking Tobacco: Every Day Cigarettes Smokeless Tobacco: Never Alcohol Use Standard Drinks/Week Comments No 0 (1 standard drink = 0.6 oz pur e alcohol) Sex and Gender Information Value Date Recorded Sex Assigned at Not on file Gender Identity Not on file Sexual Orientation Not on file Last Filed Vital Signs Vital Sign Reading Time Taken Comments Blood Pressure 100/70 10/11/2015 1:04 PM EDT Pulse 72 10/11/2015 1:04 PM EDT Temperature 36.7 ??C (98.1 ??F) 08/03/2015 9:42 AM ED T Respiratory Rate 16 08/03/2015 9:42 AM EDT Oxygen Saturation 99% 08/03/2015 9:42 AM EDT Inhaled Oxygen Concentration - - Weight 61.2 kg (135 lb) 10/11/2015 1:04 PM EDT Height 177.8 cm (5' 10) 10/11/2015 1:04 PM EDT Body Mass Index 19.37 10/11/2015 1:04 PM EDT Plan of Treatment Health Maintenance Due Date Last Done Comments CT Colonography 1953 Colonoscopy 1953 Colorectal Cancer Screening 1953 FIT DNA 1953 FIT 1953 Sigmoidoscopy (10 year) with FIT yearly 1953 Sigmoidoscopy 1953 Hepatitis C Screening 1971 Lipid Screening 1971 Pneumoccocal Vaccine: 50+ (1 of 2 - PCV) 1972 Tetanus/Diphtheria/Pertussis Vaccines (1 - Tdap) 04/20 Zoster vaccine (1 of 2) 2003 Advance Directive 2008 Covid-19 Vaccine (1 - season) 2023 Influenza (Flu) vaccine (1 o f 1 - Influenza standard series) 12/08/2023 Medical Devices Implanted Type Area Business Support Specialist Device Identifier Shelf Expiration Date Model / Serial / Lot Graft,Bn,Cerv ,Forg,Lrd,9mm ([id number]) (Autoreq) - [id number] Implanted:Qty : 1 on 08/02/2015 by Gerardo Gutierrez MD at [facility] IMPLANTS N/A: Spine Cervical DO NOT USE [employer] - [id number] 04/14/2018 865.409S / 0 / [id number] Plate,Prvdce, Cerv,1-Lvl,18 mm ([id number]) ([employer]oreq) - [id number] Implanted:Qty : 1 on 08/02/2015 by Gerardo Gutierrez MD at [facility] IMPLANTS N/A: Spine Cervical DO NOT USE [employer] - [id number] 150.118 / 0 / 0 Screw,Prvdce, Olivia,Sdrl,4.2x 14mm ([id number]) ([employer]) - [id number] Implanted:Qty : 4 on 08/02/2015 by Gerardo Gutierrez MD at [facility] IMPLANTS N/A: Spine Cervical DO NOT USE [employer] - [id number] 150.614 / 0 / 0 Explanted Type Area Business Support Specialist Device Identifier Shelf Expiration Date Model / Serial / Lot Pin,Distrct,T i,Yel,Strl,14 mm ([id number]) - [id number] Explanted:Qty : 1 on 08/02/2015 by Gerardo Gutierrez MD at [facility] IMPLANTS N/A: Spine Cervical [employer] - [id number] DP-14-TY / 0 / 0 Pin,Distrct,T i,Yel,Strl,14 mm ([id number]) - [id number] Explanted:Qty : 1 on 08/02/2015 by Gerardo Gutierrez MD at [facility] IMPLANTS N/A: Spine Cervical [employer] - [id number] DP-14-TY / 0 / 0 Advance Directives * Full Code (Latest Code Status on File) Date Activated Date Inactivated Comments 08/02/2015 6:41 AM 08/03/2015 1:34 PM Question Answer Comments Does patient have capacity to make decision: Yes Care Teams Mexican Food Cook Relationship Specialty Start Date End Date Caro Paredes MD [address] [place] [address] PCP - General 02/28/10
--- OUTSIDE RECORDS SUMMARY | 2024-04-29 15:24 | XMS_ITS | Encounter Summary ---
[place] [address] Care Team Providers Care Learning Engineer Name Role Phone Caro Paredes MD Primary Care Provider [phone] Reason for Visit * Reason Comments Neck Pain Encounter Details Date Type Department Care Team (Late st Contact Info) Description 10/11/2015 2:00 PM EDT Office [place] [id number] Cherie Brown, PT Cervical spondylitis Social History Tobacco Use Types Packs/Day Years [...] as of this encounter Progress Notes * Cherie Brown, LUÍS - 10/11/2015 2:52 PM EDT Work Readiness Assessment Referring Provider: Gerardo Gutierrez M.D. Primary Care Provider: CRAO PAREDES MD Reason for Referral: Mr. Dumont was referred to the [facility] for assistance in determining hiscurrent work capacity prior to an anticipated return to work . Brief Medical History: Mr. Dumont aggravated a prior neck injury while working at [employer] for [employer]. Treatment to date has included ACDFat C4-C5 on 08/02/[address] Gerardo Gutierrez at [facility] and physical therapy for conditioning. Pain: Mr. Dumont reports occassional neck pain. The pain is rated 0/10 at its least and 2/10 at its worst on a 0-10 numerical scale. Symptoms worsen with end range rotation. Symptoms ease with moving out of the painful position. 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 Dumont has been working in his current position in the company for about 37 years. Work Status: Mr. Dumont has been out of work since 08/01/2015. Job Demands: This is a medium-heavy physical demand level job requiring lifting 50-75 pounds on an occasional basis by his description. Mr. Dumont reports that the job description provided by the employer was not the description of his position. Therefore, a current job description and task analysis was not available for review, and the job demands were provided by patient report. Identified At Risk Job Demands: 1. 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 Lifting boards to position them for stacking as they come off the line 3. Pushing/pulling boards into position for stacking as they come off the line AROM: Within normal limits, both upper and lower extremities. Cervical Spine Flexion (0-60??) 60?? Extension (0-50??) 50?? Rot. Right (0-80??) 70?? Rot. Left (0-80??) 65?? Lat. Flex Right (0-45??) 40?? Lat. Flex Left (0-45??) 40?? Mr. Dumont is able to perform a full range squat. Gait: Gait is unremarkable. He is able to heel and toe walk. Strength: Grossly 5/5 bilateral upper and lower extremities. . Upper Body Tasks Ultrasonographer Strength (lbs): Right Left 75 lbs. 85 lbs. 75 lbs. 80 lbs. 70 lbs. 80 lbs. Comments: To attain the tolerances for plastic tile setter strength, a dynamometer in the second position was used. Mr. Dumont is ambidextrous, however is left-hand dominant for writing, and eating. When compared to well-established normative data, Mr. Hoangs bilateral plastic tile setter strength is within the normal rangefor males his age. Cardiovascular Endurance Mr. Dumont completed a multistage, submaximal treadmill protocol by walking for 6 minutes, achieving a speed of 2.5 mph on a 12% grade. This is equivalent to 7 METs with a heart rate of 108 bpm. Reported reason for stop point: fatigue Non Material Handling Tasks Bend No observer or reported limitations Kneel Demonstrated 1 repetition during material handling. Reports he is able to sustain a kneeling position for several minutes Squat Able to perform a full range squat. Reports he is able to sustain a squatting position for several minutes Climb Mr. Dumont reports he is able to ascend and descend one flight of stairs. Stand Mr. Dumont reports no limitations. Walk Mr. Dumont reports no limitations. Sit Mr. Dumont reports 60 minutes. Reach (overhead) Mr. Dumont reports no limitations, but is concerned that he does not have the staminato work overhead for prolonged periods of time Drive Mr. Dumont reports no limitations. Do Fine Motor No observed or reported limitations Comments: To attain the above non material handling tolerances Mr. Dumont was observed during tasks requiring these postures and by self-report. Materials Handling Tasks 1-time Maximum Occasional Carry, 25 feet 60 lbs. 42 lbs. Floor to Waist Lift 40 lbs. 28lbs. 12 to Waist Lift 50 lbs. 28 lbs. Waist to Shoulder Lift 40 lbs. 28 lbs. Shoulder to Overhead Lift 40 lbs. 28 lbs. Push force (25 feet) 40 lbs. 28 lbs. Pull force (25 feet) 41 lbs. 29 lbs. Comments: To attain the material handling tolerances Mr. Dumont carried, lifted, pushed and pulleda succession of weights. He demonstrated good body mechanics. Approximate frequency of lifts or movements are defined by the [place] Department of Labor Employment and Training and Administration. Occasional- Up to 33% of the workday; up to 1 repetition per 30 minutes. 1-time maximum- maximum ability demonstrated in a testing situation Sedentary work defined by the [place] Department of Employment and Training Administration requires lifting no more than 10 lbs. on an occasional basis, with possible lifting of small objects weighing less than 10 lbs. Typical energy requirement -1.5 METS Sedentary-Light work defined by the [place] Department of Employment and Training Administration requires lifting no more than 15 lbs. on an occasional basis or up to 10 lbs. on a more frequent basis. Typical energy requirement -2.0 METS Light work as defined by the [place] Department of Employment and Training Administration requires lifting no more than 20 lbs. on an occasional basis or up to 10 lbs. on a more frequent basis. Typical energy requirement -2.5 METS Light-Medium work as defined by the [place] Department of Employment and Training Administration requires lifting no more than 35 lbs. on an occasional basis or up to 20 lbs. on a more frequent basis. Typical energy requirement -3.0 METS Medium work as defined by the [place] Department of Employment and Training Administration requires lifting up to a maximum of 50 lbs. on an occasional basis or up to 25 lbs. on a more frequent basis. Typical energy requirement -3.5 METS Medium-Heavy work as defined by the [place] Department of Employment and Training Administration requires lifting up to a maximum of 75 lbs. on an occasional basis or up to 35 lbs. on a more frequent basis. Typical energy requirement -4.5 METS Heavy work as defined by the [place] Department of Employment and Training Administration requires lifting up to a maximum of 100 lbs. on an occasional basis or up to 50 lbs. on a more frequent basis. Typical energy requirement -6.0 METS Very Heavy work as defined by the [place] Department of Employment and Training Administration requires lifting over 100 lbs. on an occasional basis or up to 50 lbs. on a more frequent basis. Typical energy requirement - 7.5 to 12 METS Assessment: The above findings were based on an assessment of cardiovascular endurance, physical function, statements made during the evaluation and observations made by the mason apprentice. This evaluation suggests Mr. Dumont is currently functioning at the Light-Medium physical demand level when considering his cardiovascular endurance and ability to lift. In summary, this means Mr. Dumont is not able to return to his previous life style which included work at the Medium-Heavy physical demand level. During a 1 hour assessment, Mr. Dumont demonstrated the tolerances for the identified at-risk job functions. 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 He could benefit from a short term work conditio saarh/strengthening program under the direction of a physical therapist to increase his overall strength and tolerance for overhead work prior to returning to work. Recommendations: - Continue conditioning under the direction of a physical therapist locally to increase overall strength for lifting/pushing/pulling and tolerance for overhead activities. EMPLOYEE WORK CAPABILITY Employee can No Restrictions Frequently Occasionally Unable to Employee can lift/carry maximally 28 lbs. Employee can lift/carry frequently 15 lbs . Bend x Kneel x Employee can work a maximum of Squat x hours/ day, days/ week Climb Stand x Other: Limit sustained overhead reach to 1 minute periods with rest breaks in between Walk x Sit x Reach x Drive x Do Fine Motor x Wrist Elbow Shoulder Ankle No Repetitive Move Right Left Continue Working [ ] Can return to work: NO [ ] YES Date 07/18/2015 This report provides guidance to the occupational health team in assessing Mr. Dumont's work capacity. The result of this testing must be integrated with clinical findings and other observations to derive a final assessment of work capacity. In addition, this report is not intended for use as part of an application for Social Security Disability Insurance. For this purpose a referral to Occupational Medicine is required. 60 minutes were spent interviewing and assessing Mr. Dumont. documented in this encounter Plan of Treatment Not on file documented as of this encounter Visit Diagnoses Diagnosis Cervical spondylitis Cervical spondylosis without myelopathy documented in this encounter Care Teams Learning Engineer Relationship Specialty Start Date End Date Caro Paredes MD [address] [place] [address] PCP - General 02/28/10 documented as of this encounter
--- OUTSIDE RECORDS SUMMARY | 2024-04-29 15:24 | XMS_ITS | Encounter Summary ---
Author Organization [facility] Address [facility] [place] [address] Care Team Providers Care Baby Counselor Name Role Phone Caro Paredes MD Primary Care Provider [phone] Reason for Visit * Auth/Cert Specialty Diagnoses / Procedures Referred By Edilia t Referred To Contact Diagnoses CERVICAL SPONDYLOSIS [...] Expiration Date Visits Re quested Visits Authorized [id number] 1 1 Encounter Details Date Type Department Care Team (Latest Contact Info) Description 08/02/2015 - 08/02/2015 5:59 AM EDT Hospital Encounter Radiology Library at [facility] [place] [phone] Discharge Disposition: Home Social History Tobacco Use [...] for Muscle spasms. 20 tablet 0 08/03/2015 naproxen sodium (ANAPROX) 220 mg Tablet Take 220 mg by mouth 2 times daily (with meals). 08/03/2015 documented as of this encounter Plan of Treatment Pending Results Name Type Priority Associated Diagnoses Date /Time FILM LIBRARY-FLUORO OR [id number] ONL Imaging Routine 08/02/2015 10: 01 AM EDT documented as of this encounter Visit Diagnoses Not on filedocumented in this encounter Care Teams Baby Counselor Relationship Specialty Start Date End Date Caro Paredes MD [address] [place] [address] PCP - General 02/28/10 documented as of this encounter
--- OUTSIDE RECORDS SUMMARY | 2024-04-29 15:24 | XMS_ITS | Encounter Summary ---
Author Organization [facility] Address [facility] [place] [address] Care Team Providers Care Sap Fico Business Analyst Name Role Phone Caro Paredes MD Primary Care Provider [phone] Reason for Visit * Reason Comments Neck Pain * Occupational Therapy (Routine) - Closed Specialty Diagnoses / Procedures Referred By Contac t Referred To Contact Occupational Therapy Diagnoses Encounter for work capability assessment Gerardo Gutierrez MD [facility] [address] [place] [address] [facility] [place] [address] Referral ID Status Reason Start Date Expiration Date V isits Requested Visits Authorized [id number] Closed Evaluate and Treat 09/19/2015 09/18/2016 1 1 Encounter Details Date Type Department Care Team (Late st Contact Info) Description 09/19/2015 3:30 PM EDT Office Visit Functional [facility] Program at [facility] [address] [place] [address] Shabnam Berumen, ISABEL Cervical spondylitis Social History Tobacco Use Types [...] Sign Reading Time Taken Comments Blood Pressure 153/96 09/19/2015 3:52 PM EDT Pulse 72 09/19/2015 3:52 PM EDT Temperature - - Respiratory Rate - - Oxygen Saturation - - Inhaled Oxygen Concentration - - Weight - - Height - - Body Mass Index - - documented in this encounter Progress Notes * Gaviota Berumene Trey, OT - 09/19/2015 3:45 PM EDT Work Readiness Assessment Referring Provider: No primary care provider on file. Primary Care Provider: CARO PAREDES MD Reason for Referral: Mr. Dumont was referred to the [facility] for assistance in determining hiscurrent work capacity prior to an anticipated return to work . Brief Medical History: Mr. Dumont aggravated a prior neck injury while working at [employer] for [employer]. Treatment to date has included ACDFat C4-C5 on 08/02/15, by Dr. Gerardo Gutierrez. Pain: Mr. Dumont reports occassional neck pain. The pain is rated 0/10 at its least and 4/10 at its worst on a 0-10 numerical scale. Symptoms worsen with fast neck rotation movements. Symptoms ease with moving out of the painful position. 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 Dumont has been working in his current position in the company for about 40 years. Work Status: Mr. Dumont has been out of work since 08/01/15. Job Demands: This is a medium-heavy physical [...] Within normal limits, both upper and lower extremities, spine and trunk except cervical spine. Upper and lower extremities within normal limits. Cervical Spine Flexion (0-60??) 60?? Extension (0-50??) 50?? Rot. Right (0-80??) 60?? Rot. Left (0-80??) 65?? Lat. Flex Right (0-45??) 35?? Lat. Flex Left (0-45??) 40?? Mr. Dumont is able to perform a full range squat. Gait: Gait is unremarkable. He is able to heel and toe walk. Strength: Grossly 5/5 bilateral upper and lower extremities. . Upper Body Tasks Grinder Chipper Strength (lbs): Right Left 60 lbs. 73 lbs. 65 lbs. 72 lbs. 65 lbs. 75 lbs. Comments: To attain the tolerances for rail car painter/sandblaster strength, a dynamometer in the second position was used. Mr. Dumont is ambidextrous, however is left-hand dominant for writing, and eating. When compared to well-established normative data, Mr. Hoangs bilateral rail car painter/sandblaster strength is within the normal rangefor males [...] reports 60 minutes. Reach (overhead) Mr. Dumont was able to sustain an overhead reach activity for (minutes:seconds) 1:20, 1:25, 1:35, and 1:10 over a 15 minute period, requiring rest breaks between trials Drive Mr. Dumont reports no limitations. Do Fine Motor No observed or reported limitations Comments: To attain the above non material handling tolerances Mr. Dumont was observed during tasks requiring these postures and by self-report. Materials Handling Tasks 1-time Maximum Occasional Carry, 25 feet 40 lbs. 28 lbs. Floor to Waist Lift 30 lbs. 21 lbs. 12 to Waist Lift 40 lbs. 28 lbs. Waist to Shoulder Lift 30 lbs. 21 lbs. Shoulder to Overhead Lift 30 lbs. 21 lbs. Push force (25 feet) 41 lbs. 29 lbs. Pull force (25 feet) 39 lbs. 27 lbs. Comments: To attain the material handling [...] the evaluation and observations made by the warehouse unloader. This evaluation suggests Mr. Dumont is currently functioning at the Light-Medium physical demand level when considering his cardiovascular endurance and ability to lift. In summary, this means Mr. Dumont is not able to return to his previous life style which included work at the Medium-Heavy physical demand level. During a 1.5 hour assessment, Mr. Dumont demonstrated the tolerances for the identified at-risk job functions. 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 He could benefit from a short term work condit ioning/strengthening program under the direction of a physical therapist to increase his overall strength and tolerance for overhead work prior to returning to work. Recommendations: - Refer for conditioning with [facility] physical therapist for increasing overall strength for lifting/pushing/pulling and tolerance for overhead activities. - Repeat Work Readiness Assessment when Mr. Dumont returns for follow up with referring provider. Has scheduled follow-up visit with Dr. Gutierrez on 10/11/15. EMPLOYEE WORK CAPABILITY Employee can No Restrictions [...] ] Can return to work: NO [ x ] YES [ ] date This report provides guidance to the occupational [...] a referral to Occupational Medicine is required. 90 minutes were spent interviewing and assessing Mr. Dumont. documented in this encounter Plan of Treatment Scheduled Referrals Name Type Priority Associated Diagnoses Order Schedule Referral to Occupational Therapy Outpatient Referral Routine Encounter for work capability assessment Ordered: 09/19/2015 documented as of this encounter Visit Diagnoses Diagnosis Cervical spondylitis Cervical spondylosis without myelopathy documented in this encounter Care Teams Sap Fico Business Analyst Relationship Specialty Start Date End Date Caro Paredes MD [address] [place] [address] PCP - General 02/28/10 documented as of this encounter
--- OUTSIDE RECORDS SUMMARY | 2024-04-29 15:25 | XMS_ITS | Encounter Summary ---
Author Organization [facility] Address [facility] [place] [address] Care Team Providers Care Insulation Worker Apprentice Name Role Phone Caro Paredes MD Primary Care Provider [phone] Encounter Details Date Type Department Care Team (Late st Contact Info) Description 01/21/2015 - 01/21/2015 11:59 PM EDT Hospital Encounter Radiology Library at [facility] [place] [phone] [facility] Discharge Disposition: Home Social History Tobacco Use Types Packs/Day Years Used Date Smoking Tobacco: Never Assessed Sex and Gender Information Value Date Recorded Sex Assigned at Not on file Gender Identity Not on file Sexual Orientation Not on file documented as of this encounter Medications at Time of Discharge Medication Sig Dispensed Refills Start Date End Date diphenhydrAMINE (BENADRYL) 25 mg capsule 50 MG = 2 Capsule(s) PO x1 (1am) 11/29/2006 03/14/2015 predniSONE (DELTASONE) 50 mg tablet Variable by Time of Day POVariable by Time of Day PO. Take 1 (ONE)Tablet(s) (50 MG = 1 Tablet(s)) at 1 AM.Take 1 (ONE)Tablet(s) (50 MG = 1 Tablet(s)) at 5 AM.Take 1 (ONE)Tablet(s) (50 MG = 1 Tablet(s)) at 12 Noon.On a daily basis. 11/29/2006 5 amitriptyline (ELAVIL) 25 mg tablet 11/25/2006 03/14/2015 hydroCODone-acetaminoph en (VICODIN) 5-500 mg per tablet 1-2 Tablet(s), PO, Q4-6H,PRN 04/17/2006 03/14/2015 Magnesium Hydroxide (ARTEAGA MILK OF MAGNESIA) 311 mg Chew 04/17/20062014 documented as of this encounter Plan of Treatment Not on file documented as of this encounter Procedures Procedure Name Priority Date/Time Associated Diagnosis Comments FILM LIBRARY STORAGE ONLY MR SPINE Routine 01/21/2015 12:00 AM EDT Pain documented in this encounter Results * Film Library- Storage only MR Spine (01/21/2015 12:00 AM EDT) Narrative [facility][NOTE 3] - 01/28/2015 9:03 AM EDT See PACS for result report. Dr Goldman [facility] FILM LIBRARY ORD ERABLES [place], [place] documented in this encounter Visit Diagnoses Diagnosis Pain Generalized pain documented in this encounter Care Teams Insulation Worker Apprentice Relationship Specialty Start Date End Date Caro Paredes MD [address] [place] [address] PCP - General 02/28/10 documented as of this encounter
--- OUTSIDE RECORDS SUMMARY | 2024-04-29 15:25 | XMS_ITS | Encounter Summary ---
Author Organization [facility] Address [facility] [place] [address] Care Team Providers Care Legal Secretary Name Role Phone Caro Paredes MD Primary Care Provider [phone] Reason for Visit * Reason Comments Neck Pain Right Shoulder Pain Encounter Details Date Type Department Care Team (Late st Contact Info) Description 03/14/2015 2:30 PM EST Office [place] [phone] Gerardo Gutierrez MD [facility] [place] [address] Cervical spondylosis Social History Tobacco Use Types Packs/Day Years Used Date Smoking Tobacco: Every Day Smokeless Tobacco: Never Sex and Gender Information Value Date Recorded Sex Assigned at Not on file Gender Identity Not on file Sexual Orientation Not on file documented as of this encounter Progress Notes * Gerardo Gutierrez MD - 03/14/2015 3:10 PM EST Krish Dumont is a 59-year-old ambidextrous man who three years ago was swimming and had an episode of neck extension. This resulted in sudden paresthesias into both arms; the thumb, index, and middle finger of both hands; and those paresthesias have persisted since that time, neither improving nor worsening. The pain and tingling is constant. His walking is without difficulty. He has no bowel or bladder dysfunction. He has some difficulty with using his fingers but can do most things. He is allergic to CT DYE. 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 He has had no prior surgeries. He smokes half pack of cigarettes a day. 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 On examination, range of motion of the cervical spine is full on flexion and extension. Motor strength in the upper and lower extremities is full. Deep tendon reflexes are brisk in the upper extremities with spread to the fingers, brisk in the lower extremities with crossed adduction reflexes. His plantar responses are flexor. Proprioception is intact. Xander is negative bilaterally. His gait is reasonably symmetric in appearance, and he can tandem walk. Review of his cervical MRI shows some C4-5 spondylosis with high signal at this level. We had discussion on the options in this situation of further observation or consideration of decompressive surgery. We discussed that as his symptoms have been quite static for three years I am not certain that decompression would make a big subjective improvement on these symptoms. He does have a component of his symptoms that goes from his head into his right shoulder, and that may get better but that given the high signal within the cord and the prior cervical spine injury I think decompression is certainly not unreasonable. We reviewed the risks of surgery including the risk of anesthesia; bleeding; infection; injury to the trachea, esophagus, recurrent laryngeal nerve, great vessels; injury to the spinal cord including the possibility of paralysis; the options of allograft or autograft and why I would suggest allograft in this situation. We did discuss that as he is a chronic smoker he does have a higher chance of nonunion, and all of this was discussed. He would like to think about his options, and he would call with how he would like to proceed. documented in this encounter Plan of Treatment Not on file documented as of this encounter Visit Diagnoses Diagnosis Cervical spondylosis Cervical spondylosis without myelopathy documented in this encounter Care Teams Legal Secretary Relationship Specialty Start Date End Date Caro Paredes MD [address] [place] [address] PCP - General 02/28/10 documented as of this encounter
--- OUTSIDE RECORDS SUMMARY | 2024-04-29 15:25 | XMS_ITS | Encounter Summary ---
Author Organization [facility] Address [address] [place] [address] Care Team Providers Care Fiber Optic Assembly Worker Name Role Phone Unknown, Provider Primary Care Provider Unava ilable Encounter Details Date Type Department Care Team (Late st Contact Info) Description 03/15/2021 Lab Requisition [facility] Pathology & Laboratory Medicine - [address] [address] Outr Resulting Lab, Provider Social History Tobacco Use Types Packs/Day Years Used Date Smoking Tobacco: Never Assessed Sex and Gender Information Value Date Recorded Sex Assigned at Not on file Legal Sex Male 18:31 EST Gender Identity Not on file Sexual Orientation Not on file documented as of this encounter Plan of Treatment Not on file documented as of this encounter Procedures Procedure Name Priority Date/Time Associated Diagnosis Comments PSA TOTAL, DIAGNOSTIC Routine 03/14/2021 16:00 EST documented in this encounter Results * PSA TOTAL, DIAGNOSTIC (03/14/2021 16:00 EST) PSA 1.7 0.0 - 4.5 ng/mL 03/15/2021 17:56 EST [facility] Blood VENOUS BLOOD / Unknown 03/14/2021 16:00 EST 03/15/2021 16:11 EST Narrative [facility] - 03/15/2021 17:56 EST NOTE: Serum PSA concentration should not be interpreted as absolute evidence for the presence or absence of malignant disease. Assayed on Siemens ADVIA Centaur XPT using chemiluminescent technology.??Values obtained by using different assay methods cannot be used interchangeably. us Provider Outr Resulting Lab CHEMISTRY & BLOOD GA S ORDERABLES Final Result [facility] [address] [place] [address] documented in this encounter Visit Diagnoses Not on filedocumented in this encounter Care Teams Fiber Optic Assembly Worker Relationship Specialty Start Date End Date Unknown, Provider, PCP - General 04/07/13 documented as of this encounter
--- OUTSIDE RECORDS SUMMARY | 2024-04-29 15:25 | XMS_ITS | Encounter Summary ---
Author Organization [facility] Address [address] [place] [address] Care Team Providers Care Plate Furnace Operator Name Role Phone Unavailable Primary Care Provider Unavailabl e Encounter Details Date Type Department Care Team (Late st Contact Info) Description 11/23/2002 Results Only [facility] - [facility] conversion [address] [place] [address] Will Frank, DDAc [address] [place] [phone] Social History Tobacco Use Types Packs/Day Years [...] Procedure Name Priority Date/Time Associated Diagnosis Comments SURGICAL PATHOLOGY Routine 11/23/2002 0 :00 EDT documented in this encounter Results * SURGICAL PATHOLOGY (11/23/2002 0:00 EDT) Pathology Report: SURGICAL PATHOLOGY REPORT Reports generated via electronic interface contain original data; however they are lacking the format of the original report. Caution should be taken when reading/interpreti ng unformatted reports. Name: ? KRISH DUMONT ? Accession #: ? [id number] ? : ? 1955 (Age: 47) ??M ? Collect Date: ? 11/23/2002 ? Location: ? [facility] ? Receive Date: ? 11/25/2002 ? Provider: WILL FRANK DDS Copy to: LORE RODRIGUEZ MD ? Final Pathologic Diagnosis: ? 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 Microscopic Description: ? Both biopsies show similar features. ??Both consist of a pedunculated papule. ??The squamous epithelium is markedly hyperplastic and has papillomatosus. ??The squamous cells, in many areas, show HPV- related change including nuclear hyperchromasia, binucleation, and perinuclear vacuole formation. ??The upper levels of the epithelium mature in an central station operator fashion and the basal zone is intact. ??In the larger specimen, there is a deep salivary gland that shows chronic inflammation and atrophy with squamous metaplasia of the salivary duct. ??(Dr. Ott)/[facility] Document reviewed and electronically signed by: Esmer Ott MD Report ??Date: 11/26/2002 12:53 By the signature above, the attending physician certifies that he/she has personally conducted a gross and/or microscopic examination of the described specimens and rendered or confirmed the above diagnosis. Specimen(s) Received: ? Inner aspect of upper lip (left) below vermilion border, 2 nodules of soft tissue, corrugated in appearance, pinkish in color, 1 nodule 4 mm oval, the other 11 mm oval Clinical History: ? Papilloma Gross Description: ? Received in formalin labelled [place] and bx are two lal-white, smooth to wrinkled papules measuring 0.4 x 0.3 x 0.3 cm and 0.7 x 0.6 x 0.5 cm. ??The margins of resection are inked black. ??The smaller papule is bisected and entirely submitted as (A1). ??The larger papule is trisected and entirely submitted as (A2). ??(Maxx Jeronimo)/deb End of Report [facility] 11/23/2002 11/25/2002 9:1 0 EDT Will Frank DDS PATHOLOGY ORDERABLES Final Result [facility] [address] [place] [address] documented in this encounter Visit Diagnoses Not on filedocumented in this encounter
--- OUTSIDE RECORDS SUMMARY | 2024-04-29 15:25 | XMS_ITS | Encounter Summary ---
Author Organization [facility] Address [address] [place] [address] Care Team Providers Care Material Damage Adjuster Name Role Phone Unavailable Primary Care Provider Unavailabl e Encounter Details Date Type Department Care Team (Late st Contact Info) Description 03/31/2013 Results Only [facility] Laboratory Services - [facility] ([facility]) [address] [place], [place] [id number] Harinder Ascencio, DO [address] [facility] [address] [place], [place] [id number] Social History Tobacco Use Types Packs/Day Years [...] Date/Time Associated Diagnosis Comments SURGICAL PATHOLOGY Routine 03/31/2013 21 :01 EST documented in this encounter Results * SURGICAL PATHOLOGY (03/31/2013 21:01 EST) Pathology Report: SURGICAL PATHOLOGY REPORT Reports generated via electronic interface contain original data; however they are lacking the format of the original report. Caution should be taken when reading/interpreti ng unformatted reports. Name: ? KRISH DUMONT ? Accession #: ? [id number] ? : ? 1955 (Age: 57) ??M ? Collect Date: ? 03/31/2013 ? Location: ? [facility] ? Receive Date: ? 04/02/2013 ? Provider: HARINDER ASCENCIO DO Copy to: BECKY EDWARDS MD ? Final Pathologic Diagnosis: RIGHT POSTERIOR HEMORRHAGE, RESECTION: - ??Ano-rectal mucosa with dilated and congested vessels, consistent with hemorrhoids. Document reviewed and electronically signed by: BRAEDEN FRANCIS MD Report ??Date: 04/06/2013 15:59 By the signature above, the attending physician certifies that he/she has personally conducted a gross and/or microscopic examination of the described specimens and rendered or confirmed the above diagnosis. Specimen(s) Received: Right posterior hemorrhoid Clinical History: Strangulated hemorrhoid Gross Description: ? Received in formalin labelled with proper patient identification (initials C, S) and right posterior hemorrhoid is an irregular piece of soft tissue (2.8 x 2.7 x 1.2 cm). One surface is covered by lal granular mucosa, with no distinct skin present. Sectioning reveals a lal-white cut surface with tortuous dilated hemorrhagic filled vessels. Sonography Technologist sections are submitted in 1 and 2. Charlene Calabrese 04/03/2013 09:08 AM End of Report [facility] 03/31/2013 21:0 1 EST 04/02/2013 21:01 EST us Harinder Ascencio DO PATHOLOGY ORDERABLES Fi nal Result [facility] [address] [place] [address] documented in this encounter Visit Diagnoses Not on filedocumented in this encounter
--- OUTSIDE RECORDS SUMMARY | 2024-04-29 15:25 | XMS_ITS | Encounter Summary ---
Author Organization [facility] Address [address] [place] [address] Care Team Providers Care Printing Screen Assembler Name Role Phone Unavailable Primary Care Provider Unavailabl e Encounter Details Date Type Department Care Team (Late st Contact Info) Description 04/04/2007 Results Only [facility] - Maple conversion [address] [place] [address] Harinder Ascencio, DO [address] [facility] [address] [place], [place] [id number] Social History Tobacco Use Types Packs/Day Years [...] Date/Time Associated Diagnosis Comments SURGICAL PATHOLOGY Routine 04/04/2007 0:00 EST documented in this encounter Results * SURGICAL PATHOLOGY (04/04/2007 0:00 EST) Pathology Report: SURGICAL PATHOLOGY REPORT Reports generated via electronic interface contain original data; however they are lacking the format of the original report. Caution should be taken when reading/interpreti ng unformatted reports. Name: ? KRISH DUMONT ? Accession #: ? [id number] ? : ? 1955 (Age: 51) ??M ? Collect Date: ? 04/04/2007 ? Location: ? [facility] ? Receive Date: ? 04/04/2007 ? Provider: HARINDER ASCENCIO DO Copy to: BECKY EDWARDS MD ? Final Pathologic Diagnosis: ? Rectum, biopsies: - Polypoid colonic mucosa with surface hyperplastic changes. ??See comment. Comment: ? Deeper levels have been examined. ??No adenomatous epithelium is identified. (Dr. Scanlon)/[facility] Document reviewed and electronically signed by: Samra Scanlon MD Report ??Date: 04/07/2007 15:25 By the signature above, the attending physician certifies that he/she has personally conducted a gross and/or microscopic examination of the described specimens and rendered or confirmed the above diagnosis. Specimen(s) Received: ? Rectal bx Clinical History: ? Screening colonoscopy Gross Description: ? Received in Hollande's fixative labelled [place] and rectal bx are two lal-pink soft tissue fragments which average 0.3 x 0.2 x 0.1 cm in size. Submitted intact in one cassette. ??(Ashkan Ramirez/[facility] End of Report [facility] 04/04/2007 04/04/2007 20: 19 EST us Harinder Ascencio DO PATHOLOGY ORDERABLES Fi nal Result [facility] [address] [place] [address] documented in this encounter Visit Diagnoses Not on filedocumented in this encounter
--- OUTSIDE RECORDS SUMMARY | 2024-04-29 15:25 | XMS_ITS | Clinical Summary ---
Author Organization [facility] Address [address] [place] [address] Care Team Providers Care Senior Manufacturing Test Engineer Name Role Phone Unknown, Provider Primary Care Provider Unava ilable Encounters Date Type Department Care Team Description 2024 Lab Requisition [facility] [address] [address] Outr Resulting Lab, Provider 04/15/2024 Lab Requisition [facility] [address] [address] Outr Resulting Lab, Provider from Last 3 Months Social History Tobacco Use Types Packs/Day Years Used Date Smoking Tobacco: Never Assessed Sex and Gender Information Value Date Recorded Sex Assigned at Not on file Legal Sex Male 18:31 EST Gender Identity Not on file Sexual Orientation Not on file Plan of Treatment Health Maintenance Due Date Last Done Comments Hepatitis C Screen 1955 Fall Risk Screening 2018 COVID-19 Vaccine (2023- season) 2023 RSV Immunization ( o r 60+ Years) (1 - 1-dose 75+ series) 2028 Procedures Procedure Name Priority Date/Time Associated Diagnosis Comments FECAL BACTERIAL PATHOGENS BY PCR Routine 2024 5:30 EST CELIAC DISEASE PANEL Routine 04/14/2024 11:30 EST from Last 3 Months Results * FECAL BACTERIAL PATHOGENS BY PCR (2024 5:30 EST) Salmonella PCR Negative Negative 04/21/2024 12:02 [facility] Shigella/Enteroin vasive E. coli Negative Negative 04/21/2024 12:02 [facility] HN LAB CAMPYLOBACTER PCR Negative Negative 04/21/2024 12:02 [facility] Shiga Toxin PCR Negative Negative 12:02 [facility] Feces SPECIMEN FROM RECTUM / Unknown 2024 5:30 EST 2024 21:25 EST us Provider Outr Resulting Lab MICROBIOLOGY - GENER AL ORDERABLES Final Result Performing Organization Address [facility]/ZIP Co de Phone Number [facility] [address] [place] [phone] * CELIAC DISEASE PANEL (04/14/2024 11:30 EST) Tissue Transglutaminase Antibody, IgA <4.0 <20.0 CU 04/16/2024 10:40 [facility] Comment: A negative result may be due to IgA deficiency and does not rule out celiac disease. Negative: <20.0 CU Weak Positive: 20.0-30.0 CU Positive: >30.0 CU Results were obtained with the [employer] QUANTA Flash h-tTG IgA chemiluminescent immunoassay. Values obtained with different manufacturers' assay methods may not be used interchangeably. IgA 286 85 - 499 mg/dL 04/16/2024 10:40 [facility] Celiac Disease Interpretation Negative Serology. Celiac disease unlikely. Approximately 10% of patients with celiac disease are seronegative. Patients who are already adhering to a gluten-free diet may also be seronegative. If celiac disease is highly clinically suspected, referral to gastroenterology for additional evaluation is recommended. 04/16/2024 10:40 [facility] Blood VENOUS BLOOD / Unknown 04/14/2024 11:30 EST 04/15/2024 17:47 EST us Provider Outr Resulting Lab IMMUNOLOGY AND SEROL OGY ORDERABLES Final Result [facility] [address] [place] [address] from Last 3 Months Care Teams Senior Manufacturing Test Engineer Relationship Specialty Start Date End Date Unknown, Provider, PCP - General 04/07/13
--- OUTSIDE RECORDS SUMMARY | 2024-04-29 15:25 | XMS_ITS | Referral Summary ---
Author Organization [facility] Address [address] [place] [address] Care Team Providers Care Bucket Pusher Name Role Phone Unknown, Provider Primary Care Provider Unava ilable Encounters Date Type Department Care Team Description 2024 Lab Requisition [facility] [address] [address] Outr Resulting Lab, Provider 04/15/2024 Lab Requisition [facility] [address] [place] [address] Outr Resulting Lab, Provider from Last 3 Months Social History Tobacco Use Types Packs/Day Years Used Date Smoking Tobacco: Never Assessed Sex and Gender Information Value Date Recorded Sex Assigned at Not on file Legal Sex Male 18:31 EST Gender Identity Not on file Sexual Orientation Not on file Plan of Treatment Not on file Procedures Procedure Name Priority Date/Time Associated Diagnosis Comments FECAL BACTERIAL PATHOGENS BY PCR Routine 2024 5:30 EST CELIAC DISEASE PANEL Routine 04/14/2024 11:30 EST from Last 3 Months Results * FECAL BACTERIAL PATHOGENS BY PCR (2024 5:30 EST) Salmonella PCR Negative Negative 04/21/2024 12:02 EST [facility] Shigella/Enteroin vasive E. coli Negative Negative 04/21/2024 12:02 EST [facility] HN LAB CAMPYLOBACTER PCR Negative Negative 04/21/2024 12:02 [facility] Shiga Toxin PCR Negative Negative 12:02 [facility] Feces SPECIMEN FROM RECTUM / Unknown 2024 5:30 EST 2024 21:25 EST us Provider Outr Resulting Lab MICROBIOLOGY - GENER AL ORDERABLES Final Result Performing Organization Address City/[facility] Co de Phone Number [facility] [address] [place] [address] * CELIAC DISEASE PANEL (04/14/2024 11:30 EST) Tissue Transglutaminase Antibody, IgA <4.0 <20.0 CU 04/16/2024 10:40 [facility] Comment: A negative result may be due to IgA deficiency and does not rule out celiac disease. Negative: <20.0 CU Weak Positive: 20.0-30.0 CU Positive: >30.0 CU Results were obtained with the [employer] Flash h-tTG IgA chemiluminescent immunoassay. Values obtained with different manufacturers' assay methods may not be used interchangeably. IgA 286 85 - 499 mg/dL 04/16/2024 10:40 [facility] Celiac Disease Interpretation Negative Serology. Celiac disease unlikely. Approximately 10% of patients with celiac disease are seronegative. Patients who are already adhering to a gluten-free diet may also be seronegative. If celiac disease is highly clinically suspected, referral to gastroenterology for additional evaluation is recommended. 04/16/2024 10:40 [facility] Blood VENOUS BLOOD / Unknown 04/14/2024 11:30 EST 04/15/2024 17:47 EST us Provider Outr Resulting Lab IMMUNOLOGY AND SEROL OGY ORDERABLES Final Result Performing Organization Address City/[facility]/ZIP Co de Phone Number [facility] [address] [place], [place] [id number] from Last 3 Months Care Teams Bucket Pusher Relationship Specialty Start Date End Date Unknown, Provider, PCP - General 04/07/13
--- OUTSIDE RECORDS SUMMARY | 2024-04-29 15:25 | XMS_ITS | Encounter Summary ---
Author Organization [facility] Address [address] [place] [address] Care Team Providers Care Alarm Signaler Name Role Phone Unknown, Provider Primary Care Provider Unava ilable Encounter Details Date Type Department Care Team (Late st Contact Info) Description 04/15/2024 Lab Requisition [facility] Pathology & Laboratory Medicine - [address] [address] Outr Resulting Lab, Provider Social History Tobacco [...] Procedure Name Priority Date/Time Associated Diagnosis Comments CELIAC DISEASE PANEL Routine 04/14/2024 11:30 EST documented in this encounter Results * CELIAC DISEASE PANEL (04/14/2024 11:30 EST) Tissue Transglutaminase Antibody, IgA <4.0 <20.0 CU 04/16/2024 10:40 EST [facility] Comment: A negative result may be due to IgA deficiency and does not rule out celiac disease. Negative: <20.0 CU Weak Positive: 20.0-30.0 CU Positive: >30.0 CU Results were obtained with the [employer] Flash h-tTG IgA chemiluminescent immunoassay. Values obtained with different manufacturers' assay methods may not be used interchangeably. IgA 286 85 - 499 mg/dL 04/16/2024 10:40 EST [facility] Celiac Disease Interpretation Negative Serology. Celiac disease unlikely. Approximately 10% of patients with celiac disease are seronegative. Patients who are already adhering to a gluten-free diet may also be seronegative. If celiac disease is highly clinically suspected, referral to gastroenterology for additional evaluation is recommended. 04/16/2024 10:40 EST [facility] Blood VENOUS BLOOD / Unknown 04/14/2024 11:30 EST 04/15/2024 17:47 EST us Provider Outr Resulting Lab IMMUNOLOGY AND SEROL OGY ORDERABLES Final Result [facility] [address] [place] [address] documented in this encounter Visit Diagnoses Not on filedocumented in this encounter Care Teams Alarm Signaler Relationship Specialty Start Date End Date Unknown, ProviderMD PCP - General 04/07/13 documented as of this encounter
--- OUTSIDE RECORDS SUMMARY | 2024-04-29 15:25 | XMS_ITS | Encounter Summary ---
Author Organization [facility] Address [address] [place] [address] Care Team Providers Care Deposition Operator Name Role Phone Unknown, Provider Primary Care Provider Unava ilable Encounter Details Date Type Department Care Team (Late st Contact Info) Description 08/16/2023 Lab Requisition [facility] Pathology & Laboratory Medicine - [address] [address] Outr Resulting Lab, Provider Social History Tobacco [...] Associated Diagnosis Comments PSA TOTAL, DIAGNOSTIC Routine 08/16/2023 10:35 EDT documented in this encounter Results * PSA TOTAL, DIAGNOSTIC (08/16/2023 10:35 EDT) PSA 3.1 <=6.5 ng/mL 08/16/2023 22:50 EDT [facility] Blood VENOUS BLOOD / Unknown 08/16/2023 10:35 EDT 08/16/2023 21:43 EDT Narrative [facility] - 08/16/2023 22:50 EDT NOTE: Serum PSA concentration should not be interpreted as absolute evidence for the presence or absence of malignant disease. Assayed on Siemens ADVIA Centaur XPT using chemiluminescent technology.??Values obtained by using different assay methods cannot be used interchangeably. us Provider Outr Resulting Lab CHEMISTRY & BLOOD GA S ORDERABLES Final Result [facility] [address] [place] [phone] documented in this encounter Visit Diagnoses Not on filedocumented in this encounter Care Teams Deposition Operator Relationship Specialty Start Date End Date Unknown, Provider, PCP - General 04/07/13 documented as of this encounter
--- OUTSIDE RECORDS SUMMARY | 2024-04-29 15:25 | XMS_ITS | Encounter Summary ---
Author Organization [facility] Address [address] [place] [address] Care Team Providers Care Printing Grey Cloth Tender Name Role Phone Unavailable Primary Care Provider Unavailabl e Encounter Details Date Type Department Care Team (Latest Contact Info) Description 03/31/2013 11:25 EST - 03/31/2013 23:59 EST Hospital Encounter [address] [address] Unknown, Provider, MD Discharge Disposition: Home or Self Care Social History Tobacco Use Types Packs/Day Years Used Date Smoking Tobacco: Never Assessed Sex and Gender Information Value Date Recorded Sex Assigned at Not on file Legal Sex Male 18:31 EST Gender Identity Not on file Sexual Orientation Not on file documented as of this encounter Discharge Disposition Disposition Code Departure Means Destination Home or Self [facility]fp documented in this encounter Plan of Treatment Not on file documented as of this encounter Visit Diagnoses Not on filedocumented in this encounter
--- OUTSIDE RECORDS SUMMARY | 2024-04-29 15:25 | XMS_ITS | Encounter Summary ---
Author Organization [facility] Address [address] [place] [address] Care Team Providers Care Stencil Typist Name Role Phone Unknown, Provider Primary Care Provider Unava ilable Encounter Details Date Type Department Care Team (Late st Contact Info) Description 2024 Lab Requisition [facility] Pathology & Laboratory Medicine - [address] [address] Outr Resulting Lab, Provider Social History Tobacco [...] PATHOGENS BY PCR Routine 2024 5:30 EST documented in this encounter Results * FECAL BACTERIAL PATHOGENS BY PCR (2024 5:30 EST) Salmonella PCR Negative Negative 04/21/2024 12:02 EST [facility] Shigella/Enteroin vasive E. coli Negative Negative 04/21/2024 12:02 EST [facility] HN LAB CAMPYLOBACTER PCR Negative Negative 04/21/2024 12:02 EST [facility] Shiga Toxin PCR Negative Negative 12:02 EST [facility] Feces SPECIMEN FROM RECTUM / Unknown 2024 5:30 EST 2024 21:25 EST us Provider Outr Resulting Lab MICROBIOLOGY - GENER AL ORDERABLES Final Result [facility] [address] [place] [id number] documented in this encounter Visit Diagnoses Not on filedocumented in this encounter Care Teams Stencil Typist Relationship Specialty Start Date End Date Unknown, Provider, PCP - General 04/07/13 documented as of this encounter
--- OUTSIDE RECORDS SUMMARY | 2024-04-29 15:25 | XMS_ITS | Encounter Summary ---
Author Organization [facility] Address [facility] [place] [address] Care Team Providers Care Block Sawyer Name Role Phone Caro Paredes MD Primary Care Provider [phone] Encounter Details Date Type Department Care Team (Latest Contact Info) Description 02/02/2013 - 02/02/2013 11:59 PM EDT Hospital Encounter Radiology [facility] [place] [place] [address] Gerardo Gutierrez MD [facility] [address] Pain Discharge Disposition: Home Social History Tobacco [...] Tablet(s), PO, Q4-6H,PRN 04/17/2006 03/14/2015 Magnesium Hydroxide (RATEAGA MILK OF MAGNESIA) 311 mg Chew 04/17/20062014 documented as of this encounter Plan of Treatment Not on file documented as of this encounter Procedures Procedure Name Priority Date/Time Associated Diagnosis Comments FILM LIBRARY STORAGE ONLY DX SPINE Routine 02/02/2013 12:00 AM EDT Pain documented in this encounter Results * Film Library- Storage only DX Spine (02/02/2013 12:00 AM EDT) Narrative [facility] - 09/21/2015 9:39 AM EDT This exam is for storage only and is auto-finalizing. Gerardo Gutierrez MD IMG FILM LIBRARY ORD ERABLES Performing Organization Address City/State/[facility] Co de Phone Number [place], [place] documented in this encounter Visit Diagnoses Diagnosis Pain Generalized pain documented in this encounter Care Teams Block Sawyer Relationship Specialty Start Date End Date Caro Paredes MD [address] [place] [address] PCP - General 02/28/10 documented as of this encounter
[2024-04-29 16:52] LABS: C Diff PCR Negative (Negative)
== END 2024-04-29 15:22 | disposition home or self-care (01) ==
LOC: NCHCN 15:21
PROVIDERS: PCP Family Medicine; Visit Provider Family Medicine
DX: R19.7 Diarrhea, unspecified (principal)
CPT/HCPCS: 87493

== ENCOUNTER 2024-06-25 10:00 | Outpatient (REF) | payer MEDICARE, SELFPAY ==
[2024-07-04 19:29] LABS: Lactoferrin, Qt, Stool <6.25 mcg/mL (<7.25)
== END 2024-06-25 10:01 | disposition home or self-care (01) ==
LOC: LBN 10:00
PROVIDERS: PCP Family Medicine; Visit Provider Internal Medicine Gastroenterology
DX: K52.839 Microscopic colitis, unspecified (principal); R19.7 Diarrhea, unspecified
CPT/HCPCS: 83631